=== PATIENT | female | born 1985 | race Caucasian/White ===

== ENCOUNTER 2017-02-16 22:28 | Emergency (ER) | payer SELFPAY ==
--- NOTE | 2017-02-16 22:36 | EDM.PDOC ---
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 Allergies/ADRs: Allergies cephalexin [From Keflex] Allergy (Verified 02/16/17 22:33) Anaphylactic Shock ibuprofen Allergy (Verified 02/16/17 22:33) Anaphylactic Shock Home Medications: Ambulatory Orders QUEtiapine [SEROquel] 100 mg PO DAILY 02/16/17 [Confirmed 02/16/17] Sertraline [Zoloft] 100 mg PO DAILY 02/16/17 [Confirmed 02/16/17] Review of Systems - Review of Systems Review Of Systems: ROS reveals no pertinent complaints other than HPI. Trauma Exam - Physical Exam Exam: See Below Exam Limited By: No limitations General Appearance: Reports: alert, WD/WN, no apparent distress Head: Reports: atraumatic Ears: Reports: hearing grossly normal Throat/Mouth: Reports: Normal voice, No airway compromise Neck: Reports: non-tender, full range of motion Respiratory Exam: Reports: no respiratory distress Cardiovascular: Reports: regular rate, rhythm GI/Abdominal: Reports: soft, non tender Extremities: Reports: pain with movement, tenderness, other (right shoulder tander @ rotator cuff region, NV wnl) Neurologic: Reports: no motor/sensory deficits, alert, normal mood/affect, oriented x 3 Skin: Reports: Normal color, Warm/dry Course - Vital Signs Last Recorded V/S: Last Vital Signs Temp 36.6 C 02/16/17 22:34 Pulse 67 02/16/17 22:34 Resp 20 02/16/17 22:34 BP 116/74 02/16/17 22:34 Pulse Ox 100 02/16/17 22:34 - Orders/Labs/Meds Meds: Medications Discontinued Medications Generic Name Dose Route Start Last Admin Trade Name Freq PRN Reason Stop Dose Admin Cyclobenzaprine HCl 10 mg 02/16/17 23:14 Flexeril PO 02/16/17 23:15 ONETIME ONE - Re-Assessments/Exams Free Text/Narrative Re-Assessment/Exam: 03/18/17 23:15 results discussed with Pt who states forgot to mention been having shooting pains past few days. Departure - Departure Time of Disposition: 23:16 Disposition: Home, Self-Care 01 Condition: good Clinical Impression: Rotator cuff disorder Qualifiers: Laterality: right Qualified Code(s): M67.911 - Unspecified disorder of synovium and tendon, right shoulder Instructions: Rotator Cuff Tendinitis Forms: ED Department Discharge Additional Instructions: 1) avoid excess use of right shoulder 2) see clinic Saturday for possible Neurology or Orthopedic or MRI scan of right rotator cuff tendonitis rx given: flexeril 10mg bid prn
[2017-02-16 22:37] VITALS: BP 116/74
[2017-02-16] MEDS ORDERED: Cyclobenzaprine 10 MG Tab PO ONE (23:14)
== END 2017-02-16 23:20 | disposition home or self-care (01) ==
LOC: DL.ED 22:28
DX: M67.911 Unspecified disorder of synovium and tendon, right shoulder (principal); Z88.1 Allergy status to other antibiotic agents; Z88.6 Allergy status to analgesic agent
CPT/HCPCS: 73030; 99283; A9270

== ENCOUNTER 2017-05-30 22:35 | Emergency (ER) | payer MEDICAID, OTHER ==
[2017-05-30 22:41] VITALS: BP 113/75
[2017-05-30] MEDS ORDERED: Acetaminophen/HYDROcodone 325-10 MG Tab PO ONE ×2 (22:54→23:01)
[2017-05-30] MEDS ORDERED: Acetaminophen/HYDROcodone 325-10 MG Tab ONE (23:01)
--- NOTE | 2017-05-30 23:02 | EDM.PDOC ---
ED HPI GENERAL MEDICAL PROBLEM - General Chief Complaint: Chest Pain Stated Complaint: RT BREAST VERY PAINFUL, [id number] Time Seen by Provider: 05/30/17 22:55 Source of Information: Reports: Patient, Family History Limitations: Reports: No Limitations - History of Present Illness INITIAL COMMENTS - FREE TEXT/NARRATIVE: c/o painful lump right breast past week. saw PMD told was probably cyst and to return for US. feeling worse more painful. Right Breast Pain Score (Numeric/FACES): 8 - Related Data Allergies Allergy/AdvReac Type Severity Reaction Status Date / Time cephalexin [From Keflex] Allergy Anaphylactic Verified 05/30/17 22:41 Shock ibuprofen Allergy Anaphylactic Verified 05/30/17 22:41 Shock Home Meds: Home Meds Sertraline [Zoloft] 100 mg PO DAILY 02/16/17 [History] Levothyroxine 25 mcg PO ACBREAKFAST 05/30/17 [History] traZODone HCl [Trazodone HCl] 50 mg PO QPM 05/30/17 [History] Past Medical History Musculoskeletal History: Reports: Fracture Psychiatric History: Reports: Anxiety, PTSD Other Psychiatric History: borderline personality disorder Endocrine/Metabolic History: Reports: Hyperthyroidism - Past Surgical History HEENT Surgical History: Reports: Other (See Below) Other HEENT Surgeries/Procedures: reconstructive ear surgery x12 Social & Family History - Tobacco Use Smoking Status *Q: Current Every Day Smoker Years of Tobacco use: 18 Packs/Tins Daily: 0.2 Second Hand Smoke Exposure: Yes - Recreational Drug Use Recreational Drug Use: No ED ROS GENERAL - Review of Systems Review Of Systems: ROS reveals no pertinent complaints other than HPI. ED EXAM, GENERAL - Physical Exam Exam: See Below Exam Limited By: No Limitations General Appearance: Alert, WD/WN, Mild Distress, Other (crying) Ears: Hearing Grossly Normal Throat/Mouth: Normal Voice, No Airway Compromise Head: Atraumatic Neck: Non-Tender, Full Range of Motion Respiratory/Chest: No Respiratory Distress Cardiovascular: Normal Peripheral Pulses GI/Abdominal: Soft, Non-Tender Neurological: Alert, Oriented, Normal Cognition, Normal Gait, No Motor/Sensory Deficits Psychiatric: Tearful Skin Exam: Other (lapable mass right breat @ medial superior quadrant. no s/s overlying cellulitis/lymphangitis) Course - Vital Signs Last Recorded V/S: Last Vital Signs Temp 37.3 C 05/30/17 22:38 Pulse 100 05/30/17 22:38 Resp 20 05/30/17 22:38 BP 113/75 05/30/17 22:38 Pulse Ox 96 05/30/17 22:38 - Orders/Labs/Meds Orders: Active Orders 24 hr Category Date Time Status Acetaminophen/HYDROcodone [[place] 325-10 MG] Med 05/30/17 22:54 Once 1 tab PO ONETIME ONE Departure - Departure Time of Disposition: 23:02 Disposition: Home, Self-Care 01 Condition: Good Clinical Impression: Breast pain, right - Discharge Information Instructions: Nonspecific Chest Pain, [id number] Forms: ED Department Discharge Additional Instructions: 1) avoid bending lifting straining nest 5 to 6 days 2) see family doctor tomorrow for ULTRASOUND OF BREAST IN [place] 3) try heat to sore area rx given; vicodin 5/325mg bid prn x 12 - My Orders Last 24 Hours: My Active Orders 05/30/17 22:54 Acetaminophen/HYDROcodone [[place] 325-10 MG] 1 tab PO ONETIME ONE - Assessment/Plan Last 24 Hours: My Active Orders 05/30/17 22:54 Acetaminophen/HYDROcodone [[place] 325-10 MG] 1 tab PO ONETIME ONE
== END 2017-05-30 23:08 | disposition home or self-care (01) ==
LOC: DL.ED 22:35
DX: N64.4 Mastodynia (principal); F41.9 Anxiety disorder, unspecified; E05.90 Thyrotoxicosis, unspecified without thyrotoxic crisis or storm; F17.210 Nicotine dependence, cigarettes, uncomplicated; Z98.890 Other specified postprocedural states; Z79.899 Other long term (current) drug therapy; Z88.1 Allergy status to other antibiotic agents; Z88.6 Allergy status to analgesic agent
CPT/HCPCS: 99283; A9270

== ENCOUNTER 2017-06-01 18:16 | Emergency (ER) | payer MEDICAID, OTHER ==
[2017-06-01] MEDS ORDERED: Acetaminophen 325 MG Tab PO ONE (18:55)
--- NOTE | 2017-06-01 19:56 | EDM.PDOC ---
ED HPI GENERAL MEDICAL PROBLEM - General Chief Complaint: Fever Stated Complaint: HI FEVER [id number] Time Seen by Provider: 06/01/17 19:45 Source of Information: Reports: Patient, Family (spouse) History Limitations: Reports: No Limitations - History of Present Illness INITIAL COMMENTS - FREE TEXT/NARRATIVE: This 32 yo female patient reports to the ED with a fever, generalized body aches , a cough and right breast pain. The patient has been seen in the ED in the past week and by her clinic provider in the past week for her right breast pain. The patient reports she is scheduled for further testing on 06/05/17 in [place] for her breast swelling and pain. The patient reports she has not been started on any antibiotics a this time. The patient reports she has been having a cough for the past week with greenish sputum. The patient reports she took Tylenol at about noon today. 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 (at noon) Chest Pain Score (Numeric/FACES): 8 - Related Data Allergies Allergy/AdvReac Type Severity Reaction Status Date / Time cephalexin [From Keflex] Allergy Anaphylactic Verified 06/01/17 18:39 Shock ibuprofen Allergy Anaphylactic Verified 06/01/17 18:39 Shock Home Meds: Home Meds Sertraline [Zoloft] 100 mg PO DAILY 02/16/17 [History] Levothyroxine 25 mcg PO ACBREAKFAST 05/30/17 [History] traZODone HCl [Trazodone HCl] 50 mg PO QPM 05/30/17 [History] Hydrocodone/Acetaminophen [Vicodin 5-300 mg Tablet] 1 tab PO BID PRN 06/01/17 [ History] Past Medical History Musculoskeletal History: Reports: Fracture Psychiatric History: Reports: Anxiety, PTSD Other Psychiatric History: borderline personality disorder Endocrine/Metabolic History: Reports: Hypothyroidism - Past Surgical History HEENT Surgical History: Reports: Other (See Below) Other HEENT Surgeries/Procedures: reconstructive ear surgery x12 Social & Family History - Family History Family Medical History: Noncontributory - Tobacco Use Smoking Status *Q: Current Every Day Smoker Years of Tobacco use: 20 Packs/Tins Daily: 0.5 Second Hand Smoke Exposure: Yes - Caffeine Use Caffeine Use: Reports: None - Recreational Drug Use Recreational Drug Use: No ED ROS GENERAL - Review of Systems Review Of Systems: ROS reveals no pertinent complaints other than HPI. ED EXAM, GENERAL - Physical Exam Exam: See Below Exam Limited By: No Limitations General Appearance: Alert, WD/WN, Moderate Distress, Thin Eye Exam: Bilateral Eye: EOMI, Normal Inspection, PERRL Ears: Normal External Exam, Other (canals have been surgically closed) Nose: Normal Inspection, Normal Mucosa, No Blood Throat/Mouth: Normal Inspection, Normal Lips, Normal Teeth, Normal Gums, Normal Voice, No Airway Compromise, Inflammation (posterior pharynx) Head: Atraumatic, Normocephalic Neck: Normal Inspection, Supple, Non-Tender, Full Range of Motion Respiratory/Chest: No Respiratory Distress, Lungs Clear, Normal Breath Sounds, No Accessory Muscle Use, Chest Non-Tender Cardiovascular: Normal Peripheral Pulses, Regular Rate, Rhythm, No Edema, No Gallop, No JVD, No Murmur, No Rub GI/Abdominal: Normal Bowel Sounds, Soft, Non-Tender, No Organomegaly, No Distention, No Abnormal Bruit, No Mass (Female) Exam: Deferred Rectal (Female) Exam: Deferred Back Exam: Normal Inspection, Full Range of Motion, NT Extremities: Normal Inspection, Normal Range of Motion, Non-Tender, Normal Capillary Refill, No Pedal Edema Neurological: Alert, Oriented, CN II-XII Intact, Normal Cognition, Normal Gait, Normal Reflexes, No Motor/Sensory Deficits Psychiatric: Normal Affect, Normal Mood Skin Exam: Warm, Dry, Intact, Normal Color (breast), No Rash, Erythema Lymphatic: No Adenopathy Course - Vital Signs Last Recorded V/S: Last Vital Signs Temp 38.9 C H 06/01/17 19:05 Pulse 108 H 06/01/17 18:44 Resp 20 06/01/17 18:44 BP 102/58 L 06/01/17 18:44 Pulse Ox 100 06/01/17 18:44 - Orders/Labs/Meds Orders: Active Orders 24 hr Category Date Time Status Chest 2V [CR] Urgent Exams 06/01/17 19:56 Ordered CULTURE BLOOD [BC] Stat Lab 06/01/17 19:50 Ordered CULTURE BLOOD [BC] Stat Lab 06/01/17 19:50 Ordered CULTURE STREP A CONFIRMATION [RM] Stat Lab 06/01/17 18:53 Results STREP SCRN A RAPID W CULT CONF [RM] Stat Lab 06/01/17 18:53 Results Blood Culture x2 Reflex Set [OM.PC] Stat Oth 06/01/17 19:50 Ordered Labs: Laboratory Tests 06/01/17 06/01/17 06/01/17 Range/Units 19:23 19:23 19:23 WBC (5.0-10.0) 10^3/uL RBC (4.2-5.4) 10^6/uL Hgb (12.0-16.0) g/dL Hct (37.0-47.0) % MCV (80-100) fL MCH (27.0-34.0) pg MCHC (33.0-35.0) g/dL Plt Count (150-450) 10^3/uL Neut % (Auto) (42.2-75.2) % Lymph % (Auto) (20.5-50.1) % [place] % (Auto) (2-8) % Eos % (Auto) (1.0-3.0) % Baso % (Auto) (0.0-1.0) % Sodium (135-145) mmol/L Potassium (3.6-5.0) mmol/L Chloride (101-111) mmol/L Carbon Dioxide (21.0-31.0) mmol/L Anion Gap BUN (7-18) mg/dL Creatinine (0.6-1.3) mg/dL Est Cr Clr Drug Dosing Estimated GFR (MDRD) BUN/Creatinine Ratio Glucose (74-105) mg/dL Lactic Acid (0.5-2.2) mmol/L Calcium (8.4-10.2) mg/dl Total Bilirubin (0.2-1.0) mg/dL AST (10-42) IU/L ALT (10-60) IU/L Alkaline Phosphatase (42-121) IU/L Total Protein (6.7-8.2) g/dl Albumin (3.2-5.5) g/dl Globulin Albumin/Globulin Ratio Urine Color Yellow (YELLOW) Urine Appearance Clear (CLEAR) Urine pH 7.0 (5.0-9.0) Ur Specific Busy 1.010 (1.005-1.030) Urine Protein Negative (NEGATIVE) Urine Glucose (UA) Negative (NEGATIVE) Urine Ketones Negative (NEGATIVE) Urine Occult Blood Trace-lysed H (NEGATIVE) Urine Nitrite Negative (NEGATIVE) Urine Bilirubin Negative (NEGATIVE) Urine Urobilinogen 0.2 (0.2-1.0) mg/dL Ur Leukocyte Esterase Negative (NEGATIVE) Urine RBC 0-5 /HPF Urine WBC 0-5 (0-5/HPF) /HPF Ur Epithelial Cells Rare /HPF Urine Bacteria Rare (0-FEW/HPF) /HPF Urine HCG, Qual Negative Urine Opiates Screen Positive H (NEGATIVE) Ur Oxycodone Screen Negative (NEGATIVE) Urine Methadone Screen Negative (NEGATIVE) Ur Barbiturates Screen Negative (NEGATIVE) U Tricyclic Antidepress Negative (NEGATIVE) Ur Phencyclidine Scrn Negative (NEGATIVE) Ur Amphetamine Screen Negative (NEGATIVE) U Methamphetamines Scrn Negative (NEGATIVE) Urine MDMA Screen Negative (NEGATIVE) U Benzodiazepines Scrn Negative (NEGATIVE) Urine Cocaine Screen Negative (NEGATIVE) U Marijuana (THC) Screen Negative (NEGATIVE) 06/01/17 06/01/17 06/01/17 Range/Units 20:00 20:00 20:00 WBC 15.0 H (5.0-10.0) 10^3/uL RBC 3.87 L (4.2-5.4) 10^6/uL Hgb 11.9 L (12.0-16.0) g/dL Hct 34.9 L (37.0-47.0) % MCV 90.2 (80-100) fL MCH 30.7 (27.0-34.0) pg MCHC 34.1 (33.0-35.0) g/dL Plt Count 178 (150-450) 10^3/uL Neut % (Auto) 80.0 H (42.2-75.2) % Lymph % (Auto) 12.7 L (20.5-50.1) % [place] % (Auto) 6.7 (2-8) % Eos % (Auto) 0.5 L (1.0-3.0) % Baso % (Auto) 0.1 (0.0-1.0) % Sodium 137 (135-145) mmol/L Potassium 3.5 L (3.6-5.0) mmol/L Chloride 104 (101-111) mmol/L Carbon Dioxide 23.0 (21.0-31.0) mmol/L Anion Gap 13.5 BUN 7 (7-18) mg/dL Creatinine 0.8 (0.6-1.3) mg/dL Est Cr Clr Drug Dosing TNP Estimated GFR (MDRD) > 60 BUN/Creatinine Ratio 8.75 Glucose 96 (74-105) mg/dL Lactic Acid 0.5 (0.5-2.2) mmol/L Calcium 8.9 (8.4-10.2) mg/dl Total Bilirubin 0.9 (0.2-1.0) mg/dL AST 16 (10-42) IU/L ALT 13 (10-60) IU/L Alkaline Phosphatase 68 (42-121) IU/L Total Protein 6.8 (6.7-8.2) g/dl Albumin 3.9 (3.2-5.5) g/dl Globulin 2.9 Albumin/Globulin Ratio 1.34 Urine Color (YELLOW) Urine Appearance (CLEAR) Urine pH (5.0-9.0) Ur Specific Busy (1.005-1.030) Urine Protein (NEGATIVE) Urine Glucose (UA) (NEGATIVE) Urine Ketones (NEGATIVE) Urine Occult Blood (NEGATIVE) Urine Nitrite (NEGATIVE) Urine Bilirubin (NEGATIVE) Urine Urobilinogen (0.2-1.0) mg/dL Ur Leukocyte Esterase (NEGATIVE) Urine RBC /HPF Urine WBC (0-5/HPF) /HPF Ur Epithelial Cells /HPF Urine Bacteria (0-FEW/HPF) /HPF Urine HCG, Qual Urine Opiates Screen (NEGATIVE) Ur Oxycodone Screen (NEGATIVE) Urine Methadone Screen (NEGATIVE) Ur Barbiturates Screen (NEGATIVE) U Tricyclic Antidepress (NEGATIVE) Ur Phencyclidine Scrn (NEGATIVE) Ur Amphetamine Screen (NEGATIVE) U Methamphetamines Scrn (NEGATIVE) Urine MDMA Screen (NEGATIVE) U Benzodiazepines Scrn (NEGATIVE) Urine Cocaine Screen (NEGATIVE) U Marijuana (THC) Screen (NEGATIVE) Meds: Medications Discontinued Medications Generic Name Dose Route Start Last Admin Trade Name Freq PRN Reason Stop Dose Admin Acetaminophen 650 mg 06/01/17 18:55 06/01/17 19:04 Tylenol PO 06/01/17 18:56 650 mg NOW ONE Administration Amoxicillin/Clavulanate Potassium 1 tab 06/01/17 20:53 Augmentin 875 Mg/125 Mg PO 06/01/17 20:54 ONETIME ONE Guaifenesin/Codeine Phosphate 5 ml 06/01/17 20:53 Robitussin Ac PO 06/01/17 20:54 ONETIME ONE Departure - Departure Time of Disposition: 20:57 Disposition: Home, Self-Care 01 Condition: Fair Clinical Impression: Pneumonia Qualifiers: Pneumonia type: due to unspecified organism Laterality: left Lung location: lower lobe of lung Qualified Code(s): J18.1 - Lobar pneumonia, unspecified organism - Discharge Information Instructions: Community-Acquired Pneumonia, Adult, [id number] Forms: ED Department Discharge Care Plan Goals: The patient was advised of the examination, lab and x-ray results during the visit. The patient was given an oral dose of Augmentin and Robitussin AC while in the ED. The patient was discharged with a dose of Augmentin for the morning and a script for Augmentin (875/125) to take 1 by mouth 2 times per day for 10 days and Robitussin AC #100 mL to take 5 mL by mouth at bedtime as needed. If the patient has any additional symptoms or concerns, the patient should follow- up with her primary care facility or return to the emergency department. - My Orders Last 24 Hours: My Active Orders 06/01/17 18:53 CULTURE STREP A CONFIRMATION [RM] Stat STREP SCRN A RAPID W CULT CONF [RM] Stat 06/01/17 19:50 CULTURE BLOOD [BC] Stat CULTURE BLOOD [BC] Stat Blood Culture x2 Reflex Set [OM.PC] Stat 06/01/17 19:56 Chest 2V [CR] Urgent - Assessment/Plan Last 24 Hours: My Active Orders 06/01/17 18:53 CULTURE STREP A CONFIRMATION [RM] Stat STREP SCRN A RAPID W CULT CONF [RM] Stat 06/01/17 19:50 CULTURE BLOOD [BC] Stat CULTURE BLOOD [BC] Stat Blood Culture x2 Reflex Set [OM.PC] Stat 06/01/17 19:56 Chest 2V [CR] Urgent
[2017-06-01 20:22] LABS: CHLORIDE,CL 104 mmol/L (101-111); SODIUM,NA 137 mmol/L (135-145)
[2017-06-01] MEDS ORDERED: Codeine/guaiFENesin 100-10 MG/5 ML Syrup 5 ML Cup PO ONE (20:53)
[2017-06-01] MEDS ORDERED: Amoxicillin/Clavulanate K 875-125 MG Tab PO ONE ×2 (20:53→20:58)
[2017-06-01] MEDS ORDERED: Amoxicillin/Clavulanate K 875-125 MG Tab ONE (20:58)
[2017-06-01 21:42] VITALS: BP 105/67
== END 2017-06-01 21:08 | disposition home or self-care (01) ==
LOC: DL.ED 18:16
DX: J18.9 Pneumonia, unspecified organism (principal); F41.9 Anxiety disorder, unspecified; E03.9 Hypothyroidism, unspecified; F17.210 Nicotine dependence, cigarettes, uncomplicated; Z79.899 Other long term (current) drug therapy
CPT/HCPCS: 36415; 71020; 80053; 80305; 81001; 81025; 83605; 85025; 87040; 87081; 87430; 99283; A9270

== ENCOUNTER 2017-06-07 20:08 | Emergency (ER) | payer MEDICAID, OTHER ==
[2017-06-07 22:35] LABS: CHLORIDE,CL 104 mmol/L (101-111); SODIUM,NA 139 mmol/L (135-145)
--- NOTE | 2017-06-07 22:44 | EDM.PDOC ---
ED HPI GENERAL MEDICAL PROBLEM - General Chief Complaint: Gastrointestinal Problem Stated Complaint: BLOOD IN STOOL, [id number] Time Seen by Provider: 06/07/17 21:00 Source of Information: Reports: Patient History Limitations: Reports: No Limitations - History of Present Illness INITIAL COMMENTS - FREE TEXT/NARRATIVE: noticing blood with bowel movement for past week Duration: Day(s): Chest Pain Score (Numeric/FACES): 6 - Related Data Allergies Allergy/AdvReac Type Severity Reaction Status Date / Time cephalexin [From Keflex] Allergy Anaphylactic Verified 06/07/17 20:16 Shock ibuprofen Allergy Anaphylactic Verified 06/07/17 20:16 Shock Home Meds: Home Meds Sertraline [Zoloft] 100 mg PO DAILY 02/16/17 [History] Levothyroxine 25 mcg PO ACBREAKFAST 05/30/17 [History] traZODone HCl [Trazodone HCl] 50 mg PO QPM 05/30/17 [History] Amoxicillin/Potassium Clav [Amox-Clav 875-125 mg Tablet] 1 tab PO BID 06/07/17 [ History] guaiFENesin/Codeine Phosphate [Cheratussin AC Syrup] 5 ml PO BEDTIME PRN [History] Past Medical History Respiratory History: Reports: Bronchitis, Recurrent Musculoskeletal History: Reports: Fracture Neurological History: Reports: Migraines Psychiatric History: Reports: Anxiety, PTSD Other Psychiatric History: borderline personality disorder Endocrine/Metabolic History: Reports: Hypothyroidism Hematologic History: Reports: Anemia - Infectious Disease History Infectious Disease History: Reports: Chicken Pox - Past Surgical History HEENT Surgical History: Reports: Other (See Below) Other HEENT Surgeries/Procedures: reconstructive ear surgery x12 Social & Family History - Family History Family Medical History: Noncontributory Cardiac: Reports: [place] Endocrine/Metabolic: Reports: Hypothyroidism Oncologic: Reports: Colon - Tobacco Use Smoking Status *Q: Current Every Day Smoker Years of Tobacco use: 18 Packs/Tins Daily: 0.1 Second Hand Smoke Exposure: Yes - Caffeine Use Caffeine Use: Reports: Coffee, Energy Drinks, Soda, Tea - Recreational Drug Use Recreational Drug Use: No ED ROS GENERAL - Review of Systems Review Of Systems: See Below Constitutional: Reports: No Symptoms HEENT: Reports: No Symptoms Respiratory: Reports: No Symptoms, Cough (Current tx Augmentin for bronchitis/ pneumonia for one week) Cardiovascular: Reports: No Symptoms GI/Abdominal: Reports: Bloody Stool, Other (4-5 stools perday with blood on tissue and in stool, unable to determine stool color blood in toilet.). Denies : Abdominal Pain, Decreased Appetite, Vomiting : Reports: No Symptoms Musculoskeletal: Reports: No Symptoms Skin: Reports: No Symptoms Neurological: Reports: No Symptoms Psychiatric: Reports: No Symptoms ED EXAM, GI/ABD - Physical Exam Exam: See Below Exam Limited By: No Limitations General Appearance: Alert, No Apparent Distress Eyes: Bilateral: EOMI Ears: Hearing Loss. No: Normal External Exam, Normal Canal (absent canals) Nose: Normal Inspection Throat/Mouth: Normal Inspection Head: Atraumatic, Normocephalic Neck: Normal Inspection Respiratory/Chest: No Respiratory Distress, Lungs Clear, Normal Breath Sounds Cardiovascular: Normal Peripheral Pulses, Regular Rate, Rhythm GI/Abdominal: Normal Bowel Sounds, Soft, No Distention. No: Tenderness Rectal (Female) Exam: Normal Exam, Normal Rectal Tone, Other (no stool in rectal vault scant bright red blood on glove, smallexternal hemorrhoids no fissures) Back Exam: Normal Inspection Extremities: Normal Inspection Neurological: Alert, Oriented, Normal Cognition Psychiatric: Normal Affect Skin Exam: Warm, Dry, Intact, Normal Color Course - Vital Signs Last Recorded V/S: Last Vital Signs Temp 97 F 06/07/17 22:53 Pulse 67 06/07/17 22:53 Resp 18 06/07/17 20:23 BP 107/75 06/07/17 22:53 Pulse Ox 97 06/07/17 20:23 - Orders/Labs/Meds Labs: Laboratory Tests 06/07/17 06/07/17 06/07/17 Range/Units 21:15 22:10 22:10 WBC 13.9 H (5.0-10.0) 10^3/uL RBC 3.95 L (4.2-5.4) 10^6/uL Hgb 12.0 (12.0-16.0) g/dL Hct 36.0 L (37.0-47.0) % MCV 91.1 (80-100) fL MCH 30.4 (27.0-34.0) pg MCHC 33.3 (33.0-35.0) g/dL Plt Count 253 (150-450) 10^3/uL Neut % (Auto) 68.4 (42.2-75.2) % Lymph % (Auto) 21.9 (20.5-50.1) % [facility] % (Auto) 5.3 (2-8) % Eos % (Auto) 4.2 H (1.0-3.0) % Baso % (Auto) 0.2 (0.0-1.0) % PT 9.9 (9.0-12.0) SEC INR 1.0 (0.9-1.2) Sodium (135-145) mmol/L Potassium (3.6-5.0) mmol/L Chloride (101-111) mmol/L Carbon Dioxide (21.0-31.0) mmol/L Anion Gap BUN (7-18) mg/dL Creatinine (0.6-1.3) mg/dL Est Cr Clr Drug Dosing Estimated GFR (MDRD) BUN/Creatinine Ratio Glucose (74-105) mg/dL Calcium (8.4-10.2) mg/dl Total Bilirubin (0.2-1.0) mg/dL AST (10-42) IU/L ALT (10-60) IU/L Alkaline Phosphatase (42-121) IU/L Total Protein (6.7-8.2) g/dl Albumin (3.2-5.5) g/dl Globulin Albumin/Globulin Ratio Urine Color Yellow (YELLOW) Urine Appearance Slightly cloudy (CLEAR) Urine pH 6.0 (5.0-9.0) Ur Specific [place] 1.015 (1.005-1.030) Urine Protein Negative (NEGATIVE) Urine Glucose (UA) Negative (NEGATIVE) Urine Ketones Negative (NEGATIVE) Urine Occult Blood Negative (NEGATIVE) Urine Nitrite Negative (NEGATIVE) Urine Bilirubin Negative (NEGATIVE) Urine Urobilinogen 0.2 (0.2-1.0) mg/dL Ur Leukocyte Esterase Negative (NEGATIVE) Urine RBC 0-5 /HPF Urine WBC 0-5 (0-5/HPF) /HPF Ur Epithelial Cells Many H /HPF Urine Bacteria Moderate H (0-FEW/HPF) /HPF Urinalysis Comment 06/07/17 Range/Units 22:10 WBC (5.0-10.0) 10^3/uL RBC (4.2-5.4) 10^6/uL Hgb (12.0-16.0) g/dL Hct (37.0-47.0) % MCV (80-100) fL MCH (27.0-34.0) pg MCHC (33.0-35.0) g/dL Plt Count (150-450) 10^3/uL Neut % (Auto) (42.2-75.2) % Lymph % (Auto) (20.5-50.1) % [facility] % (Auto) (2-8) % Eos % (Auto) (1.0-3.0) % Baso % (Auto) (0.0-1.0) % PT (9.0-12.0) SEC INR (0.9-1.2) Sodium 139 (135-145) mmol/L Potassium 4.0 (3.6-5.0) mmol/L Chloride 104 (101-111) mmol/L Carbon Dioxide 25.0 (21.0-31.0) mmol/L Anion Gap 14.0 BUN 16 (7-18) mg/dL Creatinine 0.8 (0.6-1.3) mg/dL Est Cr Clr Drug Dosing TNP Estimated GFR (MDRD) > 60 BUN/Creatinine Ratio 20.00 Glucose 90 (74-105) mg/dL Calcium 9.0 (8.4-10.2) mg/dl Total Bilirubin 0.2 (0.2-1.0) mg/dL AST 17 (10-42) IU/L ALT 12 (10-60) IU/L Alkaline Phosphatase 80 (42-121) IU/L Total Protein 6.3 L (6.7-8.2) g/dl Albumin 3.5 (3.2-5.5) g/dl Globulin 2.8 Albumin/Globulin Ratio 1.25 Urine Color (YELLOW) Urine Appearance (CLEAR) Urine pH (5.0-9.0) Ur Specific [place] (1.005-1.030) Urine Protein (NEGATIVE) Urine Glucose (UA) (NEGATIVE) Urine Ketones (NEGATIVE) Urine Occult Blood (NEGATIVE) Urine Nitrite (NEGATIVE) Urine Bilirubin (NEGATIVE) Urine Urobilinogen (0.2-1.0) mg/dL Ur Leukocyte Esterase (NEGATIVE) Urine RBC /HPF Urine WBC (0-5/HPF) /HPF Ur Epithelial Cells /HPF Urine Bacteria (0-FEW/HPF) /HPF Urinalysis Comment Departure - Departure Time of Disposition: 22:39 Disposition: Home, Self-Care 01 Condition: Good Clinical Impression: Hemorrhoid Qualifiers: Hemorrhoid type: unspecified Qualified Code(s): K64.9 - Unspecified hemorrhoids - Discharge Information Instructions: Diarrhea, Adult, [id number], Hemorrhoids, [id number] Forms: ED Department Discharge Additional Instructions: increase fluids follow up if symptoms worsen increase fruit and fiber in diet. Recheck in clinic early next week
[2017-06-07 23:02] VITALS: BP 107/75
== END 2017-06-07 23:02 | disposition home or self-care (01) ==
LOC: DL.ED 20:08
DX: K64.9 Unspecified hemorrhoids (principal); F41.9 Anxiety disorder, unspecified; E03.9 Hypothyroidism, unspecified; F17.210 Nicotine dependence, cigarettes, uncomplicated; Z86.2 Personal history of diseases of the blood and blood-forming organs and certain disorders involving the immune mechanism; Z98.890 Other specified postprocedural states; Z79.899 Other long term (current) drug therapy; Z88.1 Allergy status to other antibiotic agents; Z88.6 Allergy status to analgesic agent
CPT/HCPCS: 36415; 80053; 81001; 82272; 85025; 85610; 99284

== ENCOUNTER 2017-07-09 05:55 | Day surgery (SDC) | payer MEDICAID ==
[2017-07-09] MEDS ORDERED: Sodium Chloride 0.9% 10 ML Syringe FLUSH PRN (06:00)
[2017-07-09] MEDS ORDERED: Dextrose 5%-0.45% NaCl 1,000 ML IV SCH (06:00)
[2017-07-09] MEDS ORDERED: Midazolam 1 MG/ML 2 ML SDV ONE (06:08)
[2017-07-09] MEDS ORDERED: fentaNYL 100 MCG/2 ML SDV ONE (06:08)
[2017-07-09] MEDS ORDERED: fentaNYL 100 MCG/2 ML SDV IV ONE ×3 (07:15→11:27)
[2017-07-09] MEDS ORDERED: Midazolam 1 MG/ML 2 ML SDV IV ONE ×7 (07:16→11:27)
[2017-07-09 09:12] VITALS: BP 102/67
--- NOTE | 2017-07-09 10:17 | OR ---
DATE: 07/09/2017 PROCEDURE: Total colonoscopy. INSTRUMENT USED: PCF-H180AL Olympus video colonoscope. PREMEDICATIONS: Fentanyl 100 mcg intravenous, Versed 3.5 mg intravenous. Nasal O2 cannula. The procedure was done under pulse oximetry, BP recording, and child monitor. INDICATION: The patient with recent alteration in bowel habits and rectal bleeding, unexplained, and not responsive to medical measures. Colonoscopic examination is done for detection of any polypoid lesions and removal, endoscopic hemostasis therapy if needed. DESCRIPTION OF PROCEDURE: Initial rectal exam was unremarkable. Rigid anoscopy was normal. The colonoscope was passed with ease up to the ileocecal area, photographs were taken of the normal-appearing cecum, identified by landmarks of appendiceal orifice and thin-lipped ileocecal folds. No bleeding was noted from any of the visualized areas at the commencement of the examination. No stricture. No vascular ectasia. No large isolated ulcerations seen. No evidence of diffuse inflammatory bowel disease in the form of friability, contact bleeding, or ulcerations. No polyp or tumor mass identified. Probing the proximal sides of folds and flexures, using adequate distention and clearing up the stool material, withdrawal of the scope was made, cecum to rectum time over 6 minutes. No bleeding was noted from any of the visualized areas at the completion of examination. IMPRESSION: Normal study. The patient tolerated the procedure well. [facility] /[id number]
== END 2017-07-09 09:20 | disposition home or self-care (01) ==
LOC: DL.ENDO 05:55
PROVIDERS: ATTEND Internal Medicine Gastroenterology
DX: R19.4 Change in bowel habit (principal); K62.5 Hemorrhage of anus and rectum; E03.9 Hypothyroidism, unspecified; F32.9 Major depressive disorder, single episode, unspecified; F17.210 Nicotine dependence, cigarettes, uncomplicated; Z88.1 Allergy status to other antibiotic agents; Z88.8 Allergy status to other drugs, medicaments and biological substances; Z79.899 Other long term (current) drug therapy
CPT/HCPCS: 45378; J2250; J3010; J7042

== ENCOUNTER 2017-11-26 19:43 | Emergency (ER) | payer MEDICAID ==
[2017-11-26] MEDS ORDERED: Clindamycin HCl 150 MG Cap PO ONE (19:44)
[2017-11-26 19:50] VITALS: BP 120/77
--- NOTE | 2017-11-26 20:35 | EDM.PDOC ---
ED HPI GENERAL MEDICAL PROBLEM - General Chief Complaint: ENT Problem Stated Complaint: EAR INFECTION [id number] Time Seen by Provider: 11/26/17 20:00 Source of Information: Reports: Patient, Family History Limitations: Reports: No Limitations - History of Present Illness INITIAL COMMENTS - FREE TEXT/NARRATIVE: ED for wound check, Patient reports surgery for hearing 13 days ago, SO noted "button draing yellow pus and area has been more tender. 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 Sutures from incision behind ear removed 8 days ago. No follow up with surgeon scheduled until January. Patient reports feeling chilled last 2 days. Location: Reports: Head Left Head Pain Score (Numeric/FACES): 6 - Related Data Allergies Allergy/AdvReac Type Severity Reaction Status Date / Time cephalexin [From Keflex] Allergy Anaphylactic Verified 11/26/17 19:50 Shock ibuprofen Allergy Anaphylactic Verified 11/26/17 19:50 Shock Home Meds: Home Meds Levothyroxine 25 mcg PO ACBREAKFAST 05/30/17 [History] Escitalopram [Lexapro] 1 tab PO DAILY 07/08/17 [History] Cyclobenzaprine [Flexeril] 10 mg PO TID PRN 11/26/17 [History] Mirtazapine 15 mg PO BEDTIME 11/26/17 [History] Past Medical History HEENT History: Reports: Impaired Vision Other HEENT History: WEARS CORRECTIVE LENSES Cardiovascular History: Reports: None Respiratory History: Reports: Bronchitis, Recurrent Gastrointestinal History: Reports: None Genitourinary History: Reports: None 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: Musculoskeletal History: Reports: Fracture Other Musculoskeletal History: FX RIGHT COLLAR BONE Neurological History: Reports: Migraines Psychiatric History: Reports: Anxiety, Depression, PTSD Other Psychiatric History: borderline personality disorder Endocrine/Metabolic History: Reports: Hypothyroidism Hematologic History: Reports: Anemia Immunologic History: Reports: None Oncologic (Cancer) History: Reports: None Dermatologic History: Reports: None - Infectious Disease History Infectious Disease History: Reports: Chicken Pox - Past Surgical History Head Surgeries/Procedures: Reports: None HEENT Surgical History: Reports: Other (See Below) Other HEENT Surgeries/Procedures: reconstructive ear surgery x12. BAHA surgeru Cardiovascular Surgical History: Reports: None Respiratory Surgical History: Reports: None GI Surgical History: Reports: None Endocrine Surgical History: Reports: None Neurological Surgical History: Reports: None Musculoskeletal Surgical History: Reports: None Oncologic Surgical History: Reports: None Social & Family History - Family History Family Medical History: Noncontributory Cardiac: Reports: [place] Endocrine/Metabolic: Reports: Hypothyroidism Oncologic: Reports: Brain, Breast, Pancreatic - Tobacco Use Smoking Status *Q: Current Every Day Smoker Years of Tobacco use: 18 Packs/Tins Daily: 0.3 Used Tobacco, but Quit: No Second Hand Smoke Exposure: Yes - Caffeine Use Caffeine Use: Reports: Coffee, Energy Drinks, Soda, Tea - Recreational Drug Use Recreational Drug Use: No ED ROS GENERAL - Review of Systems Review Of Systems: ROS reveals no pertinent complaints other than HPI. ED EXAM, SKIN/RASH Exam: See Below Exam Limited By: No Limitations General Appearance: Alert, No Apparent Distress Eye Exam: Bilateral Eye: EOMI Ears: No: Normal Canal (absent), Normal TMs (absent) Nose: Normal Inspection Throat/Mouth: Normal Inspection Head: Other (recent healing incision behind left ear, tender, no drainage. Snap like device in scalp mild swelling , tender, scant bloody drainage with pressure ) Neck: Normal Inspection. No: Lymphadenopathy (L), Lymphadenopathy (R) Respiratory/Chest: No Respiratory Distress Cardiovascular: Normal Peripheral Pulses, Regular Rate, Rhythm Extremities: Normal Inspection Neurological: Alert, Oriented Psychiatric: Normal Affect Skin: Wound/Incision (above) Location, Skin: Head Associated features: Tenderness. No: Warmth Course - Vital Signs Last Recorded V/S: Last Vital Signs Temp 97.2 F 11/26/17 19:49 Pulse 96 11/26/17 19:49 Resp 20 11/26/17 19:49 BP 120/77 11/26/17 19:49 Pulse Ox 100 11/26/17 19:49 - Orders/Labs/Meds Orders: Active Orders 24 hr Category Date Time Status CULTURE BLOOD [BC] Stat Lab 11/26/17 20:12 Ordered CULTURE WOUND [RM] Stat Lab 11/26/17 20:13 Ordered Labs: Laboratory Tests 11/26/17 Range/Units 20:18 WBC 14.9 H (5.0-10.0) 10^3/uL RBC 4.29 (4.2-5.4) 10^6/uL Hgb 13.3 (12.0-16.0) g/dL Hct 38.3 (37.0-47.0) % MCV 89.3 (80-100) fL MCH 31.0 (27.0-34.0) pg MCHC 34.7 (33.0-35.0) g/dL Plt Count 219 (150-450) 10^3/uL Neut % (Auto) 70.4 (42.2-75.2) % Lymph % (Auto) 21.4 (20.5-50.1) % [place] % (Auto) 5.4 (2-8) % Eos % (Auto) 2.6 (1.0-3.0) % Baso % (Auto) 0.2 (0.0-1.0) % Departure - Departure Time of Disposition: 20:32 Disposition: Home, Self-Care 01 Condition: Good Clinical Impression: Wound infection - Discharge Information Instructions: Wound Infection, [id number] Additional Instructions: keep area clean follow up with Dr. Gilbert in am clindamycin 150mg 2 capsules 4 times daily for one week - My Orders Last 24 Hours: My Active Orders 11/26/17 20:12 CULTURE BLOOD [BC] Stat 11/26/17 20:13 CULTURE WOUND [RM] Stat - Assessment/Plan Last 24 Hours: My Active Orders 11/26/17 20:12 CULTURE BLOOD [BC] Stat 11/26/17 20:13 CULTURE WOUND [RM] Stat
[2017-11-26] MEDS ORDERED: Clindamycin HCl 150 MG Cap ONE (20:37)
== END 2017-11-26 20:41 | disposition home or self-care (01) ==
LOC: DL.ED 19:43
DX: T81.4XXA Infection following a procedure, initial encounter (principal); F17.210 Nicotine dependence, cigarettes, uncomplicated; Z88.1 Allergy status to other antibiotic agents; Z79.899 Other long term (current) drug therapy; Z98.890 Other specified postprocedural states
CPT/HCPCS: 36415; 85025; 87040; 87070; 99283; A9270-GY

== ENCOUNTER 2018-01-24 17:55 | Emergency (ER) | payer MEDICAID ==
[2018-01-24 18:17] VITALS: BP 113/69
[2018-01-24 20:33] LABS: CHLORIDE,CL 101 mmol/L (101-111); SODIUM,NA 134 mmol/L (135-145)
--- NOTE | 2018-01-24 20:56 | EDM.PDOC ---
ED HPI GENERAL MEDICAL PROBLEM - General Chief Complaint: Skin Complaint Stated Complaint: infection head [id number] Time Seen by Provider: 01/24/18 19:55 Source of Information: Reports: Patient, Family, Prison Records, RN History Limitations: Reports: No Limitations - History of Present Illness INITIAL COMMENTS - FREE TEXT/NARRATIVE: Pt presents to the ER with c/o possible infection of a "button" that was placed on her left scalp behind the ear in November. The button was placed for a cochlear implant in January. Patient states she noticed some drainage from the area. Last evening her used a q tip and rolled along the skin below the button. He states a large amount of white/green pus with a small white hard piece in it came out around the button. Patient denies fever, chills, N/V/D. She states she is 13 weeks and is concerned the infection will affect the baby. Onset: Gradual Location: Reports: Head Quality: Reports: Throbbing Severity: Moderate Improves with: Reports: None Worsens with: Reports: None Associated Symptoms: Reports: No Other Symptoms Left Head Pain Score (Numeric/FACES): 6 - Related Data Allergies Allergy/AdvReac Type Severity Reaction Status Date / Time cephalexin [From Keflex] Allergy Anaphylactic Verified 11/26/17 19:50 Shock ibuprofen Allergy Anaphylactic Verified 11/26/17 19:50 Shock Home Meds: Home Meds Levothyroxine 25 mcg PO ACBREAKFAST 05/30/17 [History] Escitalopram [Lexapro] 1 tab PO DAILY 07/08/17 [History] Cyclobenzaprine [Flexeril] 10 mg PO TID PRN 11/26/17 [History] Mirtazapine 15 mg PO BEDTIME 11/26/17 [History] Past Medical History HEENT History: Reports: Impaired Vision Other HEENT History: WEARS CORRECTIVE LENSES Cardiovascular History: Reports: None Respiratory History: Reports: Bronchitis, Recurrent Gastrointestinal History: Reports: None Genitourinary History: Reports: None 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 13 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 Musculoskeletal History: Reports: Fracture Other Musculoskeletal History: FX RIGHT COLLAR BONE Neurological History: Reports: Migraines Psychiatric History: Reports: Anxiety, Depression, PTSD Other Psychiatric History: borderline personality disorder Endocrine/Metabolic History: Reports: Hypothyroidism Hematologic History: Reports: Anemia Immunologic History: Reports: None Oncologic (Cancer) History: Reports: None Dermatologic History: Reports: None - Infectious Disease History Infectious Disease History: Reports: Chicken Pox - Past Surgical History Head Surgeries/Procedures: Reports: None HEENT Surgical History: Reports: Other (See Below) Other HEENT Surgeries/Procedures: reconstructive ear surgery x12. BERNARD hines Cardiovascular Surgical History: Reports: None Respiratory Surgical History: Reports: None GI Surgical History: Reports: None Endocrine Surgical History: Reports: None Neurological Surgical History: Reports: None Musculoskeletal Surgical History: Reports: None Oncologic Surgical History: Reports: None Social & Family History - Family History Family Medical History: Noncontributory Cardiac: Reports: [place] Endocrine/Metabolic: Reports: Hypothyroidism Oncologic: Reports: Brain, Breast, Pancreatic - Tobacco Use Smoking Status *Q: Current Every Day Smoker Years of Tobacco use: 18 Packs/Tins Daily: 0.3 Used Tobacco, but Quit: No Second Hand Smoke Exposure: Yes - Caffeine Use Caffeine Use: Reports: Coffee, Energy Drinks, Soda, Tea - Recreational Drug Use Recreational Drug Use: No ED ROS GENERAL - Review of Systems Review Of Systems: ROS reveals no pertinent complaints other than HPI. ED EXAM, SKIN/RASH Exam: See Below Exam Limited By: Other (Patient deaf, left ear congenital deformity) Eye Exam: Bilateral Eye: EOMI, Normal Inspection, PERRL Ears: Hearing Grossly Normal (with hearing aid). No: Normal External Exam ( Congenital deformity, no canal) Nose: Normal Inspection Throat/Mouth: Normal Inspection, Normal Voice, No Airway Compromise Head: Atraumatic, Normocephalic, Other (some dry crust around the area of the button behind the left ear. ) Neck: Normal Inspection, Supple, Non-Tender, Full Range of Motion Respiratory/Chest: No Respiratory Distress, Lungs Clear, Normal Breath Sounds, No Accessory Muscle Use, Chest Non-Tender Cardiovascular: Normal Peripheral Pulses, Regular Rate, Rhythm, No Edema, No Gallop, No JVD, No Murmur, No Rub Peripheral Pulses: 2+: Radial (L), Radial (R) GI/Abdominal: Normal Bowel Sounds, Soft, Non-Tender, No Distention (Female) Exam: Deferred Rectal (Female) Exam: Deferred Back Exam: Normal Inspection, Full Range of Motion Extremities: Normal Inspection, Normal Range of Motion, Non-Tender, No Pedal Edema, Normal Capillary Refill Neurological: Alert, Oriented, CN II-XII Intact, Normal Cognition, Normal Gait, Normal Reflexes, No Motor/Sensory Deficits Psychiatric: Normal Affect, Normal Mood Skin: Warm, Dry, Intact, Normal Color, No Rash, Other (No drainage that can be cultured at this time) Location, Skin: Head Associated features: Crusting Lymphatic: No Adenopathy Course - Vital Signs Last Recorded V/S: Last Vital Signs Temp 97.2 F 01/24/18 17:57 Pulse 81 01/24/18 17:57 Resp 16 01/24/18 17:57 BP 113/69 01/24/18 17:57 Pulse Ox 100 01/24/18 17:57 - Orders/Labs/Meds Labs: Laboratory Tests 01/24/18 01/24/18 Range/Units 20:05 20:05 WBC 11.2 H (5.0-10.0) 10^3/uL RBC 3.90 L (4.2-5.4) 10^6/uL Hgb 12.3 (12.0-16.0) g/dL Hct 35.5 L (37.0-47.0) % MCV 91.0 (80-100) fL MCH 31.5 (27.0-34.0) pg MCHC 34.6 (33.0-35.0) g/dL Plt Count 214 (150-450) 10^3/uL Neut % (Auto) 63.1 (42.2-75.2) % Lymph % (Auto) 26.7 (20.5-50.1) % [place] % (Auto) 6.7 (2-8) % Eos % (Auto) 3.3 H (1.0-3.0) % Baso % (Auto) 0.2 (0.0-1.0) % Sodium 134 L (135-145) mmol/L Potassium 3.4 L (3.6-5.0) mmol/L Chloride 101 (101-111) mmol/L Carbon Dioxide 26.0 (21.0-31.0) mmol/L Anion Gap 10.4 BUN 13 (7-18) mg/dL Creatinine 0.7 (0.6-1.3) mg/dL Est Cr Clr Drug Dosing 114.23 mL/min Estimated GFR (MDRD) > 60 BUN/Creatinine Ratio 18.57 Glucose 70 L (74-105) mg/dL Calcium 9.0 (8.4-10.2) mg/dl Total Bilirubin 0.4 (0.2-1.0) mg/dL AST 19 (10-42) IU/L ALT 20 (10-60) IU/L Alkaline Phosphatase 72 (42-121) IU/L Total Protein 6.5 L (6.7-8.2) g/dl Albumin 3.7 (3.2-5.5) g/dl Globulin 2.8 Albumin/Globulin Ratio 1.32 Meds: Medications Discontinued Medications Generic Name Dose Route Start Last Admin Trade Name Freq PRN Reason Stop Dose Admin Clindamycin HCl 300 mg 01/24/18 20:53 01/24/18 21:03 Cleocin PO 01/24/18 20:54 300 mg ONETIME ONE Administration Departure - Departure Time of Disposition: 20:55 Disposition: Home, Self-Care 01 Condition: Fair Clinical Impression: Abscess - Discharge Information Instructions: Skin Abscess, [id number] Forms: ED Department Discharge Additional Instructions: RX: Clindamycin Follow up with your primary care facility on Saturday Use topical antibiotic ointment around the area as tolerated Keep area clean and dry
[2018-01-24] MEDS: Clindamycin HCl 150 MG Cap PO ONE (21:03)
== END 2018-01-24 21:05 | disposition home or self-care (01) ==
LOC: DL.ED 17:55
DX: O99.711 Diseases of the skin and subcutaneous tissue complicating pregnancy, first trimester (principal); L02.811 Cutaneous abscess of head [any part, except face]; O99.331 Smoking (tobacco) complicating pregnancy, first trimester; F17.210 Nicotine dependence, cigarettes, uncomplicated; O99.281 Endocrine, nutritional and metabolic diseases complicating pregnancy, first trimester; E03.9 Hypothyroidism, unspecified; Z79.899 Other long term (current) drug therapy; Z88.8 Allergy status to other drugs, medicaments and biological substances; Z88.1 Allergy status to other antibiotic agents; Z3A.13 13 weeks gestation of pregnancy
CPT/HCPCS: 36415; 80053; 85025; 99283; A9270

== ENCOUNTER 2018-04-07 10:11 | Emergency (ER) | payer MEDICAID ==
[2018-04-07 10:27] VITALS: BP 103/55
--- NOTE | 2018-04-07 10:35 | EDM.PDOC ---
ED HPI GENERAL MEDICAL PROBLEM - General Chief Complaint: ENT Problem Stated Complaint: TOOTH PAIN Time Seen by Provider: 04/07/18 10:32 Source of Information: Reports: Patient, Old Records, RN, RN Notes Reviewed History Limitations: Reports: No Limitations - History of Present Illness INITIAL COMMENTS - FREE TEXT/NARRATIVE: 23 week female presents to ER with c/o "broken tooth" at right upper incisor x1 month with dental pain. Pt has not seen a dentist and has not been to clinic for this problem. Onset: Other (1 month) Duration: Constant Location: Reports: Other (dental) Quality: Reports: Ache, Throbbing Severity: Severe Improves with: Reports: None Worsens with: Reports: Eating Associated Symptoms: Reports: No Other Symptoms Right Upper Oral/Mouth Pain Score (Numeric/FACES): 8 - Related Data Allergies Allergy/AdvReac Type Severity Reaction Status Date / Time cephalexin [From Keflex] Allergy Anaphylactic Verified 11/26/17 19:50 Shock ibuprofen Allergy Anaphylactic Verified 11/26/17 19:50 Shock Home Meds: Home Meds Levothyroxine 88 mcg PO ACBREAKFAST 05/30/17 [History] Escitalopram [Lexapro] 1 tab PO DAILY 07/08/17 [History] Cyclobenzaprine [Flexeril] 10 mg PO TID PRN 11/26/17 [History] Mirtazapine 15 mg PO BEDTIME 11/26/17 [History] Past Medical History HEENT History: Reports: Impaired Vision, Other (See Below) (Hearing impaired, congenital B/L ear deformity) Other HEENT History: WEARS CORRECTIVE LENSES Cardiovascular History: Reports: None Respiratory History: Reports: Bronchitis, Recurrent Gastrointestinal History: Reports: None Genitourinary History: Reports: None 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: 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 13 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 Musculoskeletal History: Reports: Fracture Other Musculoskeletal History: FX RIGHT COLLAR BONE Neurological History: Reports: Migraines Psychiatric History: Reports: Anxiety, Depression, PTSD Other Psychiatric History: borderline personality disorder Endocrine/Metabolic History: Reports: Hypothyroidism Hematologic History: Reports: Anemia Immunologic History: Reports: None Oncologic (Cancer) History: Reports: None Dermatologic History: Reports: None - Infectious Disease History Infectious Disease History: Reports: Chicken Pox - Past Surgical History Head Surgeries/Procedures: Reports: None HEENT Surgical History: Reports: Other (See Below) (cochlear implant) Other HEENT Surgeries/Procedures: reconstructive ear surgery x12. BERNARD hines Cardiovascular Surgical History: Reports: None Respiratory Surgical History: Reports: None GI Surgical History: Reports: None Endocrine Surgical History: Reports: None Neurological Surgical History: Reports: None Musculoskeletal Surgical History: Reports: None Oncologic Surgical History: Reports: None Social & Family History - Family History Family Medical History: Noncontributory Cardiac: Reports: [place] Endocrine/Metabolic: Reports: Hypothyroidism Oncologic: Reports: Brain, Breast, Pancreatic - Tobacco Use Smoking Status *Q: Current Every Day Smoker Years of Tobacco use: 18 Packs/Tins Daily: 0.3 Used Tobacco, but Quit: No Second Hand Smoke Exposure: Yes - Caffeine Use Caffeine Use: Reports: Coffee, Energy Drinks, Soda, Tea - Recreational Drug Use Recreational Drug Use: No - Living Situation & Occupation Living situation: Reports: with Significant Other, with Family Occupation: Unemployed ED ROS ENT - Review of Systems Review Of Systems: ROS reveals no pertinent complaints other than HPI. ED EXAM, ENT - Physical Exam Exam: See Below Exam Limited By: No Limitations General Appearance: Alert, WD/WN, No Apparent Distress Eye Exam: Bilateral Eye: Normal Inspection Nose: Normal Inspection Mouth/Throat: Normal Lips, Normal Oropharynx, Dental Abcess (chronically decayed tooth #7 with caries and adjacent gum swelling without flucutance or drainage.), Dental Pain, Gum Swelling Head: Atraumatic, Normocephalic, Facial Tenderness (Rt maxillary face). No: Facial Swelling Neck: Normal Inspection, Supple, Non-Tender, Full Range of Motion. No: Lymphadenopathy (L), Lymphadenopathy (R) Respiratory/Chest: No Respiratory Distress Cardiovascular: Regular Rate, Rhythm Neurological: Alert, Oriented, Normal Cognition, Normal Gait, No Motor/Sensory Deficits Psychiatric: Normal Mood Skin: Warm, Dry, Intact, Normal Color, No Rash Course - Vital Signs Last Recorded V/S: Last Vital Signs Temp 36.9 C 04/07/18 10:26 Pulse 86 04/07/18 10:26 Resp 16 04/07/18 10:26 BP 103/55 L 04/07/18 10:26 Pulse Ox 99 04/07/18 10:26 Departure - Departure Time of Disposition: 10:46 Disposition: Home, Self-Care 01 Condition: Good Clinical Impression: Dental abscess, Dental caries - Discharge Information Instructions: Dental Abscess Forms: ED Department Discharge Additional Instructions: Rx: Amoxicillin 500mg Rx: Flagyl 500mg Rx: Viscous Lidocaine 2% Gel Follow up with dentist at first available appointment. Inform Dr. Contreras of your dental infection.
== END 2018-04-07 10:52 | disposition home or self-care (01) ==
LOC: DL.ED 10:11
DX: O09.512 Supervision of elderly primigravida, second trimester (principal); O99.612 Diseases of the digestive system complicating pregnancy, second trimester; K04.7 Periapical abscess without sinus; K03.81 Cracked tooth; K02.9 Dental caries, unspecified; O99.332 Smoking (tobacco) complicating pregnancy, second trimester; F17.210 Nicotine dependence, cigarettes, uncomplicated; O99.282 Endocrine, nutritional and metabolic diseases complicating pregnancy, second trimester; E03.9 Hypothyroidism, unspecified; O99.342 Other mental disorders complicating pregnancy, second trimester; F41.9 Anxiety disorder, unspecified; F32.9 Major depressive disorder, single episode, unspecified; Z3A.23 23 weeks gestation of pregnancy; Z88.1 Allergy status to other antibiotic agents; Z88.6 Allergy status to analgesic agent; Z79.899 Other long term (current) drug therapy
CPT/HCPCS: 99282

== ENCOUNTER 2018-04-13 20:42 | Emergency (ER) | payer MEDICAID ==
[2018-04-13 21:02] VITALS: BP 116/65
--- NOTE | 2018-04-13 21:26 | EDM.PDOC ---
ED HPI GENERAL MEDICAL PROBLEM - General Chief Complaint: ENT Problem Stated Complaint: SORE AND ITCHY [id number] [id number] Time Seen by Provider: 04/13/18 21:15 Source of Information: Reports: Patient History Limitations: Reports: No Limitations - History of Present Illness INITIAL COMMENTS - FREE TEXT/NARRATIVE: This 33 yo female reports to the ED with a cough over the past couple of days. The patient reports she has been on Amoxicillin for dental pain and abscess since 04/09/18, but started to develop this cough. The patient is unsure what she can take due to the . Onset Date: 04/11/18 Duration: Constant, Getting Worse Location: Reports: Neck Quality: Reports: Ache, Dull Severity: Moderate Improves with: Reports: None Worsens with: Reports: None Associated Symptoms: Reports: Cough - Related Data Allergies Allergy/AdvReac Type Severity Reaction Status Date / Time bee venom protein (honey bee) Allergy Hives Verified 04/13/18 20:57 cephalexin [From Keflex] Allergy Anaphylactic Verified 04/13/18 20:57 Shock ibuprofen Allergy Anaphylactic Verified 04/13/18 20:57 Shock Home Meds: Home Meds Levothyroxine 88 mcg PO ACBREAKFAST 05/30/17 [History] Escitalopram [Lexapro] 1 tab PO DAILY 07/08/17 [History] Mirtazapine 15 mg PO BEDTIME 11/26/17 [History] Amoxicillin 500 mg PO TID 04/13/18 [History] hydrOXYzine Pamoate [Hydroxyzine Pamoate] 25 mg PO TID PRN 04/13/18 [History] metroNIDAZOLE [Metronidazole] 1 tab PO TID 04/13/18 [History] Past Medical History HEENT History: Reports: Impaired Vision, Other (See Below) Other HEENT History: WEARS CORRECTIVE LENSES Cardiovascular History: Reports: None Respiratory History: Reports: Bronchitis, Recurrent Gastrointestinal History: Reports: GERD Genitourinary History: Reports: None CLINIC PHYSICIAN History: Reports: Other OB/BYN History: states 24 weeks Musculoskeletal History: Reports: Fracture Other Musculoskeletal History: FX RIGHT COLLAR BONE Neurological History: Reports: Migraines Psychiatric History: Reports: Anxiety, Depression, PTSD Other Psychiatric History: borderline personality disorder Endocrine/Metabolic History: Reports: Hypothyroidism Hematologic History: Reports: Anemia Immunologic History: Reports: None Oncologic (Cancer) History: Reports: None Dermatologic History: Reports: None - Infectious Disease History Infectious Disease History: Reports: Chicken Pox - Past Surgical History Head Surgeries/Procedures: Reports: None HEENT Surgical History: Reports: Other (See Below) Other HEENT Surgeries/Procedures: reconstructive ear surgery x12. BAHA surgery Cardiovascular Surgical History: Reports: None Respiratory Surgical History: Reports: None GI Surgical History: Reports: None Endocrine Surgical History: Reports: None Neurological Surgical History: Reports: None Musculoskeletal Surgical History: Reports: None Oncologic Surgical History: Reports: None Social & Family History - Family History Family Medical History: Noncontributory Cardiac: Reports: CT Endocrine/Metabolic: Reports: Hypothyroidism Oncologic: Reports: Brain, Breast, Pancreatic - Tobacco Use Smoking Status *Q: Current Every Day Smoker Years of Tobacco use: 18 Packs/Tins Daily: 0.3 Used Tobacco, but Quit: No Second Hand Smoke Exposure: Yes - Caffeine Use Caffeine Use: Reports: Coffee, Energy Drinks, Soda - Recreational Drug Use Recreational Drug Use: No - Living Situation & Occupation Living situation: Reports: with Significant Other, with Family Occupation: Unemployed ED ROS ENT - Review of Systems Review Of Systems: ROS reveals no pertinent complaints other than HPI. 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.) Nose: Normal Inspection Mouth/Throat: Normal Gums, Normal Lips, Normal Teeth, Pharyngeal Erythema Head: Atraumatic, Normocephalic Neck: Normal Inspection, Supple, Non-Tender, Full Range of Motion Respiratory/Chest: No Respiratory Distress, Lungs Clear, Normal Breath Sounds, No Accessory Muscle Use, Chest Non-Tender Cardiovascular: Normal Peripheral Pulses, Regular Rate, Rhythm, No Edema, No Gallop, No JVD, No Murmur, No Rub GI/Abdominal: Normal Bowel Sounds, Soft, Non-Tender, No Organomegaly, No Distention, No Abnormal Bruit, No Mass (Female) Exam: Deferred Rectal (Female) Exam: Deferred Back: Normal Inspection, Full Range of Motion Extremities: Normal Inspection, Normal Range of Motion, Non-Tender, No Pedal Edema, Normal Capillary Refill Neurological: Alert, Oriented, CN II-XII Intact, Normal Cognition, Normal Gait, Normal Reflexes, No Motor/Sensory Deficits Psychiatric: Normal Affect, Normal Mood Skin: Warm, Dry, Intact, Normal Color, No Rash Lymphatic: No Adenopathy Course - Vital Signs Last Recorded V/S: Last Vital Signs Temp 37.3 C 04/13/18 21:01 Pulse 111 H 04/13/18 21:01 Resp 18 04/13/18 21:01 BP 116/65 04/13/18 21: Pulse Ox 96 04/13/18 21:01 Departure - Departure Time of Disposition: 21:23 Disposition: Home, Self-Care 01 Condition: Fair Clinical Impression: Cough in adult - Discharge Information Instructions: Cough, Adult, [id number] Referrals: Liset Contreras MD [Primary Care Provider] - Forms: ED Department Discharge Care Plan Goals: The patient was advised of the examination results during the visit. The patient was encouraged to continue taking the Amoxicillin as prescribed for dental abscess. The patient was also encouraged to shredder picker some Robitussin ( Guaifenesin) for temporary symptom relief. Unfortunately, due to the , the other prescription cough medications are not appropriate. If the patient has any additional symptoms or concerns, the patient should follow-up with her primary care facility or return to the emergency department.
== END 2018-04-13 21:32 | disposition home or self-care (01) ==
LOC: DL.ED 20:42
DX: R05 Cough (principal); E03.9 Hypothyroidism, unspecified; F17.210 Nicotine dependence, cigarettes, uncomplicated; Z91.030 Bee allergy status; Z88.1 Allergy status to other antibiotic agents; Z88.6 Allergy status to analgesic agent; Z79.899 Other long term (current) drug therapy
CPT/HCPCS: 99282

== ENCOUNTER 2018-07-26 10:48 | Inpatient (IN) | payer MEDICAID ==
[2018-07-26] MEDS: Acetaminophen 325 MG Tab PO PRN (13:50)
[2018-07-26] MEDS: hydrOXYzine HCl 25 MG Tab PO PRN (13:51)
[2018-07-26] MEDS: Lactated Ringers 1,000 ML IV SCH ×3 (14:45→19:15)
[2018-07-26] MEDS ORDERED: Nalbuphine 10 MG/1 ML Vial IM ONE (14:52)
[2018-07-26] MEDS ORDERED: Penicillin G Potassium 5 MILLUNITS in Sodium Chloride 0.9% 100 ML IV ONE (14:53)
[2018-07-26] MEDS ORDERED: Lidocaine 1% 30 ML SDV INJECT PRN (15:10)
[2018-07-26] MEDS ORDERED: Misoprostol 400 MCG (4 X 100 MCG TAB) RECTAL PRN (15:10)
[2018-07-26] MEDS ORDERED: Sodium Chloride 0.9% 10 ML Syringe FLUSH PRN (15:10)
[2018-07-26] MEDS ORDERED: Carboprost Tromethamine 250 MCG/1 ML Amp IM PRN (15:10)
[2018-07-26] MEDS ORDERED: Methylergonovine 0.2 MG/1 ML Amp IM PRN (15:10)
[2018-07-26] MEDS ORDERED: Ondansetron 4 MG/2 ML SDV IV PRN (15:10)
[2018-07-26] MEDS ORDERED: Tranexamic Acid 1,000 MG in Sodium Chloride 0.9% 100 ML IV PRN (15:10)
[2018-07-26] MEDS ORDERED: Lactated Ringers 500 ML IV ONE (15:10)
--- NOTE | 2018-07-26 15:14 | PCM.LDHP ---
L&D History of Present Illness - General Date of Service: 07/26/18 Admit Problem/Dx: Patient Status Order with Admit Dx/Problem 07/26/18 11:38 Patient Status [ADT] Routine 07/26/18 15:10 Patient Status [ADT] Routine Admission Diagnosis/Problem Admission Diagnosis/Problem Vaginal bleeding Source of Information: Patient History Limitations: Reports: No Limitations - History of Present Illness Introduction:: 33-year-old at 38w3d presents to L&D with vaginal bleeding and increased cramping. Patient had increased cramping for 3-4 hours prior to arrival on L& D. About 30 minutes prior to arrival, patient noticed bright red blood on some toilet paper after urinating. The bleeding has continued for the last 30 minutes, soaking through a light pad. Baby has been active. No recent trauma. No leaking of fluid. Pain Score: 8 Associated Symptoms: Reports: vaginal bleeding - Related Data Allergies/Adverse Reactions: Allergies Allergy/AdvReac Type Severity Reaction Status Date / Time bee venom protein (honey bee) Allergy Hives Verified 06/27/18 23:12 cephalexin [From Keflex] Allergy Anaphylactic Verified 06/27/18 23:12 Shock ibuprofen Allergy Anaphylactic Verified 06/27/18 23:12 Shock Home Medications: Home Meds Levothyroxine 88 mcg PO ACBREAKFAST 05/30/17 [History] Escitalopram [Lexapro] 1 tab PO DAILY 07/08/17 [History] Mirtazapine 15 mg PO BEDTIME 11/26/17 [History] hydrOXYzine pamoate [Hydroxyzine Pamoate] 25 mg PO TID PRN 04/13/18 [History] Acetaminophen [Tylenol] 650 mg PO Q6H PRN tablet 07/28/18 [Rx] Docusate Sodium [Colace] 100 mg PO BID PRN cap 07/28/18 [Rx] Past Medical History HEENT History: Reports: Impaired Vision, Other (See Below) Other HEENT History: WEARS CORRECTIVE LENSES Cardiovascular History: Reports: None Respiratory History: Reports: Bronchitis, Recurrent Gastrointestinal History: Reports: None Genitourinary History: Reports: None 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: Other OB/BYN History: states 13 weeks Musculoskeletal History: Reports: Fracture Other Musculoskeletal History: FX RIGHT COLLAR BONE Neurological History: Reports: Migraines Psychiatric History: Reports: Anxiety, Depression, PTSD Other Psychiatric History: borderline personality disorder Endocrine/Metabolic History: Reports: Hypothyroidism Hematologic History: Reports: Anemia Immunologic History: Reports: None Oncologic (Cancer) History: Reports: None Dermatologic History: Reports: None - Infectious Disease History Infectious Disease History: Reports: None - Past Surgical History Head Surgeries/Procedures: Reports: None HEENT Surgical History: Reports: Other (See Below) Other HEENT Surgeries/Procedures: Congenital hearing loss, congenital aural atresia, microtia, external ear surgeries, BAHA Cardiovascular Surgical History: Reports: None Respiratory Surgical History: Reports: None Endocrine Surgical History: Reports: None Neurological Surgical History: Reports: None Musculoskeletal Surgical History: Reports: None Oncologic Surgical History: Reports: None Social & Family History - Family History Family Medical History: Noncontributory Cardiac: Reports: NM Endocrine/Metabolic: Reports: Hypothyroidism Oncologic: Reports: Brain, Breast, Pancreatic - Caffeine Use Caffeine Use: Reports: Coffee, Soda - Living Situation & Occupation Living situation: Reports: with Significant Other, with Family Occupation: Unemployed H&P Review of Systems - Review of Systems: Review Of Systems: See Below General: Reports: No Symptoms HEENT: Reports: No Symptoms Pulmonary: Reports: No Symptoms Cardiovascular: Reports: No Symptoms Gastrointestinal: Reports: Other (cramping) Genitourinary: Reports: Other (Vaginal bleeding) Musculoskeletal: Reports: No Symptoms Skin: Reports: No Symptoms L&D Exam - Exam Exam: See Below - OB Specific Movement: Active Heart Tones: Present Heart Tones per Min: 135 Heart Rate (FHR) Variability: Moderate (6-25 bmp) Presentation: Vertex - Boogie Score Boogie Score Cervix Position: Midposition Boogie Score Consistency: Soft Boogie Score Effacement: 51-70% Boogie Score Dilation: 3-4 cm Boogie Score 's Station: -1 ,0 Boogie Score Total: 9 - Exam General: Alert, Oriented HEENT: Conjunctiva Clear, Mucosa Moist & [place] Lungs: Clear to Auscultation, Normal Respiratory Effort Cardiovascular: Regular Rate, Regular Rhythm. No: Systolic Murmur, Diastolic Murmur GI/Abdominal Exam: Soft, Non-Tender Genitourinary: Vaginal bleeding (Speculum exam revealed blood in the vaginal vault originating from the cervix; No active bleeding noted). No: Cervix motion tenderness Extremities: Normal Inspection, No Pedal Edema Skin: Warm, Dry, Intact - Patient Data Result Diagrams: 07/26/18 15:15 - Problem List (1) care in third trimester SNOMED Code(s): 425270166, 37569928, 62139033, 381925960, 523295383 ICD Code: Z34.93 - ENCNTR FOR SUPRVSN OF NORMAL PREG, UNSP, THIRD TRIMESTER Status: Acute (2) Vaginal bleeding during SNOMED Code(s): 60110379243301460 ICD Code: O46.90 - ANTEPARTUM HEMORRHAGE, UNSPECIFIED, UNSPECIFIED TRIMESTER Status: Acute (3) Thyroid disease during in third trimester SNOMED Code(s): 756065736 ICD Code: O99.283 - ENDO, NUTRITIONAL AND METAB DISEASES COMP PREG, THIRD TRI ; E07.9 - DISORDER OF THYROID, UNSPECIFIED Status: Acute (4) GBS (group B Streptococcus carrier), +RV culture, currently SNOMED Code(s): 3430518366854, 439376456, 4663572079410 ICD Code: O99.820 - STREPTOCOCCUS B CARRIER STATE COMPLICATING Status: Acute Problem List Initiated/Reviewed/Updated: Yes Orders Last 24hrs: Active Orders 24 hr Category Date Time Status Patient Status [ADT] Routine ADT 07/26/18 11:38 Active Patient Status [ADT] Routine ADT 07/26/18 15:10 Ordered Communication Order [RC] ASDIRECTED Care 07/26/18 15:10 Ordered Communication Order [RC] ROUTINE Care 07/26/18 11:40 Active Heart Tones [RC] PER UNIT ROUTINE Care 07/26/18 15:10 Ordered Monitoring [RC] CONTINUOUS Care 07/26/18 11:39 Active Non Stress Test [RC] PER UNIT ROUTINE Care 07/26/18 15:10 Ordered Notify Provider Vital Signs OB [RC] ASDIRECTED Care 07/26/18 15:10 Ordered Notify Provider [RC] PRN Care 07/26/18 15:10 Ordered Pump Management, Intrathecal [RC] ASDIRECTED Care 07/26/18 15:10 Ordered Up ad Kianna [RC] ASDIRECTED Care 07/26/18 11:39 Active Vital Signs [RC] PER UNIT ROUTINE Care 07/26/18 11:38 Active Vital Signs [RC] PER UNIT ROUTINE Care 07/26/18 15:10 Ordered Clear Liquid Diet [DIET] Diet 07/26/18 Dinner Ordered CBC W/O DIFF,HEMOGRAM [HEME] Routine Lab 07/26/18 14:57 Ordered Acetaminophen [Tylenol] Med 07/26/18 11:42 Active 650 mg PO Q6H PRN Carboprost Tromethamine [Hemabate DS] Med 07/26/18 15:10 Ordered 250 mcg IM ASDIRECTED PRN Lactated Ringers @ 125 MLS/HR(1000ml) Med 07/26/18 15:15 Ordered Lactated Ringers [Ringers, Lactated] 1,000 ml IV ASDIRECTED Lactated Ringers [Ringers, Lactated] 500 ml Med 07/26/18 15:10 Ordered IV .BOLUS Lidocaine 1% [Xylocaine-MPF 1%] Med 07/26/18 15:10 Ordered 10 ml INJECT ASDIRECTED PRN Methylergonovine [Methergine] Med 07/26/18 15:10 Ordered 0.2 mg IM ASDIRECTED PRN Ondansetron [Zofran] Med 07/26/18 15:10 Ordered 4 mg IV Q4H PRN Oxytocin 30 Units in NS @ 2 MUNITS/MIN(500ml) Med 07/26/18 15:15 Ordered Oxytocin/Normal Saline [Pitocin in NS 30 UNIT/500 ML] 30 unit in 500 ml IV TITRATE Penicillin G Potassium [Pfizerpen] 5 millunits Med 07/26/18 14:53 Ordered Sodium Chloride 0.9% [Normal Saline] 100 ml IV ONETIME Sodium Chloride 0.9% [Saline Flush] Med 07/26/18 15:10 Ordered 10 ml FLUSH ASDIRECTED PRN Tranexamic Acid [Cyklokapron] 1,000 mg Med 07/26/18 15:10 Ordered Sodium Chloride 0.9% [Normal Saline] 100 ml IV ONETIME hydrOXYzine HCl [Atarax] Med 07/26/18 11:42 Active 25 mg PO Q8HR PRN miSOPROStol [Cytotec] Med 07/26/18 15:10 Ordered 800 mcg RECTAL ASDIRECTED PRN Saline Lock Insert [OM.PC] Routine Oth 07/26/18 15:10 Ordered Resuscitation Status Routine Resus Stat 07/26/18 11:38 Ordered Medication Orders Acetaminophen (Tylenol) 650 mg PO Q6H PRN PRN Reason: Pain Last Admin: 07/26/18 13:50 Dose: 650 mg Hydroxyzine HCl (Atarax) 25 mg PO Q8HR PRN PRN Reason: Anxiety Last Admin: 07/26/18 13:51 Dose: 25 mg Penicillin G Potassium 5 (millunits/ Sodium Chloride) 100 mls @ 200 mls/hr IV ONETIME ONE Stop: 07/26/18 15:22 Assessment/Plan Comment:: 33-year-old at 38w3d with vaginal bleeding and possible labor. 1. Admit for observation. 2. Continuous monitoring. 3. Will obtain ultrasound to assess placenta. 4. Monitor vaginal bleeding. 5. Repeat cervical exam in 2-3 hours. Further management will be determined at that time. Liset Contreras MD ADDENDUM: Three hours after admission, bleeding has stopped. Patient is penny every 2-3 minutes. Cervical dilation has progressed to 4 cm dilation. Patient is in early active labor. 1. Admit to L&D 2. Initiate routine intrapartum orders 3. PCN for GBS positive status 4. AROM when able 5. Expectant management. Anticipate Liset Contreras MD
[2018-07-26] MEDS ORDERED: Oxytocin/Normal Saline 30 UNIT/500 ML BAG IV SCH ×2 (15:15→20:35)
[2018-07-26] MEDS ORDERED: fentaNYL 100 MCG/2 ML SDV ONE (18:53)
[2018-07-26] MEDS ORDERED: Bupivacaine 0.75%/D5W 2 ML Amp ONE (18:53)
[2018-07-26] MEDS ORDERED: EPINEPHrine 1 MG/ML SDV ONE (18:54)
--- NOTE | 2018-07-26 19:38 | PCM.PRNOTE ---
- Free Text/Narrative Note: Requested to provide analgesia to full term patient in severe pain. Upon entering the room, patient is supine in bed complaining of severe abdominal/ pelvic pain and discomfort. Procedure was discussed with patient including adverse outcomes and expectations. Pt consented to analgesia, SAB/IT. Pt placed into a sitting position. Landmarks for SAB/IT were identified and marked. Hands were washed and appropriate PPE was applied. Back was prepped with betadine x3. A sterile, transparent, fenestrated drape was applied. Excess betadine was removed. Using 3 mL of a 1% lidocaine solution, a skin wheel was placed at the L2/L3 interspace. A 24 ga (4 inch) Pencan spinal needle was inserted until positive paresthesia to right leg. Needle repositioned medially until positive for CSF. Negative for heme and paresthesia quickly disappeared. Injected fentanyl 30 mcg, sufentanil 25 mcg, and 10.5 mg of a 0.75% bupivacaine solution with an epi wash. Pt was placed left lateral position for approximately 20 minutes. There were zero complications or adverse outcomes. Will continue to monitor. Procedure Date & Time: 07/26/2018 [id number]
[2018-07-26] MEDS: Penicillin G Potassium 2.5 MILLUNITS in Sodium Chloride 0.9% 100 ML IV SCH (20:02)
--- NOTE | 2018-07-26 22:30 | PCM.DEL ---
L & D Note - General Info Date of Service: 07/26/18 Mother's Due Date: 08/06/18 - Delivery Note Labor: Spontaneous, Augmented by ARM Delivery Outcome: Livebirth Delivery Method: Spontaneous Vaginal Delivery-Single Presentation: Vertex Nuchal Cord: None Anesthesia Type: Intrathecal Amniotic Fluid Description: Clear Episiotomy Type: None Laceration: 1st Degree, Labial (Left) Suture type: Vicryl Suture size: 4-0 Placenta: Intact, Spontaneous Cord: 3 Vessels Estimated Blood Loss: 225 Resuscitation Needed: Yes [place]: Suctioned, Bulb Syringe, Stimulated, Warmed, [place] Used Score 1 min: 6 Score 5 min: 8 Delivery Comments (Free Text/Narrative):: 33-year-old at 38w3d gestation initially presented with vaginal bleeding. After observation for 3 hours, the vaginal bleeding had stopped. However, at this time, patient was noted to be in active labor. Labor initially progressed slower than expected. AROM was performed for clear fluid for augmentation of labor. Pitocin was also made for augmentation of labor. Patient received an intrathecal for pain control. Patient progressed to complete dilation. She delivered a viable female with Apgars of 6 and 8 at one and 5 minutes respectively after 2 pushes. The baby was placed on the mother's abdomen and was briefly taken to the warmer for stimulation. The placenta delivered spontaneously approximately 5 minutes later. Bleeding was noted to be appropriate. A left labial laceration was noted and was repaired with 4-0 Vicryl suture. Perineum was noted to be intact. Bleeding was again assessed and was noted to be appropriate. Patient tolerated the procedure and there were no immediate consultations. - General Info Date of Service: 07/26/18 - Patient Data Vitals - Most Recent: Last Vital Signs Temp 36.8 C 07/26/18 17:00 Pulse 47 L 07/26/18 18:30 Resp 16 07/26/18 18:30 BP 112/59 L 07/26/18 18:30 Pulse Ox Weight - Most Recent: 200 kg I&O - Last 24 Hours: Intake & Output 07/26/18 07/26/18 07/26/18 06:59 14:59 22:59 Intake Total 1000 Output Total 950 Balance 50 Lab Results Last 24 Hours: Laboratory Results - last 24 hr 07/26/18 Range/Units 15:15 WBC 16.8 H (5.0-10.0) 10^3/uL RBC 4.17 L (4.2-5.4) 10^6/uL Hgb 12.9 (12.0-16.0) g/dL Hct 37.5 (37.0-47.0) % MCV 89.9 (80-100) fL MCH 30.9 (27.0-34.0) pg MCHC 34.4 (33.0-35.0) g/dL Plt Count 203 (150-450) 10^3/uL Med Orders - Current: Current Medications Acetaminophen (Tylenol) 650 mg PO Q6H PRN PRN Reason: Pain Last Admin: 07/26/18 13:50 Dose: 650 mg Carboprost Tromethamine (Hemabate Ds) 250 mcg IM ASDIRECTED PRN PRN Reason: HEMORRHAGE Hydroxyzine HCl (Atarax) 25 mg PO Q8HR PRN PRN Reason: Anxiety Last Admin: 07/26/18 13:51 Dose: 25 mg Tranexamic Acid 1,000 mg/ (Sodium Chloride) 110 mls @ 660 mls/hr IV ONETIME PRN PRN Reason: Bleeding Lactated Ringer's (Ringers, Lactated) 1,000 mls @ 125 mls/hr IV ASDIRECTED SAVANNAH Last Admin: 07/26/18 19:15 Dose: 125 mls/hr Oxytocin/Sodium Chloride (Pitocin In Ns 30 Unit/500 Ml) 30 unit in 500 mls @ 2 mls/hr IV TITRATE SAVANNAH; Protocol Last Titration: 07/26/18 21:32 Dose: 4 mls/hr Penicillin G Potassium 2.5 (millunits/ Sodium Chloride) 100 mls @ 200 mls/hr IV Q4H SAVANNAH Last Admin: 07/26/18 20:02 Dose: 200 mls/hr Oxytocin/Sodium Chloride (Pitocin In Ns 30 Unit/500 Ml) 30 unit in 500 mls @ 2 mls/hr IV TITRATE SAVANNAH; Protocol Lidocaine HCl (Xylocaine-Mpf 1%) 10 ml INJECT ASDIRECTED PRN PRN Reason: Perineal Repair Methylergonovine Maleate (Methergine) 0.2 mg IM ASDIRECTED PRN PRN Reason: Hemorrhage Misoprostol (Cytotec) 800 mcg RECTAL ASDIRECTED PRN PRN Reason: Hemorrhage Ondansetron HCl (Zofran) 4 mg IV Q4H PRN PRN Reason: Nausea/Vomiting Last Admin: 07/26/18 18:44 Dose: 4 mg Sodium Chloride (Saline Flush) 10 ml FLUSH ASDIRECTED PRN PRN Reason: Keep Vein Open Discontinued Medications Bupivacaine HCl/Dextrose (Marcaine 0.75% Spinal) Confirm Administered Dose 2 ml .ROUTE .STK-MED ONE Stop: 07/26/18 18:54 Last Admin: 07/26/18 21:29 Dose: Not Given Epinephrine HCl (Adrenalin) Confirm Administered Dose 1 mg .ROUTE .STK-MED ONE Stop: 07/26/18 18:55 Last Admin: 07/26/18 21:29 Dose: Not Given Fentanyl (Sublimaze) Confirm Administered Dose 100 mcg .ROUTE .STK-MED ONE Stop: 07/26/18 18:54 Last Admin: 07/26/18 21:29 Dose: Not Given Penicillin G Potassium 5 (millunits/ Sodium Chloride) 100 mls @ 200 mls/hr IV ONETIME ONE Stop: 07/26/18 15:22 Last Admin: 07/26/18 15:38 Dose: 200 mls/hr Lactated Ringer's (Ringers, Lactated) 500 mls @ 999 mls/hr IV .BOLUS ONE Stop: 07/26/18 15:40 Nalbuphine HCl (Nubain) 20 mg IM ONETIME ONE Stop: 07/26/18 14:53 Last Admin: 07/26/18 15:40 Dose: 20 mg Sufentanil Citrate (Sufenta) Confirm Administered Dose 50 mcg .ROUTE .STK-MED ONE Stop: 07/26/18 18:55 Last Admin: 07/26/18 21:29 Dose: Not Given - Problem List & Annotations (1) (normal spontaneous vaginal delivery) SNOMED Code(s): 16304657 Code(s): O80 - ENCOUNTER FOR FULL-TERM UNCOMPLICATED DELIVERY Status: Acute (2) Laceration of labia majora SNOMED Code(s): 907556724 Code(s): S31.41XA - LACERATION W/O FOREIGN BODY OF VAGINA AND VULVA, INIT ENCNTR Status: Acute Annotation/Comment:: left (3) GBS (group B Streptococcus carrier), +RV culture, currently SNOMED Code(s): 2227800531221, 573805305, 7786999152872 Code(s): O99.820 - STREPTOCOCCUS B CARRIER STATE COMPLICATING Status: Acute (4) Thyroid disease during in third trimester SNOMED Code(s): 692792845 Code(s): O99.283 - ENDO, NUTRITIONAL AND METAB DISEASES COMP PREG, THIRD TRI ; E07.9 - DISORDER OF THYROID, UNSPECIFIED Status: Acute (5) Vaginal bleeding during SNOMED Code(s): 51096670901130467 Code(s): O46.90 - ANTEPARTUM HEMORRHAGE, UNSPECIFIED, UNSPECIFIED TRIMESTER Status: Acute - Problem List Review Problem List Initiated/Reviewed/Updated: Yes - My Orders Last 24 Hours: My Active Orders 07/26/18 11:38 Patient Status [ADT] Routine Vital Signs [RC] PER UNIT ROUTINE Resuscitation Status Routine 07/26/18 11:39 Up ad Kianna [RC] ASDIRECTED 07/26/18 11:40 Communication Order [RC] ROUTINE 07/26/18 11:42 Acetaminophen [Tylenol] 650 mg PO Q6H PRN hydrOXYzine HCl [Atarax] 25 mg PO Q8HR PRN 07/26/18 15:10 Patient Status [ADT] Routine Communication Order [RC] ASDIRECTED Notify Provider Vital Signs OB [RC] ASDIRECTED Notify Provider [RC] PRN Vital Signs [RC] PER UNIT ROUTINE Carboprost Tromethamine [Hemabate DS] 250 mcg IM ASDIRECTED PRN Lidocaine 1% [Xylocaine-MPF 1%] 10 ml INJECT ASDIRECTED PRN Methylergonovine [Methergine] 0.2 mg IM ASDIRECTED PRN Ondansetron [Zofran] 4 mg IV Q4H PRN Sodium Chloride 0.9% [Saline Flush] 10 ml FLUSH ASDIRECTED PRN Tranexamic Acid [Cyklokapron] 1,000 mg Sodium Chloride 0.9% [Normal Saline] 100 ml IV ONETIME miSOPROStol [Cytotec] 800 mcg RECTAL ASDIRECTED PRN Saline Lock Insert [OM.PC] Routine 07/26/18 15:15 Lactated Ringers [Ringers, Lactated] 1,000 ml IV ASDIRECTED Oxytocin/Normal Saline [Pitocin in NS 30 UNIT/500 ML] 30 unit in 500 ml IV TITRATE 07/26/18 20:00 Penicillin G Potassium [Pfizerpen] 2.5 millunits Sodium Chloride 0.9% [Normal Saline] 100 ml IV Q4H 07/26/18 20:35 Oxytocin/Normal Saline [Pitocin in NS 30 UNIT/500 ML] 30 unit in 500 ml IV TITRATE 07/26/18 Dinner Clear Liquid Diet [DIET] - Assessment Assessment:: 33-year-old now status post at 38w3d - Plan Plan:: 1. Initiate routine cares. 2. Mother plans to breast-feed. 3. Closely monitor bleeding 4. Anticipate discharge 07/28/2018 Liset Contreras MD
[2018-07-26] MEDS ORDERED: Ibuprofen 800 MG Tab PO PRN (22:32)
[2018-07-26] MEDS ORDERED: Benzocaine/Menthol 20%-0.5% Spray 56 GM Canister TOP PRN (22:32)
[2018-07-26] MEDS ORDERED: Oxytocin 10 Units/1 ML SDV IM PRN (22:32)
[2018-07-26] MEDS ORDERED: Simethicone 80 MG Tab.Chew PO PRN (22:32)
[2018-07-27] MEDS: Acetaminophen 325 MG Tab PO PRN ×4 (01:52→22:00)
[2018-07-27] MEDS: Penicillin G Potassium 2.5 MILLUNITS in Sodium Chloride 0.9% 100 ML IV SCH (02:14)
[2018-07-27] MEDS: Docusate Sodium 100 MG Cap PO PRN ×2 (08:24→22:00)
[2018-07-27] MEDS: Prenatal Multivitamin with Calcium/Folic Acid/Iron Tab PO SCH (08:24)
--- NOTE | 2018-07-27 10:14 | PCM.PNPP ---
- General Info Date of Service: 07/27/18 Subjective Update: Patient is doing well. She is ambulating without difficulty area she is tolerating a general diet. No dizziness or lightheadedness. Bleeding is slowing down. She is urinating without difficulty. She has passed gas but has not had a bowel movement. Patient is breast-feeding. This is going fairly well. She is supplementing some due to baby being small for gestational age. Baby is latching well. No concerns per patient or per nursing. Functional Status: Reports: Pain Controlled, Tolerating Diet, Ambulating, Urinating - Review of Systems General: Reports: No Symptoms HEENT: Reports: No Symptoms Pulmonary: Reports: No Symptoms Cardiovascular: Reports: No Symptoms Gastrointestinal: Reports: No Symptoms Genitourinary: Reports: No Symptoms Musculoskeletal: Reports: No Symptoms - Patient Data Vital Signs - Most Recent: Last Vital Signs Temp 36.3 C 07/26/18 21:31 Pulse 67 07/27/18 00:00 Resp 16 07/27/18 00:00 BP 118/74 07/27/18 00:00 Pulse Ox 95 07/26/18 21:57 Weight - Most Recent: 200 kg I&O - Last 24 Hours: Intake & Output 07/26/18 07/27/18 07/27/18 22:59 06:59 14:59 Intake Total 1100 900 Output Total 1350 950 Balance -250 -50 Lab Results - Last 24 Hours: Laboratory Results - last 24 hr 07/26/18 Range/Units 15:15 WBC 16.8 H (5.0-10.0) 10^3/uL RBC 4.17 L (4.2-5.4) 10^6/uL Hgb 12.9 (12.0-16.0) g/dL Hct 37.5 (37.0-47.0) % MCV 89.9 (80-100) fL MCH 30.9 (27.0-34.0) pg MCHC 34.4 (33.0-35.0) g/dL Plt Count 203 (150-450) 10^3/uL Med Orders - Current: Current Medications Acetaminophen (Tylenol) 650 mg PO Q6H PRN PRN Reason: Pain Last Admin: 07/27/18 08:43 Dose: 650 mg Benzocaine/Menthol (Dermoplast Pain Relief [place]) 0 gm TOP Q4H PRN PRN Reason: Perineal comfort measures Last Admin: 07/27/18 01:53 Dose: 1 spray Docusate Sodium (Colace) 100 mg PO BID PRN PRN Reason: Constipation Last Admin: 07/27/18 08:24 Dose: 100 mg Hydroxyzine HCl (Atarax) 25 mg PO Q8HR PRN PRN Reason: Anxiety Last Admin: 07/26/18 13:51 Dose: 25 mg Lactated Ringer's (Ringers, Lactated) 1,000 mls @ 125 mls/hr IV ASDIRECTED [facility] Last Admin: 07/26/18 19:15 Dose: 125 mls/hr Ondansetron HCl (Zofran) 4 mg IV Q4H PRN PRN Reason: Nausea/Vomiting Last Admin: 07/26/18 18:44 Dose: 4 mg Prenat Multivit/Oncology Rep/Iron/Folic Ac ( Plus Iron) 1 each PO DAILY [facility] Last Admin: 07/27/18 08:24 Dose: 1 each Simethicone (Simethicone) 80 mg PO Q4H PRN PRN Reason: Gas Sodium Chloride (Saline Flush) 10 ml FLUSH ASDIRECTED PRN PRN Reason: Keep Vein Open Discontinued Medications Bupivacaine HCl/Dextrose (Marcaine 0.75% Spinal) Confirm Administered Dose 2 ml .ROUTE .STK-MED ONE Stop: 07/26/18 18:54 Last Admin: 07/26/18 21:29 Dose: Not Given Carboprost Tromethamine (Hemabate Ds) 250 mcg IM ASDIRECTED PRN PRN Reason: HEMORRHAGE Epinephrine HCl (Adrenalin) Confirm Administered Dose 1 mg .ROUTE .STK-MED ONE Stop: 07/26/18 18:55 Last Admin: 07/26/18 21:29 Dose: Not Given Fentanyl (Sublimaze) Confirm Administered Dose 100 mcg .ROUTE .STK-MED ONE Stop: 07/26/18 18:54 Last Admin: 07/26/18 21:29 Dose: Not Given Penicillin G Potassium 5 (millunits/ Sodium Chloride) 100 mls @ 200 mls/hr IV ONETIME ONE Stop: 07/26/18 15:22 Last Admin: 07/26/18 15:38 Dose: 200 mls/hr Lactated Ringer's (Ringers, Lactated) 500 mls @ 999 mls/hr IV .BOLUS ONE Stop: 07/26/18 15:40 Last Admin: 07/27/18 02:14 Dose: Not Given Tranexamic Acid 1,000 mg/ (Sodium Chloride) 110 mls @ 660 mls/hr IV ONETIME PRN PRN Reason: Bleeding Oxytocin/Sodium Chloride (Pitocin In Ns 30 Unit/500 Ml) 30 unit in 500 mls @ 2 mls/hr IV TITRATE [facility]; Protocol Last Titration: 07/27/18 01:14 Dose: 0 mls/hr Penicillin G Potassium 2.5 (millunits/ Sodium Chloride) 100 mls @ 200 mls/hr IV Q4H [facility] Last Admin: 07/27/18 02:14 Dose: Not Given Oxytocin/Sodium Chloride (Pitocin In Ns 30 Unit/500 Ml) 30 unit in 500 mls @ 2 mls/hr IV TITRATE [facility]; Protocol Ibuprofen (Motrin) 800 mg PO Q8H PRN PRN Reason: Mild Pain or Fever Lidocaine HCl (Xylocaine-Mpf 1%) 10 ml INJECT ASDIRECTED PRN PRN Reason: Perineal Repair Methylergonovine Maleate (Methergine) 0.2 mg IM ASDIRECTED PRN PRN Reason: Hemorrhage Misoprostol (Cytotec) 800 mcg RECTAL ASDIRECTED PRN PRN Reason: Hemorrhage Nalbuphine HCl (Nubain) 20 mg IM ONETIME ONE Stop: 07/26/18 14:53 Last Admin: 07/26/18 15:40 Dose: 20 mg Oxytocin (Pitocin) 10 unit IM ONETIME PRN PRN Reason: Bleeding Sufentanil Citrate (Sufenta) Confirm Administered Dose 50 mcg .ROUTE .STK-MED ONE Stop: 07/26/18 18:55 Last Admin: 07/26/18 21:29 Dose: Not Given - Infant Interaction Disposition, : in Room with Family Interaction: Holding Infant Feeding: Attempted ; Nursed Fair/Poor Support Person: Significant Other - Recovery Exam Fundal Tone: Firm Fundal Level: 1 Fingerbreadths Below Umbilicus Fundal Placement: Midline Lochia Amount: Small Lochia Color: Rubra/Red Perineum Description: Edematous Episiotomy/Laceration: Approximated Bladder Status: Voiding Urinary Elimination: Voided Other Urinary Elimination, : unseen - Exam General: Alert, Oriented Lungs: Clear to Auscultation, Normal Respiratory Effort Cardiovascular: Regular Rate, Regular Rhythm, No Murmurs GI/Abdominal Exam: Soft, Non-Tender Extremities: Pedal Edema (Trace to lower extremities bilaterally) Skin: Warm, Dry, Intact - Problem List & Annotations (1) GBS (group B Streptococcus carrier), +RV culture, currently SNOMED Code(s): 1990555964232, 225161980, 9700396097441 Code(s): O99.820 - STREPTOCOCCUS B CARRIER STATE COMPLICATING Status: Acute (2) Laceration of labia majora SNOMED Code(s): 893059937 Code(s): S31.41XA - LACERATION W/O FOREIGN BODY OF VAGINA AND VULVA, INIT ENCNTR Status: Acute Annotation/Comment:: left (3) (normal spontaneous vaginal delivery) SNOMED Code(s): 43487555 Code(s): O80 - ENCOUNTER FOR FULL-TERM UNCOMPLICATED DELIVERY Status: Acute (4) Thyroid disease during in third trimester SNOMED Code(s): 929575422 Code(s): O99.283 - ENDO, NUTRITIONAL AND METAB DISEASES COMP PREG, THIRD TRI ; E07.9 - DISORDER OF THYROID, UNSPECIFIED Status: Acute (5) Vaginal bleeding during SNOMED Code(s): 53098832408267826 Code(s): O46.90 - ANTEPARTUM HEMORRHAGE, UNSPECIFIED, UNSPECIFIED TRIMESTER Status: Acute - Problem List Review Problem List Initiated/Reviewed/Updated: Yes - My Orders Last 24 Hours: My Active Orders 07/26/18 11:38 Patient Status [ADT] Routine Resuscitation Status Routine 07/26/18 11:39 Up ad Kianna [RC] ASDIRECTED 07/26/18 11:42 Acetaminophen [Tylenol] 650 mg PO Q6H PRN hydrOXYzine HCl [Atarax] 25 mg PO Q8HR PRN 07/26/18 15:10 Patient Status [ADT] Routine Notify Provider Vital Signs OB [RC] ASDIRECTED Vital Signs [RC] PER UNIT ROUTINE Ondansetron [Zofran] 4 mg IV Q4H PRN Sodium Chloride 0.9% [Saline Flush] 10 ml FLUSH ASDIRECTED PRN Saline Lock Insert [OM.PC] Routine 07/26/18 15:15 Lactated Ringers [Ringers, Lactated] 1,000 ml IV ASDIRECTED 07/26/18 22:32 Vital Signs [RC] PFP Consult to Education And Development Manager [CONS] Routine Benzocaine/Menthol [Dermoplast Pain Relief [place]] See Dose Instructions TOP Q4H PRN Docusate Sodium [Colace] 100 mg PO BID PRN Simethicone 80 mg PO Q4H PRN Assess Lochia [WOMSER] Per Unit Routine Assess Uterine Involution [WOMSER] Per Unit Routine Breast Pump [WOMSER] Per Unit Routine Ice Therapy [OM.PC] Per Unit Routine Perineal Care [OM.PC] Per Unit Routine Saline Lock Insert [OM.PC] Urgent Sitz Bath [OM.PC] Per Unit Routine 07/27/18 09:00 Vit with Ca/FA/Iron [ Plus Iron] 1 each PO DAILY - Assessment Assessment:: 33-year-old now PPD#1 status post at 38w3d - Plan Plan:: 1. Continue routine cares. 2. Continue breast-feeding. 3. Anticipate discharge 07/28/2018 Liset Contreras MD
[2018-07-27] MEDS: Escitalopram 10 MG Tab PO SCH (15:20)
[2018-07-27] MEDS: Levothyroxine 88 MCG Tab PO SCH (15:20)
[2018-07-27] MEDS ORDERED: Mirtazapine 15 MG Tab PO SCH (21:00)
[2018-07-27] MEDS: hydrOXYzine HCl 25 MG Tab PO PRN (22:00)
[2018-07-28] MEDS ORDERED: Levothyroxine 88 MCG Tab PO SCH (06:00)
[2018-07-28] MEDS: Prenatal Multivitamin with Calcium/Folic Acid/Iron Tab PO SCH (08:42)
[2018-07-28] MEDS: Levothyroxine 88 MCG Tab PO SCH (08:43)
[2018-07-28] MEDS: Escitalopram 10 MG Tab PO SCH (08:43)
[2018-07-28] MEDS: Docusate Sodium 100 MG Cap PO PRN (08:43)
[2018-07-28] MEDS: Acetaminophen 325 MG Tab PO PRN (08:43)
[2018-07-28 09:42] VITALS: BP 125/74
[2018-07-28] MEDS ORDERED: fentaNYL 100 MCG/2 ML SDV ITHECAL ONE (11:19)
[2018-07-28] MEDS ORDERED: EPINEPHrine 1 MG/ML SDV ONE (11:19)
[2018-07-28] MEDS ORDERED: Bupivacaine 0.75%/D5W 2 ML Amp INJECT ONE (11:19)
--- NOTE | 2018-07-28 12:50 | PCM.DCSUM1 ---
Discharge Summary - Hospital Course Free Text/Narrative:: 33-year-old status post at 38w3d Diagnosis: Stroke: No - Discharge Data Discharge Date: 07/28/18 Discharge Disposition: Home, Self-Care 01 Condition: Good - Patient Summary/Data Operative Procedure(s) Performed: None Complications: None Consults: Consultations 07/26/18 22:32 Consult to [place] Architect [CONS] Routine Labs Pending at D/C: None Recommended Follow-up Testing/Procedures: None Planned Operative Procedure(s) after DC: None Hospital Course: Unremarkable. Please see subjective section. - Patient Instructions Diet: Usual Diet as Tolerated Activity: As Tolerated, No Lifting Over 20 Pounds Driving: May Drive Today Showering/Bathing: May Shower Notify Provider of: Fever, Increased Pain, Swelling and Redness, Drainage - Discharge Plan *PRESCRIPTION DRUG MONITORING PROGRAM REVIEWED*: Not Applicable *COPY OF PRESCRIPTION DRUG MONITORING REPORT IN PATIENT BIMAL: Not Applicable Home Medications: Home Meds Levothyroxine 88 mcg PO ACBREAKFAST 05/30/17 [History] Escitalopram [Lexapro] 1 tab PO DAILY 07/08/17 [History] Mirtazapine 15 mg PO BEDTIME 11/26/17 [History] hydrOXYzine pamoate [Hydroxyzine Pamoate] 25 mg PO TID PRN 04/13/18 [History] Acetaminophen [Tylenol] 650 mg PO Q6H PRN tablet 07/28/18 [Rx] Docusate Sodium [Colace] 100 mg PO BID PRN cap 07/28/18 [Rx] Patient Handouts: Vaginal Delivery, Care After, Care of a Perineal Tear Referrals: Liset Contreras MD [Physician] - (6-8 weeks for routine visit ) - Discharge Summary/Plan Comment DC Time >30 min.: No Discharge Summary/Plan Comment: Discharge home today with follow-up in 6-8 weeks for routine cares. Reasons to return sooner or present to the emergency department were reviewed. Warning signs for endometritis and mastitis were reviewed. Patient voiced understanding, questions were answered. Liset Contreras MD - General Info Date of Service: 07/28/18 Subjective Update: Patient is doing well. She is ambulating without difficulty area she is tolerating a general diet. No dizziness or lightheadedness. Bleeding is slowing down. She is urinating without difficulty. She has passed gas but has not had a bowel movement. Patient is breast-feeding. This is going fairly well. She continues to supplement some due to baby being small for gestational age. Baby is latching well. No concerns per patient or per nursing. Functional Status: Reports: Pain Controlled, Tolerating Diet, Ambulating, Urinating - Review of Systems General: Reports: No Symptoms HEENT: Reports: No Symptoms Pulmonary: Reports: No Symptoms Cardiovascular: Reports: No Symptoms Gastrointestinal: Reports: No Symptoms Genitourinary: Reports: No Symptoms Musculoskeletal: Reports: No Symptoms - Patient Data Vitals - Most Recent: Last Vital Signs Temp 36.8 C 07/28/18 08:00 Pulse 74 07/28/18 08:00 Resp 16 07/28/18 08:00 BP 125/74 07/28/18 08:00 Pulse Ox 100 07/27/18 21:00 Weight - Most Recent: 200 kg Med Orders - Current: Current Medications Acetaminophen (Tylenol) 650 mg PO Q6H PRN PRN Reason: Pain Last Admin: 07/28/18 08:43 Dose: 650 mg Benzocaine/Menthol (Dermoplast Pain Relief [place]) 0 gm TOP Q4H PRN PRN Reason: Perineal comfort measures Last Admin: 07/27/18 01:53 Dose: 1 spray Docusate Sodium (Colace) 100 mg PO BID PRN PRN Reason: Constipation Last Admin: 07/28/18 08:43 Dose: 100 mg Escitalopram Oxalate (Lexapro) 20 mg PO DAILY [facility] Last Admin: 07/28/18 08:43 Dose: 20 mg Hydroxyzine HCl (Atarax) 25 mg PO Q8HR PRN PRN Reason: Anxiety Last Admin: 07/27/18 22:00 Dose: 25 mg Lactated Ringer's (Ringers, Lactated) 1,000 mls @ 125 mls/hr IV ASDIRECTED [facility] Last Admin: 07/26/18 19:15 Dose: 125 mls/hr Levothyroxine Sodium (Synthroid) 88 mcg PO ACBREAKFAST [facility] Last Admin: 07/28/18 08:43 Dose: 88 mcg Mirtazapine (Remeron) 15 mg PO BEDTIME [facility] Last Admin: 07/27/18 22:00 Dose: 15 mg Ondansetron HCl (Zofran) 4 mg IV Q4H PRN PRN Reason: Nausea/Vomiting Last Admin: 07/26/18 18:44 Dose: 4 mg Prenat Multivit/[place]/Iron/Folic Ac ( Plus Iron) 1 each PO DAILY [facility] Last Admin: 07/28/18 08:42 Dose: 1 each Simethicone (Simethicone) 80 mg PO Q4H PRN PRN Reason: Gas Sodium Chloride (Saline Flush) 10 ml FLUSH ASDIRECTED PRN PRN Reason: Keep Vein Open Discontinued Medications Bupivacaine HCl/Dextrose (Marcaine 0.75% Spinal) Confirm Administered Dose 2 ml .ROUTE .STK-MED ONE Stop: 07/26/18 18:54 Last Admin: 07/26/18 21:29 Dose: Not Given Bupivacaine HCl/Dextrose (Marcaine 0.75% Spinal) 1.4 ml INJECT .STK-MED ONE Stop: 07/28/18 11:20 Carboprost Tromethamine (Hemabate Ds) 250 mcg IM ASDIRECTED PRN PRN Reason: HEMORRHAGE Epinephrine HCl (Adrenalin) Confirm Administered Dose 1 mg .ROUTE .STK-MED ONE Stop: 07/26/18 18:55 Last Admin: 07/26/18 21:29 Dose: Not Given Epinephrine HCl (Adrenalin) 0.1 mg .XX .STK-MED ONE Stop: 07/28/18 11:20 Fentanyl (Sublimaze) Confirm Administered Dose 100 mcg .ROUTE .STK-MED ONE Stop: 07/26/18 18:54 Last Admin: 07/26/18 21:29 Dose: Not Given Fentanyl (Sublimaze) 30 mcg ITHECAL .STK-MED ONE Stop: 07/28/18 11:20 Penicillin G Potassium 5 (millunits/ Sodium Chloride) 100 mls @ 200 mls/hr IV ONETIME ONE Stop: 07/26/18 15:22 Last Admin: 07/26/18 15:38 Dose: 200 mls/hr Lactated Ringer's (Ringers, Lactated) 500 mls @ 999 mls/hr IV .BOLUS ONE Stop: 07/26/18 15:40 Last Admin: 07/27/18 02:14 Dose: Not Given Tranexamic Acid 1,000 mg/ (Sodium Chloride) 110 mls @ 660 mls/hr IV ONETIME PRN PRN Reason: Bleeding Oxytocin/Sodium Chloride (Pitocin In Ns 30 Unit/500 Ml) 30 unit in 500 mls @ 2 mls/hr IV TITRATE [facility]; Protocol Last Titration: 07/27/18 01:14 Dose: 0 mls/hr Penicillin G Potassium 2.5 (millunits/ Sodium Chloride) 100 mls @ 200 mls/hr IV Q4H [facility] Last Admin: 07/27/18 02:14 Dose: Not Given Oxytocin/Sodium Chloride (Pitocin In Ns 30 Unit/500 Ml) 30 unit in 500 mls @ 2 mls/hr IV TITRATE [facility]; Protocol Ibuprofen (Motrin) 800 mg PO Q8H PRN PRN Reason: Mild Pain or Fever Levothyroxine Sodium (Synthroid) 88 mcg PO ACBREAKFAST [facility] Lidocaine HCl (Xylocaine-Mpf 1%) 10 ml INJECT ASDIRECTED PRN PRN Reason: Perineal Repair Lidocaine HCl (Xylocaine-Mpf 1%) 3 ml INJECT .STK-MED ONE Stop: 07/28/18 11:20 Methylergonovine Maleate (Methergine) 0.2 mg IM ASDIRECTED PRN PRN Reason: Hemorrhage Misoprostol (Cytotec) 800 mcg RECTAL ASDIRECTED PRN PRN Reason: Hemorrhage Nalbuphine HCl (Nubain) 20 mg IM ONETIME ONE Stop: 07/26/18 14:53 Last Admin: 07/26/18 15:40 Dose: 20 mg Oxytocin (Pitocin) 10 unit IM ONETIME PRN PRN Reason: Bleeding Sufentanil Citrate (Sufenta) Confirm Administered Dose 50 mcg .ROUTE .STK-MED ONE Stop: 07/26/18 18:55 Last Admin: 07/26/18 21:29 Dose: Not Given Sufentanil Citrate (Sufenta) 25 mcg ITHECAL .STK-MED ONE Stop: 07/28/18 11:20 - Exam General: Reports: Alert, Oriented HEENT: Reports: Mucous Membr. Moist/[place] Lungs: Reports: Clear to Auscultation, Normal Respiratory Effort Cardiovascular: Reports: Regular Rate, Regular Rhythm, No Murmurs GI/Abdominal Exam: Soft, Non-Tender Extremities: Pedal Edema (Trace to lower extremities bilaterally) Skin: Reports: Warm, Dry, Intact
== END 2018-07-28 13:10 | disposition home or self-care (01) | DRG 774 ==
LOC: DL.OBCHECK 10:48 → UNDOADMOB 11:31 → DL.OB 11:31 → OBSVTOIN 22:05
PROVIDERS: ADMIT Family Medicine; ATTEND Family Medicine
PROC: 10E0XZZ Delivery of Products of Conception, External Approach (ICD-10-PCS; principal; 2018-07-26)
PROC: 3E0R3BZ Introduction of Anesthetic Agent into Spinal Canal, Percutaneous Approach (ICD-10-PCS; principal; 2018-07-26)
PROC: 0UQMXZZ Repair Vulva, External Approach (ICD-10-PCS; 2018-07-26)
PROC: 10907ZC Drainage of Amniotic Fluid, Therapeutic from Products of Conception, Via Natural or Artificial Opening (ICD-10-PCS; 2018-07-26)
DX: O46.93 Antepartum hemorrhage, unspecified, third trimester (principal); O99.284 Endocrine, nutritional and metabolic diseases complicating childbirth; Z3A.38 38 weeks gestation of pregnancy; Z37.0 Single live birth; O99.344 Other mental disorders complicating childbirth; F41.9 Anxiety disorder, unspecified; F32.9 Major depressive disorder, single episode, unspecified; O70.0 First degree perineal laceration during delivery; F43.10 Post-traumatic stress disorder, unspecified; F60.3 Borderline personality disorder; E03.9 Hypothyroidism, unspecified; Z79.899 Other long term (current) drug therapy; O26.893 Other specified pregnancy related conditions, third trimester; H90.0 Conductive hearing loss, bilateral; O99.334 Smoking (tobacco) complicating childbirth; F17.210 Nicotine dependence, cigarettes, uncomplicated
CPT/HCPCS: 01967; 36415; 59300; 59409; 76815; 85027; A9270-GY; J0171; J2300; J2405; J2540; J2590; J3010; J7050; J7120

== ENCOUNTER 2018-08-27 22:02 | Emergency (ER) | payer MEDICAID ==
[2018-08-27] MEDS ORDERED: Sodium Chloride 0.9% 1,000 ML IV ONE (22:31)
[2018-08-27 22:41] LABS: ANION GAP 14.5; CHLORIDE,CL 99 mmol/L (101-111); SODIUM,NA 132 mmol/L (135-145)
--- NOTE | 2018-08-27 23:08 | EDM.PDOC ---
ED HPI GENERAL MEDICAL PROBLEM - General Chief Complaint: General Stated Complaint: SICK,CHILLS [id number] Time Seen by Provider: 08/27/18 22:10 Source of Information: Reports: Patient History Limitations: Reports: No Limitations - History of Present Illness INITIAL COMMENTS - FREE TEXT/NARRATIVE: C/O fever, body aches and sore throat x 2 days. Taken tylenol last at 4pm today , Stated that she had reached maxium 4gm /day dosing. Unable to take ibuprofen due to allergy. Tolerating liquids. no vomiting or nausea. Ocassional cough. Symptoms rapid onset. Treatments MEAL ATTENDANT: Reports: Acetaminophen Generalized Pain Score (Numeric/FACES): 8 - Related Data Allergies Allergy/AdvReac Type Severity Reaction Status Date / Time bee venom protein (honey bee) Allergy Hives Verified 06/27/18 23:12 cephalexin [From Keflex] Allergy Anaphylactic Verified 06/27/18 23:12 Shock ibuprofen Allergy Anaphylactic Verified 06/27/18 23:12 Shock Home Meds: Home Meds Levothyroxine 88 mcg PO ACBREAKFAST 05/30/17 [History] Escitalopram [Lexapro] 1 tab PO DAILY 07/08/17 [History] Mirtazapine 15 mg PO BEDTIME 11/26/17 [History] hydrOXYzine pamoate [Hydroxyzine Pamoate] 25 mg PO TID PRN 04/13/18 [History] Acetaminophen [Tylenol] 650 mg PO Q6H PRN tablet 07/28/18 [Rx] Past Medical History HEENT History: Reports: Impaired Vision, Other (See Below) Other HEENT History: WEARS CORRECTIVE LENSES Cardiovascular History: Reports: None Respiratory History: Reports: Bronchitis, Recurrent Gastrointestinal History: Reports: None Genitourinary History: Reports: None CYCLE CONSULTANT History: Reports: Other CYCLE CONSULTANT History: states 13 weeks Musculoskeletal History: Reports: Fracture Other Musculoskeletal History: FX RIGHT COLLAR BONE Neurological History: Reports: Migraines Psychiatric History: Reports: Anxiety, Depression, PTSD Other Psychiatric History: borderline personality disorder Endocrine/Metabolic History: Reports: Hypothyroidism Hematologic History: Reports: Anemia Immunologic History: Reports: None Oncologic (Cancer) History: Reports: None Dermatologic History: Reports: None - Infectious Disease History Infectious Disease History: Reports: None - Past Surgical History Head Surgeries/Procedures: Reports: None HEENT Surgical History: Reports: Other (See Below) Other HEENT Surgeries/Procedures: Congenital hearing loss, congenital aural atresia, microtia, external ear surgeries, BAHA Cardiovascular Surgical History: Reports: None Respiratory Surgical History: Reports: None Endocrine Surgical History: Reports: None Neurological Surgical History: Reports: None Musculoskeletal Surgical History: Reports: None Oncologic Surgical History: Reports: None Social & Family History - Family History Family Medical History: Noncontributory Cardiac: Reports: [place] Endocrine/Metabolic: Reports: Hypothyroidism Oncologic: Reports: Brain, Breast, Pancreatic - Tobacco Use Smoking Status *Q: Current Every Day Smoker Years of Tobacco use: 19 Packs/Tins Daily: 1 - Caffeine Use Caffeine Use: Reports: Coffee, Energy Drinks, Soda, Tea - Recreational Drug Use Recreational Drug Use: No - Living Situation & Occupation Living situation: Reports: with Significant Other, with Family Occupation: Unemployed ED ROS GENERAL - Review of Systems Review Of Systems: ROS reveals no pertinent complaints other than HPI. ED EXAM, GENERAL - Physical Exam Exam: See Below Exam Limited By: No Limitations General Appearance: Alert, Moderate Distress Eye Exam: Bilateral Eye: EOMI, PERRL (mild injection, no icterus) Ears: No: Normal External Exam (canals absent, cochlear implant) Nose: Normal Inspection Throat/Mouth: Normal Inspection, Other (pharyngeal erythema mild uvula swelling airway patent, no deviation) Head: Atraumatic, Normocephalic Neck: Normal Inspection, Full Range of Motion, Lymphadenopathy (L), Lymphadenopathy (R) Respiratory/Chest: No Respiratory Distress, Lungs Clear, Normal Breath Sounds Cardiovascular: Normal Peripheral Pulses, Regular Rate, Rhythm, Tachycardia GI/Abdominal: Normal Bowel Sounds Extremities: Normal Inspection Neurological: Alert, Oriented, Normal Cognition Psychiatric: Normal Affect, Normal Mood Skin Exam: Warm, Dry, Intact, Normal Color Course - Vital Signs Last Recorded V/S: Last Vital Signs Temp 99.0 F 08/28/18 00:20 Pulse 116 H 08/28/18 00:20 Resp 20 08/28/18 00:20 BP 100/68 08/28/18 00:20 Pulse Ox 97 08/28/18 00:20 - Orders/Labs/Meds Orders: Active Orders 24 hr Category Date Time Status CULTURE BLOOD [BC] Stat Lab 08/27/18 22:14 Received Labs: Laboratory Tests 08/27/18 08/27/18 08/27/18 Range/Units 22:14 22:14 22:14 WBC 20.8 H (5.0-10.0) 10^3/uL RBC 4.14 L (4.2-5.4) 10^6/uL Hgb 12.4 (12.0-16.0) g/dL Hct 36.3 L (37.0-47.0) % MCV 87.7 (80-100) fL MCH 30.0 (27.0-34.0) pg MCHC 34.2 (33.0-35.0) g/dL Plt Count 177 (150-450) 10^3/uL Neut % (Auto) 87.6 H (42.2-75.2) % Lymph % (Auto) 7.4 L (20.5-50.1) % [place] % (Auto) 4.8 (2-8) % Eos % (Auto) 0.2 L (1.0-3.0) % Baso % (Auto) 0.0 (0.0-1.0) % Sodium 132 L (135-145) mmol/L Potassium 3.5 L (3.6-5.0) mmol/L Chloride 99 L (101-111) mmol/L Carbon Dioxide 22.0 (21.0-31.0) mmol/L Anion Gap 14.5 BUN 10 (7-18) mg/dL Creatinine 0.8 (0.6-1.3) mg/dL Est Cr Clr Drug Dosing 99.01 mL/min Estimated GFR (MDRD) > 60 BUN/Creatinine Ratio 12.50 Glucose 105 (74-105) mg/dL Lactic Acid 1.1 (0.5-2.2) mmol/L Calcium 8.8 (8.4-10.2) mg/dl Total Bilirubin 0.5 (0.2-1.0) mg/dL AST 27 (10-42) IU/L ALT 21 (10-60) IU/L Alkaline Phosphatase 115 (42-121) IU/L Total Protein 6.6 L (6.7-8.2) g/dl Albumin 3.7 (3.2-5.5) g/dl Globulin 2.9 Albumin/Globulin Ratio 1.28 Meds: Medications Discontinued Medications Generic Name Dose Route Start Last Admin Trade Name Freq PRN Reason Stop Dose Admin Acetaminophen 650 mg 08/27/18 23:14 08/27/18 23:17 Tylenol PO 08/27/18 23:15 650 mg NOW ONE Administration Sodium Chloride 1,000 mls @ 999 mls/hr 08/27/18 22:31 08/27/18 22:33 Normal Saline IV 08/27/18 23:31 999 mls/hr .BOLUS ONE Administration Clindamycin Phosphate 300 mg/ 52 mls @ 50 mls/hr 08/27/18 23:01 08/27/18 23: 17 Sodium Chloride IV 08/28/18 00:03 50 mls/hr ONETIME ONE Administration Departure - Departure Time of Disposition: 00:11 Disposition: Home, Self-Care 01 Condition: Good Clinical Impression: Strep pharyngitis - Discharge Information *PRESCRIPTION DRUG MONITORING PROGRAM REVIEWED*: Not Applicable Instructions: Strep Throat Referrals: Liset Contreras MD [Primary Care Provider] - Forms: ED Department Discharge Additional Instructions: clindamycin 300mg three times dialy for 10 days probiotic while on antibiotic increase fluid intake tylenol every 4 hours as needed for fever follow up if unable to control fever, or tolerate fluids - My Orders Last 24 Hours: My Active Orders 08/27/18 22:14 CULTURE BLOOD [BC] Stat - Assessment/Plan Last 24 Hours: My Active Orders 08/27/18 22:14 CULTURE BLOOD [BC] Stat
[2018-08-27] MEDS ORDERED: Acetaminophen 325 MG Tab PO ONE (23:14)
[2018-08-28 00:26] VITALS: BP 100/68
== END 2018-08-28 00:24 | disposition home or self-care (01) ==
LOC: DL.ED 22:02
DX: O99.53 Diseases of the respiratory system complicating the puerperium (principal); J02.0 Streptococcal pharyngitis; O99.335 Smoking (tobacco) complicating the puerperium; F17.210 Nicotine dependence, cigarettes, uncomplicated; Z79.899 Other long term (current) drug therapy; Z88.1 Allergy status to other antibiotic agents; Z88.6 Allergy status to analgesic agent; Z91.030 Bee allergy status
CPT/HCPCS: 36415; 80053; 83605; 85025; 87040; 87430; 87804; 96361; 96365; 99283; A9270; J3490; J7030; J7050

== ENCOUNTER 2019-03-21 18:14 | Emergency (ER) | payer MEDICAID ==
[2019-03-21] MEDS ORDERED: Acetaminophen/HYDROcodone 325-10 MG Tab PO ONE (20:16)
[2019-03-21] MEDS ORDERED: Rabies Vaccine (Avian) 2.5 Unit Inj Kit IM ONE (20:16)
[2019-03-21] MEDS ORDERED: Clindamycin HCl 150 MG Cap PO ONE (20:16)
[2019-03-21] MEDS ORDERED: Diphtheria,Pertussis(Acell),Tetanus Vaccine 0.5 ML SDV IM ONE (20:16)
--- NOTE | 2019-03-21 20:22 | EDM.PDOC ---
ED HPI GENERAL MEDICAL PROBLEM - General Chief Complaint: Upper Extremity Injury/Pain Stated Complaint: bite by dog, left arm Time Seen by Provider: 03/21/19 20:17 Source of Information: Reports: Patient History Limitations: Reports: No Limitations - History of Present Illness INITIAL COMMENTS - FREE TEXT/NARRATIVE: got bit by stray dog today. Left Arm Pain Score (Numeric/FACES): 7 - Related Data Allergies Allergy/AdvReac Type Severity Reaction Status Date / Time bee venom protein (honey bee) Allergy Hives Verified 03/21/19 18:45 cephalexin [From Keflex] Allergy Anaphylactic Verified 03/21/19 18:45 Shock ibuprofen Allergy Anaphylactic Verified 03/21/19 18:45 Shock Home Meds: Home Meds Levothyroxine 88 mcg PO ACBREAKFAST 05/30/17 [History] Escitalopram [Lexapro] 1 tab PO DAILY 07/08/17 [History] Mirtazapine 15 mg PO BEDTIME 11/26/17 [History] hydrOXYzine pamoate [Hydroxyzine Pamoate] 25 mg PO TID PRN 04/13/18 [History] Acetaminophen [Tylenol] 650 mg PO Q6H PRN tablet 07/28/18 [Rx] Past Medical History HEENT History: Reports: Impaired Vision, Other (See Below) Other HEENT History: WEARS CORRECTIVE LENSES Cardiovascular History: Reports: None Respiratory History: Reports: Bronchitis, Recurrent Gastrointestinal History: Reports: None Genitourinary History: Reports: None RESPIRATORY THERAPY DIRECTOR History: Reports: Other RESPIRATORY THERAPY DIRECTOR History: states 13 weeks Musculoskeletal History: Reports: Fracture Other Musculoskeletal History: FX RIGHT COLLAR BONE Neurological History: Reports: Migraines Psychiatric History: Reports: Anxiety, Depression, PTSD Other Psychiatric History: borderline personality disorder Endocrine/Metabolic History: Reports: Hypothyroidism Hematologic History: Reports: Anemia Immunologic History: Reports: None Oncologic (Cancer) History: Reports: None Dermatologic History: Reports: None - Infectious Disease History Infectious Disease History: Reports: None - Past Surgical History Head Surgeries/Procedures: Reports: None HEENT Surgical History: Reports: Other (See Below) Other HEENT Surgeries/Procedures: Congenital hearing loss, congenital aural atresia, microtia, external ear surgeries, BAHA Cardiovascular Surgical History: Reports: None Respiratory Surgical History: Reports: None Endocrine Surgical History: Reports: None Neurological Surgical History: Reports: None Musculoskeletal Surgical History: Reports: None Oncologic Surgical History: Reports: None Social & Family History - Family History Family Medical History: Noncontributory Cardiac: Reports: [place] Endocrine/Metabolic: Reports: Hypothyroidism Oncologic: Reports: Brain, Breast, Pancreatic - Tobacco Use Smoking Status *Q: Current Every Day Smoker Years of Tobacco use: 18 Packs/Tins Daily: 0.5 - Caffeine Use Caffeine Use: Reports: Coffee, Energy Drinks, Soda - Recreational Drug Use Recreational Drug Use: No - Living Situation & Occupation Living situation: Reports: with Significant Other, with Family Occupation: Unemployed Review of Systems - Review of Systems Review Of Systems: ROS reveals no pertinent complaints other than HPI. ED EXAM, GENERAL - Physical Exam Exam: See Below Exam Limited By: No Limitations General Appearance: Alert, WD/WN, Anxious, Mild Distress Ears: Hearing Grossly Normal Throat/Mouth: Normal Voice, No Airway Compromise Head: Atraumatic Neck: Non-Tender, Full Range of Motion Respiratory/Chest: No Respiratory Distress Cardiovascular: Regular Rate, Rhythm GI/Abdominal: Soft, Non-Tender Extremities: Other (left forearm 2x puncture superior sirface 1x puncture inferior surface, NV wnl, tender R/P, no active bleeding) Neurological: Alert, Oriented, Normal Cognition, Normal Gait, No Motor/Sensory Deficits Psychiatric: Tearful Skin Exam: Warm, Dry, Normal Color Lymphatic: No Adenopathy Course - Vital Signs Last Recorded V/S: Last Vital Signs Temp 36.6 C 03/21/19 18:37 Pulse 82 03/21/19 18:37 Resp 16 03/21/19 18:37 BP 114/64 03/21/19 18:37 Pulse Ox 99 03/21/19 18:37 - Orders/Labs/Meds Orders: Active Orders 24 hr Category Date Time Status Vaccines to be Administered [RC] PER UNIT ROUTINE Care 03/21/19 20:17 Active Rabies Vaccine (Jovan) [RabAvert] Med 03/21/19 20:16 Once 2.5 unit IM .ONCE ONE Medication Orders Rabies Vaccine (Rabavert) 2.5 unit IM .ONCE ONE Stop: 03/21/19 20:17 Meds: Medications Generic Name Dose Route Start Last Admin Trade Name Freq PRN Reason Stop Dose Admin Rabies Vaccine 2.5 unit 03/21/19 20:16 Rabavert IM 03/21/19 20:17 .ONCE ONE Discontinued Medications Generic Name Dose Route Start Last Admin Trade Name Freq PRN Reason Stop Dose Admin Hydrocodone Bitart/Acetaminophen 1 tab 03/21/19 20:16 [place] 325-10 Mg PO 03/21/19 20:17 ONETIME ONE Clindamycin HCl 300 mg 03/21/19 20:16 Cleocin PO 03/21/19 20:17 ONETIME ONE Diphtheria/Tetanus/Acell Pertussis 0.5 ml 03/21/19 20:16 Adacel IM 03/21/19 20:17 .ONCE ONE Departure - Departure Time of Disposition: 20:26 Disposition: Home, Self-Care 01 Condition: Good Clinical Impression: Dog bite of arm Qualifiers: Encounter type: initial encounter Laterality: left Qualified Code(s): S41.152A - Open bite of left upper arm, initial encounter - Discharge Information Instructions: Animal Bite, Adult, [id number] Forms: ED Department Discharge Additional Instructions: 1) keep wounds clean dry covered 2) return to ER for April 05 for rabies rx given; clindamycin 300mg qid x 40 vicodin 5/325mg bid prn x 6 - My Orders Last 24 Hours: My Active Orders 03/21/19 20:16 Rabies Vaccine (Jovan) [RabAvert] 2.5 unit IM .ONCE ONE 03/21/19 20:17 Vaccines to be Administered [RC] PER UNIT ROUTINE - Assessment/Plan Last 24 Hours: My Active Orders 03/21/19 20:16 Rabies Vaccine (Jovan) [RabAvert] 2.5 unit IM .ONCE ONE 03/21/19 20:17 Vaccines to be Administered [RC] PER UNIT ROUTINE
[2019-03-21 20:53] VITALS: BP 117/74
== END 2019-03-21 21:00 | disposition home or self-care (01) ==
LOC: DL.ED 18:14
DX: S41.152A Open bite of left upper arm, initial encounter (principal); Z23 Encounter for immunization; W54.0XXA Bitten by dog, initial encounter
CPT/HCPCS: 90471; 90472; 90675; 90715; 99283; A9270

== ENCOUNTER 2019-08-29 20:55 | Emergency (ER) | payer MEDICAID ==
[2019-08-29 21:14] VITALS: BP 90/74; PULSE 88
[2019-08-29] MEDS ORDERED: diphenhydrAMINE 25 MG Tab PO ONE (21:30)
[2019-08-29] MEDS ORDERED: Clindamycin HCl 150 MG Cap PO ONE (21:30)
[2019-08-29] MEDS ORDERED: Mupirocin Oint 22 GM Tube ONE (21:38)
--- NOTE | 2019-08-29 21:40 | EDM.PDOC ---
ED HPI GENERAL MEDICAL PROBLEM - General Chief Complaint: Skin Complaint Stated Complaint: BIT BY SOMETHING UP THIGH,BUTT CHEEK Time Seen by Provider: 08/29/19 21:36 Source of Information: Reports: Patient History Limitations: Reports: No Limitations - History of Present Illness INITIAL COMMENTS - FREE TEXT/NARRATIVE: got bit by something few days ago, been keeping them clean but been spreading also. Back Pain Score (Numeric/FACES): 7 - Related Data Allergies Allergy/AdvReac Type Severity Reaction Status Date / Time bee venom protein (honey bee) Allergy Hives Verified 08/29/19 21:11 cephalexin [From Keflex] Allergy Anaphylactic Verified 08/29/19 21:11 Shock ibuprofen Allergy Anaphylactic Verified 08/29/19 21:11 Shock Home Meds: Home Meds Levothyroxine 88 mcg PO ACBREAKFAST 05/30/17 [History] Escitalopram [Lexapro] 1 tab PO DAILY 07/08/17 [History] Mirtazapine 15 mg PO BEDTIME 11/26/17 [History] hydrOXYzine pamoate [Hydroxyzine Pamoate] 25 mg PO TID PRN 04/13/18 [History] Acetaminophen [Tylenol] 650 mg PO Q6H PRN tablet 07/28/18 [Rx] Past Medical History HEENT History: Reports: Impaired Vision, Other (See Below) Other HEENT History: WEARS CORRECTIVE LENSES Cardiovascular History: Reports: None Respiratory History: Reports: Bronchitis, Recurrent Gastrointestinal History: Reports: None Genitourinary History: Reports: None LAT[employer] AMERICAN STUDIES DIRECTOR History: Reports: Other LATIN AMERICAN STUDIES DIRECTOR History: states 13 weeks Musculoskeletal History: Reports: Fracture Other Musculoskeletal History: FX RIGHT COLLAR BONE Neurological History: Reports: Migraines Psychiatric History: Reports: Anxiety, Depression, PTSD Other Psychiatric History: borderline personality disorder Endocrine/Metabolic History: Reports: Hypothyroidism Hematologic History: Reports: Anemia Immunologic History: Reports: None Oncologic (Cancer) History: Reports: None Dermatologic History: Reports: None - Infectious Disease History Infectious Disease History: Reports: None - Past Surgical History Head Surgeries/Procedures: Reports: None HEENT Surgical History: Reports: Other (See Below) Other HEENT Surgeries/Procedures: Congenital hearing loss, congenital aural atresia, microtia, external ear surgeries, BAHA Cardiovascular Surgical History: Reports: None Respiratory Surgical History: Reports: None Endocrine Surgical History: Reports: None Neurological Surgical History: Reports: None Musculoskeletal Surgical History: Reports: None Oncologic Surgical History: Reports: None Social & Family History - Family History Family Medical History: Noncontributory Cardiac: Reports: [place] Endocrine/Metabolic: Reports: Hypothyroidism Oncologic: Reports: Brain, Breast, Pancreatic - Tobacco Use Smoking Status *Q: Light Tobacco Smoker Years of Tobacco use: 20 Packs/Tins Daily: 0.2 - Caffeine Use Caffeine Use: Reports: Coffee, Energy Drinks, Soda - Recreational Drug Use Recreational Drug Use: No - Living Situation & Occupation Living situation: Reports: with Significant Other, with Family Occupation: Unemployed ED ROS GENERAL - Review of Systems Review Of Systems: ROS reveals no pertinent complaints other than HPI. ED EXAM, SKIN/RASH Exam: See Below Exam Limited By: No Limitations General Appearance: Alert, WD/WN, No Apparent Distress Ears: Hearing Grossly Normal Throat/Mouth: Normal Voice, No Airway Compromise Head: Atraumatic Neck: Non-Tender, Full Range of Motion Respiratory/Chest: No Respiratory Distress Cardiovascular: Regular Rate, Rhythm GI/Abdominal: Soft, Non-Tender Extremities: Other (left thigh/buttock area multiple discreet sores without grainage at present, no s/s cellulitis-lymphangitis, NV wnl) Neurological: Alert, Oriented, Normal Cognition, Normal Gait, No Motor/Sensory Deficits Psychiatric: Normal Affect, Normal Mood Skin: Warm, Dry, Normal Color Location, Skin: Lower Extremity, Left Associated features: No: Lymphangitis, Weeping Lymphatic: No Adenopathy Course - Vital Signs Last Recorded V/S: Last Vital Signs Temp 36.8 C 08/29/19 21:11 Pulse 88 08/29/19 21:11 Resp 18 08/29/19 21:11 BP 90/74 08/29/19 21:11 Pulse Ox 99 08/29/19 21:11 - Orders/Labs/Meds Meds: Medications Discontinued Medications Generic Name Dose Route Start Last Admin Trade Name Freq PRN Reason Stop Dose Admin Clindamycin HCl 150 mg 08/29/19 21:30 Cleocin PO 08/29/19 21:31 ONETIME ONE Diphenhydramine HCl 25 mg 08/29/19 21:30 Benadryl PO 08/29/19 21:31 ONETIME ONE Departure - Departure Time of Disposition: 21:39 Disposition: Home, Self-Care 01 Condition: Good Clinical Impression: Impetigo any site - Discharge Information Instructions: Impetigo, Adult Additional Instructions: 1) don't scratch 2) keep sores clean dry cover 3) follow up at clinic rx togo; bactroban cream apply bid rx givne; clindamycin 150mg qid x 40
== END 2019-08-29 21:45 | disposition home or self-care (01) ==
LOC: DL.ED 20:55
DX: L01.00 Impetigo, unspecified (principal); F41.9 Anxiety disorder, unspecified; F32.9 Major depressive disorder, single episode, unspecified; E03.9 Hypothyroidism, unspecified; Z86.2 Personal history of diseases of the blood and blood-forming organs and certain disorders involving the immune mechanism; F17.210 Nicotine dependence, cigarettes, uncomplicated; Z88.8 Allergy status to other drugs, medicaments and biological substances; Z88.1 Allergy status to other antibiotic agents; Z91.030 Bee allergy status; Z79.899 Other long term (current) drug therapy
CPT/HCPCS: 99282; A9270

== ENCOUNTER 2020-01-08 00:01 | Inpatient (IN) | payer MEDICAID ==
[~2020-01-08 00:01] MED LIST: Butorphanol 2 MG/ML SDV IVPUSH PRN; Carboprost Tromethamine 250 MCG/1 ML Amp IM PRN; Lactated Ringers 1,000 ML IV ONE; Lidocaine 1% 30 ML SDV INJECT PRN; Methylergonovine 0.2 MG/1 ML Amp IM PRN; Misoprostol 400 MCG (4 X 100 MCG TAB) RECTAL PRN; Ondansetron 4 MG/2 ML SDV IVPUSH PRN; Oxytocin/Normal Saline 30 UNIT/500 ML BAG IV SCH; Sodium Chloride 0.9% 10 ML Syringe FLUSH PRN; Tranexamic Acid 1,000 MG in Sodium Chloride 0.9% 100 ML IV PRN; fentaNYL 100 MCG/2 ML SDV IVPUSH PRN; hydrOXYzine HCl 25 MG Tab PO PRN
[2020-01-08] MEDS ORDERED: Calcium Carbonate 500 MG Tab.Chew PO PRN (00:44)
[2020-01-08] MEDS: Misoprostol 25 MCG (1/4 of 100 MCG) Tab VAG PRN ×2 (00:56→05:00)
[2020-01-08] MEDS: Lactated Ringers 1,000 ML IV SCH ×2 (11:02→18:24)
--- NOTE | 2020-01-08 14:31 | PCM.LDHP ---
L&D History of Present Illness - General Date of Service: 01/08/20 Admit Problem/Dx: Patient Status Order with Admit Dx/Problem 01/07/20 23:38 Patient Status [ADT] Routine Admission Diagnosis/Problem Admission Diagnosis/Problem care Source of Information: Patient History Limitations: Reports: No Limitations - History of Present Illness Introduction:: 34-year-old at 38w3d presents to L&D for IOL due to IUGR with MOLDER TRIMMER% at 3.5% earlier this week. Patient is feeling well. Baby is active. She has Fabricio- Bocanegra contractions but nothing regular. No vaginal bleeding or leaking of fluid. No new headaches or vision changes. has been complicated by hypothyroidism (last TSH 1 week ago was normal ), advanced maternal age and IUGR. - Related Data Allergies/Adverse Reactions: Allergies Allergy/AdvReac Type Severity Reaction Status Date / Time bee venom protein (honey bee) Allergy Hives Verified 01/08/20 00:29 cephalexin [From Keflex] Allergy Anaphylactic Verified 01/08/20 00:29 Shock ibuprofen Allergy Anaphylactic Verified 01/08/20 00:29 Shock Home Medications: Home Meds Levothyroxine 88 mcg PO ACBREAKFAST 05/30/17 [History] Escitalopram [Lexapro] 1 tab PO DAILY 07/08/17 [History] Mirtazapine 15 mg PO BEDTIME 11/26/17 [History] hydrOXYzine pamoate [Hydroxyzine Pamoate] 25 mg PO TID PRN 04/13/18 [History] Acetaminophen [Tylenol] 650 mg PO Q6H PRN tablet 07/28/18 [Rx] Past Medical History HEENT History: Reports: Impaired Vision, Other (See Below) Other HEENT History: WEARS CORRECTIVE LENSES Cardiovascular History: Reports: None Respiratory History: Reports: Bronchitis, Recurrent Gastrointestinal History: Reports: None Genitourinary History: Reports: None SUPERINTENDENT STATIONS History: Reports: Other OB/BYN History: states 13 weeks Musculoskeletal History: Reports: Back Pain, Chronic, Fracture Other Musculoskeletal History: FX RIGHT COLLAR BONE Neurological History: Reports: Migraines Psychiatric History: Reports: Anxiety, Depression, PTSD Other Psychiatric History: borderline personality disorder Endocrine/Metabolic History: Reports: Hypothyroidism Hematologic History: Reports: Anemia Immunologic History: Reports: None Oncologic (Cancer) History: Reports: None Dermatologic History: Reports: None - Infectious Disease History Infectious Disease History: Reports: None - Past Surgical History Head Surgeries/Procedures: Reports: None HEENT Surgical History: Reports: Other (See Below) Other HEENT Surgeries/Procedures: Congenital hearing loss, congenital aural atresia, microtia, external ear surgeries, BAHA Cardiovascular Surgical History: Reports: None Respiratory Surgical History: Reports: None Endocrine Surgical History: Reports: None Neurological Surgical History: Reports: None Musculoskeletal Surgical History: Reports: None Oncologic Surgical History: Reports: None Social & Family History - Family History Family Medical History: Noncontributory Cardiac: Reports: [place] Endocrine/Metabolic: Reports: Hypothyroidism Oncologic: Reports: Brain, Breast, Pancreatic - Tobacco Use Smoking Status *Q: Current Some Day Smoker Years of Tobacco use: 10 Packs/Tins Daily: 0.2 - Caffeine Use Caffeine Use: Reports: Coffee, Soda - Alcohol Use Alcohol Use in Last Twelve Months: No - Recreational Drug Use Recreational Drug Use: No - Sexual History Sexual History: Reports: Single Partner - Living Situation & Occupation Living situation: Reports: with Significant Other, with Family Occupation: Unemployed H&P Review of Systems - Review of Systems: Review Of Systems: See Below General: Reports: No Symptoms HEENT: Reports: No Symptoms Pulmonary: Reports: No Symptoms Cardiovascular: Reports: No Symptoms Gastrointestinal: Reports: No Symptoms Genitourinary: Reports: No Symptoms Musculoskeletal: Reports: Back Pain Skin: Reports: No Symptoms Psychiatric: Reports: No Symptoms Neurological: Reports: No Symptoms L&D Exam - Exam Exam: See Below - Vital Signs Vital Signs: Last Vital Signs Temp 36.4 C 01/08/20 09:28 Pulse 84 01/08/20 12:45 Resp 20 01/08/20 06:10 BP 120/68 01/08/20 12:45 Pulse Ox Weight: 91.626 kg - OB Specific Contraction Duration (sec): 50-70 Contraction Frequency (min): 1.5-3 Contraction Intensity: Mild Movement: Active Heart Tones per Min: 135 Heart Rate (FHR) Variability: Moderate (6-25 bmp) Presentation: Vertex - Boogie Score Boogie Score Cervix Position: Posterior Boogie Score Consistency: Soft Boogie Score Effacement: 31-50% Boogie Score Dilation: 1-2 cm Boogie Score 's Station: -2 Boogie Score Total: 5 - Exam General: Alert, Oriented HEENT: Conjunctiva Clear Neck: Supple, Trachea Midline Lungs: Clear to Auscultation, Normal Respiratory Effort Cardiovascular: Regular Rate, Regular Rhythm. No: Systolic Murmur, Diastolic Murmur Genitourinary: Normal external exam Back Exam: Normal Inspection Extremities: Normal Inspection, No Pedal Edema Skin: Warm, Dry, Intact - Patient Data Lab Results Last 24 hrs: Laboratory Results - last 24 hr 01/08/20 Range/Units 00:35 WBC 16.9 H (5.0-10.0) 10^3/uL RBC 3.84 L (4.2-5.4) 10^6/uL Hgb 12.0 (12.0-16.0) g/dL Hct 34.7 L (37.0-47.0) % MCV 90.4 (80-100) fL MCH 31.3 (27.0-34.0) pg MCHC 34.6 (33.0-35.0) g/dL Plt Count 190 (150-450) 10^3/uL Result Diagrams: 01/08/20 00:35 - Problem List (1) IUGR (intrauterine growth restriction) affecting care of mother SNOMED Code(s): 113324430 ICD Code: O36.5990 - MATERN CARE FOR OTH OR SUSP POOR FETL GRTH, UNSP TRI, UNSP Status: Acute Current Visit: Yes (2) Advanced maternal age (AMA) in SNOMED Code(s): 004966883 ICD Code: [id number] - Status: Acute Current Visit: Yes (3) care in third trimester SNOMED Code(s): 238514075, 27184615, 15357521, 826773044, 451878444 ICD Code: Z34.93 - ENCNTR FOR SUPRVSN OF NORMAL PREG, UNSP, THIRD TRIMESTER Status: Acute Current Visit: No (4) Thyroid disease during in third trimester SNOMED Code(s): 017543240 ICD Code: O99.283 - ENDO, NUTRITIONAL AND METAB DISEASES COMP PREG, THIRD TRI ; E07.9 - DISORDER OF THYROID, UNSPECIFIED Status: Acute Current Visit: No Problem List Initiated/Reviewed/Updated: Yes Orders Last 24hrs: Active Orders 24 hr Category Date Time Status Patient Status [ADT] Routine ADT 01/07/20 23:38 Active Communication Order [RC] ASDIRECTED Care 01/07/20 23:41 Active Communication Order [RC] ASDIRECTED Care 01/07/20 23:41 Active Communication Order [RC] ASDIRECTED Care 01/07/20 23:41 Active Nitrous Oxide Delivery [RC] ASDIRECTED Care 01/07/20 23:40 Active Notify Provider Vital Signs OB [RC] ASDIRECTED Care 01/07/20 23:38 Active Notify Provider [RC] PRN Care 01/07/20 23:41 Active Notify Provider [RC] PRN Care 01/07/20 23:41 Active Notify Provider [RC] STAT Care 01/07/20 23:41 Active OB Discontinue Nitrous Oxide [RC] ASDIRECTED Care 01/07/20 23:40 Active POC Labs [RC] ASDIRECTED Care 01/07/20 23:38 Active Pump Management, Intrathecal [RC] ASDIRECTED Care 01/07/20 23:38 Active Up ad Kianna [RC] ASDIRECTED Care 01/07/20 23:38 Active Vaginal Exam [RC] PRN Care 01/07/20 23:41 Active Vital Signs [RC] 08,20 Care 01/07/20 23:38 Active Regular Diet [DIET] Diet 01/08/20 Breakfast Active Acetaminophen [Tylenol] Med 01/07/20 23:38 Active 650 mg PO Q4H PRN Butorphanol [Stadol] Med 01/07/20 23:38 Active 0.5 mg IVPUSH Q3H PRN Butorphanol [Stadol] Med 01/07/20 23:38 Active 1 mg IVPUSH Q3H PRN Calcium Carbonate [Tums] Med 01/08/20 00:44 Active 1,000 mg PO Q2H PRN Carboprost Tromethamine [Hemabate DS] Med 01/07/20 23:38 Active 250 mcg IM ASDIRECTED PRN Lactated Ringers [Ringers, Lactated] 1,000 ml Med 01/07/20 23:45 Active IV ASDIRECTED Levothyroxine Med 01/09/20 06:00 Ordered 125 mcg PO ACBREAKFAST Lidocaine 1% [Xylocaine-MPF 1%] Med 01/07/20 23:38 Active 30 ml INJECT ASDIRECTED PRN Methylergonovine [Methergine] Med 01/07/20 23:38 Active 0.2 mg IM ASDIRECTED PRN Ondansetron [Zofran] Med 01/07/20 23:38 Active 4 mg IVPUSH Q4H PRN Oxytocin/Normal Saline [Pitocin in NS 30 UNIT/500 ML] Med 01/07/20 23:45 Active 30 unit in 500 ml IV TITRATE Sodium Chloride 0.9% [Saline Flush] Med 01/07/20 23:38 Active 10 ml FLUSH ASDIRECTED PRN Tranexamic Acid [Cyklokapron] 1,000 mg Med 01/07/20 23:38 Active Sodium Chloride 0.9% [Normal Saline] 100 ml IV ONETIME fentaNYL [Sublimaze] Med 01/07/20 23:38 Active 100 mcg IVPUSH Q1H PRN hydrOXYzine HCL [Atarax] Med 01/07/20 23:40 Active 50 mg PO QID PRN miSOPROStoL [Cytotec] Med 01/07/20 23:41 Active 25 mcg VAG Q4H PRN miSOPROStoL [Cytotec] Med 01/07/20 23:38 Active 800 mcg RECTAL ASDIRECTED PRN Saline Lock Insert [OM.PC] Routine Oth 01/07/20 23:38 Ordered Resuscitation Status Routine Resus Stat 01/07/20 23:38 Ordered Medication Orders Acetaminophen (Tylenol) 650 mg PO Q4H PRN PRN Reason: Pain (Mild 1-3) and fever Butorphanol Tartrate (Stadol) 0.5 mg IVPUSH Q3H PRN PRN Reason: Pain Butorphanol Tartrate (Stadol) 1 mg IVPUSH Q3H PRN PRN Reason: Pain Calcium Carbonate/Glycine (Tums) 1,000 mg PO Q2H PRN PRN Reason: Indigestion Last Admin: 01/08/20 01:23 Dose: 1,000 mg Carboprost Tromethamine (Hemabate Ds) 250 mcg IM ASDIRECTED PRN PRN Reason: HEMORRHAGE Fentanyl (Sublimaze) 100 mcg IVPUSH Q1H PRN PRN Reason: Pain (moderate 4-6) Hydroxyzine HCl (Atarax) 50 mg PO QID PRN PRN Reason: Anxiety Last Admin: 01/08/20 00:55 Dose: 50 mg Lactated Ringer's (Ringers, Lactated) 1,000 mls @ 125 mls/hr IV ASDIRECTED SAVANNAH Last Admin: 01/08/20 11:02 Dose: 125 mls/hr Tranexamic Acid 1,000 mg/ (Sodium Chloride) 110 mls @ 660 mls/hr IV ONETIME PRN PRN Reason: Bleeding Oxytocin/Sodium Chloride (Pitocin In Ns 30 Unit/500 Ml) 30 unit in 500 mls @ 2 mls/hr IV TITRATE SAVANNAH; Protocol Last Titration: 01/08/20 12:33 Dose: 6 munits/min, 6 mls/hr Titration: 01/08/20 12:00 Dose: 4 munits/min, 4 mls/hr Admin: 01/08/20 11:03 Dose: 2 munits/min, 2 mls/hr Levothyroxine Sodium (Levothyroxine) 125 mcg PO ACBREAKFAST SAVANNAH Lidocaine HCl (Xylocaine-Mpf 1%) 30 ml INJECT ASDIRECTED PRN PRN Reason: Perineal Repair Methylergonovine Maleate (Methergine) 0.2 mg IM ASDIRECTED PRN PRN Reason: Hemorrhage Misoprostol (Cytotec) 800 mcg RECTAL ASDIRECTED PRN PRN Reason: Hemorrhage Misoprostol (Cytotec) 25 mcg VAG Q4H PRN PRN Reason: cervical ripening Last Admin: 01/08/20 05:00 Dose: 25 mcg Admin: 01/08/20 00:56 Dose: 25 mcg Ondansetron HCl (Zofran) 4 mg IVPUSH Q4H PRN PRN Reason: Nausea/Vomiting Sodium Chloride (Saline Flush) 10 ml FLUSH ASDIRECTED PRN PRN Reason: Keep Vein Open Assessment/Plan Comment:: 34-year-old at 38w3d presented to L&D for IOL for IUGR 1. Initiate routine intrapartum cares 2. Cytotec for cervical ripening. 3. AROM and pitocin as needed for augmentation 4. Patient does desire an intrathecal when appropriate 5. Expectant management. Anticipate Liset Contreras MD
[2020-01-08] MEDS ORDERED: fentaNYL 100 MCG/2 ML SDV ONE (18:19)
[2020-01-08] MEDS ORDERED: Sodium Bicarbonate 4.2% 2.5 MEQ/5 ML SDV ONE (18:20)
[2020-01-08] MEDS ORDERED: EPINEPHrine 1 MG/1 ML Amp ONE ×2 (18:20→18:21)
--- NOTE | 2020-01-08 18:38 | PCM.SN ---
- Free Text/Narrative Note: Intrathecal. sitting position, sterile prep and drape. 1% lidocaine w bicarb for skiinwheal to L2-L3 interspace. Introducer, 24ga Pencan x 1. Pos CSF,neg heme, neg parasthesia. 0.1 ml pf 1:1000 epi, pf NS 0.4ml, 20 mcg pf sufenta, 30 mcg pf fentanyl, and 6 mg of 0.75% pf bupivacaine injected after CSF aspiration. Pt to L lateral position. Procedure time 1820 to 1850
--- NOTE | 2020-01-08 19:54 | PCM.PNLD ---
Labor Progress Note - VS & Meds Vital Signs: Last Vital Signs Temp 37.1 C 01/08/20 18:34 Pulse 64 01/08/20 18:45 Resp 20 01/08/20 06:10 BP 110/57 L 01/08/20 18:45 Pulse Ox Active Medications: Current Medications Acetaminophen (Tylenol) 650 mg PO Q4H PRN PRN Reason: Pain (Mild 1-3) and fever Butorphanol Tartrate (Stadol) 0.5 mg IVPUSH Q3H PRN PRN Reason: Pain Butorphanol Tartrate (Stadol) 1 mg IVPUSH Q3H PRN PRN Reason: Pain Calcium Carbonate/Glycine (Tums) 1,000 mg PO Q2H PRN PRN Reason: Indigestion Last Admin: 01/08/20 01:23 Dose: 1,000 mg Carboprost Tromethamine (Hemabate Ds) 250 mcg IM ASDIRECTED PRN PRN Reason: HEMORRHAGE Fentanyl (Sublimaze) 100 mcg IVPUSH Q1H PRN PRN Reason: Pain (moderate 4-6) Hydroxyzine HCl (Atarax) 50 mg PO QID PRN PRN Reason: Anxiety Last Admin: 01/08/20 00:55 Dose: 50 mg Lactated Ringer's (Ringers, Lactated) 1,000 mls @ 125 mls/hr IV ASDIRECTED [facility] Last Admin: 01/08/20 18:24 Dose: 125 mls/hr Tranexamic Acid 1,000 mg/ (Sodium Chloride) 110 mls @ 660 mls/hr IV ONETIME PRN PRN Reason: Bleeding Oxytocin/Sodium Chloride (Pitocin In Ns 30 Unit/500 Ml) 30 unit in 500 mls @ 2 mls/hr IV TITRATE [facility]; Protocol Last Titration: 01/08/20 19:12 Dose: 12 munits/min, 12 mls/hr Levothyroxine Sodium (Levothyroxine) 125 mcg PO ACBREAKFAST [facility] Lidocaine HCl (Xylocaine-Mpf 1%) 30 ml INJECT ASDIRECTED PRN PRN Reason: Perineal Repair Methylergonovine Maleate (Methergine) 0.2 mg IM ASDIRECTED PRN PRN Reason: Hemorrhage Misoprostol (Cytotec) 800 mcg RECTAL ASDIRECTED PRN PRN Reason: Hemorrhage Misoprostol (Cytotec) 25 mcg VAG Q4H PRN PRN Reason: cervical ripening Last Admin: 01/08/20 05:00 Dose: 25 mcg Ondansetron HCl (Zofran) 4 mg IVPUSH Q4H PRN PRN Reason: Nausea/Vomiting Sodium Chloride (Saline Flush) 10 ml FLUSH ASDIRECTED PRN PRN Reason: Keep Vein Open Discontinued Medications Epinephrine HCl (Adrenalin) Confirm Administered Dose 1 mg .ROUTE .STK-MED ONE Stop: 01/08/20 18:21 Last Admin: 01/08/20 19:14 Dose: Not Given Epinephrine HCl (Adrenalin) Confirm Administered Dose 1 mg .ROUTE .STK-MED ONE Stop: 01/08/20 18:22 Last Admin: 01/08/20 19:15 Dose: Not Given Fentanyl (Sublimaze) Confirm Administered Dose 100 mcg .ROUTE .STK-MED ONE Stop: 01/08/20 18:20 Last Admin: 01/08/20 19:14 Dose: Not Given Lactated Ringer's (Ringers, Lactated) 1,000 mls @ 999 mls/hr IV BOLUS ONE Stop: 01/08/20 00:38 Last Admin: 01/08/20 17:56 Dose: 999 mls/hr Sodium Bicarbonate (Sodium Bicarbonate 4.2%) Confirm Administered Dose 2.5 meq .ROUTE .STK-MED ONE Stop: 01/08/20 18:21 Last Admin: 01/08/20 19:15 Dose: Not Given Sufentanil Citrate (Sufenta) Confirm Administered Dose 50 mcg .ROUTE .STK-MED ONE Stop: 01/08/20 18:21 Last Admin: 01/08/20 19:15 Dose: Not Given - Uterine Contractions Uterine Monitoring Mode: External [place] Contraction Intensity: Moderate to Strong Uterine Resting Tone: Soft - Monitoring Monitor Mode: External Ultrasound Heart Rate (FHR) Baseline: 135 Heart Rate (FHR) Variability: Moderate (6-25 bmp) Accelerations: Present, 15x15 Decelerations: Variable Strip Review: Category II - Vaginal Exam Dilation (cm): 5 Effacement (Percent): 75 Station: -2 Cervical Position: Anterior Sterile Vaginal Exam Performed By: Liset Contreras - Labor Progress (Free Text) Labor Progress: Contacted by nursing staff requesting to place IUPC as category 2 strip. Patient comfortable with intrathecal. AROM for moderate clear fluid. IUPC placed without difficulty.
[2020-01-08] MEDS ORDERED: Oxytocin 10 Units/1 ML SDV IM PRN (21:44)
[2020-01-08] MEDS ORDERED: Benzocaine/Menthol 20%-0.5% Spray 56 GM Canister TOP PRN (21:44)
[2020-01-08] MEDS ORDERED: Simethicone 80 MG Tab.Chew PO PRN (21:44)
[2020-01-08] MEDS ORDERED: Ibuprofen 800 MG Tab PO PRN (21:44)
--- NOTE | 2020-01-08 21:47 | PCM.DEL ---
L & D Note - General Info Date of Service: 01/08/20 Mother's Due Date: 01/19/20 - Delivery Note Labor: Augmented by ARM, Augmented by Oxytocin Cervical Ripening Method: Misoprostil Delivery Outcome: Livebirth Infant Delivery Method: Spontaneous Vaginal Delivery-Single Presentation: Vertex Nuchal Cord: None Anesthesia Type: Intrathecal Amniotic Fluid Description: Clear Episiotomy Type: None Laceration: None Cord: 3 Vessels Estimated Blood Loss: 300 Resuscitation Needed: No : Stimulated, Warmed, Lares Used Provider: Liset Contreras Score 1 min: 8 Score 5 min: 9 Delivery Comments (Free Text/Narrative):: 34-year-old now presented to L&D for IOL at 38w3d due to IUGR with EDC% of 3.5%. Patient received 2 doses of Cytotec for cervical ripening. She was unable to receive a 3rd dose due to too frequent of contractions. Pitocin was started for labor augmentation around 1000. Patient progressed appropriately. She received an intrathecal for pain control around 1820. Around 1930, AROM was performed for moderate clear fluid and an IUPC was placed. Patient progressed to complete dilation. Patient pushed for 4 minutes and delivered a viable male weighing 2615 grams and with Apgars of 8 and 9 at 1 and 5 minutes respectively. Infant was placed on the patient's chest. After cord was no longer pulsating, it was clamped x2 and cut by patient's . Cord blood was collected. The placenta delivered spontaneously and was noted to be intact. Perineum was noted to be intact. A small periurethral abrasion was noted but did not require repair. Total EBL of 300 cc. Patient tolerated the procedure well, and there were no immediate complications. Induction Criteria - Boogie Score Boogie Score Dilation: 1-2 cm Boogie Score Effacement: 60-70% Boogie Score 's Station: -2 Boogie Score Consistency: Soft Boogie Score Cervix Position: Posterior Boogie Score Total: 6 Boogie Score Presenting Part: Reports: Cephalic - Induction Gestational Age >/= 39 wks: No Medical Indication: IUGR with LINE TENDER% = 3.5% Estimated Pelvis: Reports: Adequate Reassuring Monitoring Strip: Yes Absence of Tachy Systole: No - Augmentation Estimated Pelvis: Reports: Adequate Weight Estimated:: Reports: SGA Reassuring Monitoring Strip: Yes Absence of Tachy Systole: Yes - General Info Date of Service: 01/08/20 - Patient Data Vitals - Most Recent: Last Vital Signs Temp 36.6 C 01/08/20 19:00 Pulse 61 01/08/20 19:15 Resp 18 01/08/20 19:15 BP 124/60 01/08/20 19:15 Pulse Ox Weight - Most Recent: 91.626 kg I&O - Last 24 Hours: Intake & Output 01/08/20 01/08/20 01/08/20 06:59 14:59 22:59 Intake Total 1999 Balance 1999 Lab Results Last 24 Hours: Laboratory Results - last 24 hr 01/08/20 Range/Units 00:35 WBC 16.9 H (5.0-10.0) 10^3/uL RBC 3.84 L (4.2-5.4) 10^6/uL Hgb 12.0 (12.0-16.0) g/dL Hct 34.7 L (37.0-47.0) % MCV 90.4 (80-100) fL MCH 31.3 (27.0-34.0) pg MCHC 34.6 (33.0-35.0) g/dL Plt Count 190 (150-450) 10^3/uL Med Orders - Current: Current Medications Acetaminophen (Tylenol) 650 mg PO Q4H PRN PRN Reason: Pain (Mild 1-3) and fever Calcium Carbonate/Glycine (Tums) 1,000 mg PO Q2H PRN PRN Reason: Indigestion Last Admin: 01/08/20 01:23 Dose: 1,000 mg Carboprost Tromethamine (Hemabate Ds) 250 mcg IM ASDIRECTED PRN PRN Reason: HEMORRHAGE Hydroxyzine HCl (Atarax) 50 mg PO QID PRN PRN Reason: Anxiety Last Admin: 01/08/20 00:55 Dose: 50 mg Lactated Ringer's (Ringers, Lactated) 1,000 mls @ 125 mls/hr IV ASDIRECTED [facility] Last Admin: 01/08/20 18:24 Dose: 125 mls/hr Tranexamic Acid 1,000 mg/ (Sodium Chloride) 110 mls @ 660 mls/hr IV ONETIME PRN PRN Reason: Bleeding Oxytocin/Sodium Chloride (Pitocin In Ns 30 Unit/500 Ml) 30 unit in 500 mls @ 2 mls/hr IV TITRATE [facility]; Protocol Last Titration: 01/08/20 20:25 Dose: 6 munits/min, 6 mls/hr Levothyroxine Sodium (Levothyroxine) 125 mcg PO ACBREAKFAST [facility] Methylergonovine Maleate (Methergine) 0.2 mg IM ASDIRECTED PRN PRN Reason: Hemorrhage Misoprostol (Cytotec) 800 mcg RECTAL ASDIRECTED PRN PRN Reason: Hemorrhage Ondansetron HCl (Zofran) 4 mg IVPUSH Q4H PRN PRN Reason: Nausea/Vomiting Sodium Chloride (Saline Flush) 10 ml FLUSH ASDIRECTED PRN PRN Reason: Keep Vein Open Discontinued Medications Butorphanol Tartrate (Stadol) 0.5 mg IVPUSH Q3H PRN PRN Reason: Pain Butorphanol Tartrate (Stadol) 1 mg IVPUSH Q3H PRN PRN Reason: Pain Epinephrine HCl (Adrenalin) Confirm Administered Dose 1 mg .ROUTE .STK-MED ONE Stop: 01/08/20 18:21 Last Admin: 01/08/20 19:14 Dose: Not Given Epinephrine HCl (Adrenalin) Confirm Administered Dose 1 mg .ROUTE .STK-MED ONE Stop: 01/08/20 18:22 Last Admin: 01/08/20 19:15 Dose: Not Given Fentanyl (Sublimaze) 100 mcg IVPUSH Q1H PRN PRN Reason: Pain (moderate 4-6) Fentanyl (Sublimaze) Confirm Administered Dose 100 mcg .ROUTE .[employer]MED ONE Stop: 01/08/20 18:20 Last Admin: 01/08/20 19:14 Dose: Not Given Lactated Ringer's (Ringers, Lactated) 1,000 mls @ 999 mls/hr IV BOLUS ONE Stop: 01/08/20 00:38 Last Admin: 01/08/20 17:56 Dose: 999 mls/hr Lidocaine HCl (Xylocaine-Mpf 1%) 30 ml INJECT ASDIRECTED PRN PRN Reason: Perineal Repair Misoprostol (Cytotec) 25 mcg VAG Q4H PRN PRN Reason: cervical ripening Last Admin: 01/08/20 05:00 Dose: 25 mcg Sodium Bicarbonate (Sodium Bicarbonate 4.2%) Confirm Administered Dose 2.5 meq .ROUTE .STK-MED ONE Stop: 01/08/20 18:21 Last Admin: 01/08/20 19:15 Dose: Not Given Sufentanil Citrate (Sufenta) Confirm Administered Dose 50 mcg .ROUTE .STK-MED ONE Stop: 01/08/20 18:21 Last Admin: 01/08/20 19:15 Dose: Not Given - Problem List & Annotations (1) IUGR (intrauterine growth restriction) affecting care of mother SNOMED Code(s): 774995479 Code(s): O36.5990 - MATERN CARE FOR OTH OR SUSP POOR FETL GRTH, UNSP TRI, UNSP Status: Acute (2) Advanced maternal age (AMA) in SNOMED Code(s): 752784849 Code(s): FNB7829 - Status: Acute (3) care in third trimester SNOMED Code(s): 462036373, 14266164, 43987171, 544787527, 961286342 Code(s): Z34.93 - ENCNTR FOR SUPRVSN OF NORMAL PREG, UNSP, THIRD TRIMESTER Status: Acute (4) Thyroid disease during in third trimester SNOMED Code(s): 105899104 Code(s): O99.283 - ENDO, NUTRITIONAL AND METAB DISEASES COMP PREG, THIRD TRI ; E07.9 - DISORDER OF THYROID, UNSPECIFIED Status: Acute (5) (normal spontaneous vaginal delivery) SNOMED Code(s): 62143030, 685286385 Code(s): O80 - ENCOUNTER FOR FULL-TERM UNCOMPLICATED DELIVERY Status: Acute - Problem List Review Problem List Initiated/Reviewed/Updated: Yes - My Orders Last 24 Hours: My Active Orders 01/07/20 23:38 Patient Status [ADT] Routine Notify Provider Vital Signs OB [RC] ASDIRECTED POC Labs [RC] ASDIRECTED Pump Management, Intrathecal [RC] ASDIRECTED Up ad Kianna [RC] ASDIRECTED Vital Signs [RC] 08,20 Acetaminophen [Tylenol] 650 mg PO Q4H PRN Carboprost Tromethamine [Hemabate DS] 250 mcg IM ASDIRECTED PRN Methylergonovine [Methergine] 0.2 mg IM ASDIRECTED PRN Ondansetron [Zofran] 4 mg IVPUSH Q4H PRN Sodium Chloride 0.9% [Saline Flush] 10 ml FLUSH ASDIRECTED PRN Tranexamic Acid [Cyklokapron] 1,000 mg Sodium Chloride 0.9% [Normal Saline] 100 ml IV ONETIME miSOPROStoL [Cytotec] 800 mcg RECTAL ASDIRECTED PRN Saline Lock Insert [OM.PC] Routine Resuscitation Status Routine 01/07/20 23:40 OB Discontinue Nitrous Oxide [RC] ASDIRECTED hydrOXYzine HCL [Atarax] 50 mg PO QID PRN 01/07/20 23:45 Lactated Ringers [Ringers, Lactated] 1,000 ml IV ASDIRECTED Oxytocin/Normal Saline [Pitocin in NS 30 UNIT/500 ML] 30 unit in 500 ml IV TITRATE 01/08/20 00:44 Calcium Carbonate [Tums] 1,000 mg PO Q2H PRN 01/08/20 21:44 Vital Signs [RC] PFP Benzocaine/Menthol [Dermoplast Pain Relief [place]] See Dose Instructions TOP Q4H PRN Docusate Sodium [Colace] 100 mg PO BID PRN Ibuprofen [Motrin] 800 mg PO Q8H PRN Oxytocin [Pitocin] 10 unit IM ONETIME PRN Simethicone 80 mg PO Q4H PRN Assess Lochia [WOMSER] Per Unit Routine Assess Uterine Involution [WOMSER] Per Unit Routine Breast Pump [WOMSER] Per Unit Routine Ice Therapy [OM.PC] Per Unit Routine Perineal Care [OM.PC] Per Unit Routine Sitz Bath [OM.PC] Per Unit Routine 01/08/20 Breakfast Regular Diet [DIET] Regular Diet [DIET] 01/09/20 06:00 Levothyroxine 125 mcg PO ACBREAKFAST 01/09/20 09:00 Vit with Ca/FA/Iron [ Plus Iron] 1 each PO DAILY - Assessment Assessment:: 34-year-old now status post at 38w3d after IOL for IUGR - Plan Plan:: 1. Initiate routine cares 2. Mother plans to breast and bottle feed 3. Anticipate discharge 01/10/2020 Liset Contreras MD
[2020-01-08] MEDS: Docusate Sodium 100 MG Cap PO PRN (22:26)
[2020-01-08] MEDS: Acetaminophen 325 MG Tab PO PRN (22:30)
[2020-01-09] MEDS: Levothyroxine 125 MCG Tab PO SCH (06:01)
[2020-01-09] MEDS: Docusate Sodium 100 MG Cap PO PRN (08:25)
[2020-01-09] MEDS: Acetaminophen 325 MG Tab PO PRN ×2 (08:25→17:29)
[2020-01-09] MEDS: Prenatal Multivitamin with Calcium/Folic Acid/Iron Tab PO SCH (08:25)
--- NOTE | 2020-01-09 10:41 | PCM.PNPP ---
- General Info Date of Service: 01/09/20 Subjective Update: PPD#1 s/p . Patient is doing well. No fevers or chills. Ambulating without dizziness or lightheadedness. Urinating and passing gas without issues. Tolerating a general diet. Has put baby to breast a couple times but prefers bottlefeeding as she "likes knowing how much he gets." Is thinking about pumping. Vaginal bleeding is decreasing. Patient reports low back pain that is slightly worse than her chronic back pain. She will start taking her muscle relaxers. No other concerns per patient or per nursing staff. Functional Status: Reports: Pain Controlled, Tolerating Diet, Ambulating, Urinating - Review of Systems General: Reports: No Symptoms HEENT: Reports: No Symptoms Pulmonary: Reports: No Symptoms Cardiovascular: Reports: No Symptoms Gastrointestinal: Reports: No Symptoms Genitourinary: Reports: No Symptoms Musculoskeletal: Reports: Back Pain Skin: Reports: No Symptoms Neurological: Reports: No Symptoms - General Info Date of Service: 01/09/20 - Patient Data Vital Signs - Most Recent: Last Vital Signs Temp 36.9 C 01/09/20 08:00 Pulse 94 01/09/20 08:00 Resp 18 01/09/20 08:00 BP 138/67 01/09/20 08:00 Pulse Ox 97 01/09/20 08:00 Weight - Most Recent: 91.626 kg I&O - Last 24 Hours: Intake & Output 01/08/20 01/09/20 01/09/20 22:59 06:59 14:59 Intake Total 1999 1500 Output Total 250 Balance 1999 1250 Med Orders - Current: Current Medications Acetaminophen (Tylenol) 650 mg PO Q4H PRN PRN Reason: Pain (Mild 1-3) and fever Last Admin: 01/09/20 08:25 Dose: 650 mg Benzocaine/Menthol (Dermoplast Pain Relief [place]) 0 gm TOP Q4H PRN PRN Reason: Perineal comfort measures Calcium Carbonate/Glycine (Tums) 1,000 mg PO Q2H PRN PRN Reason: Indigestion Last Admin: 01/08/20 01:23 Dose: 1,000 mg Carboprost Tromethamine (Hemabate Ds) 250 mcg IM ASDIRECTED PRN PRN Reason: HEMORRHAGE Docusate Sodium (Colace) 100 mg PO BID PRN PRN Reason: Constipation Last Admin: 01/09/20 08:25 Dose: 100 mg Hydroxyzine HCl (Atarax) 50 mg PO QID PRN PRN Reason: Anxiety Last Admin: 01/08/20 00:55 Dose: 50 mg Lactated Ringer's (Ringers, Lactated) 1,000 mls @ 125 mls/hr IV ASDIRECTED [facility] Last Admin: 01/08/20 18:24 Dose: 125 mls/hr Tranexamic Acid 1,000 mg/ (Sodium Chloride) 110 mls @ 660 mls/hr IV ONETIME PRN PRN Reason: Bleeding Oxytocin/Sodium Chloride (Pitocin In Ns 30 Unit/500 Ml) 30 unit in 500 mls @ 2 mls/hr IV TITRATE [facility]; Protocol Last Titration: 01/08/20 23:00 Dose: Infused Levothyroxine Sodium (Levothyroxine) 125 mcg PO ACBREAKFAST [facility] Last Admin: 01/09/20 06:01 Dose: 125 mcg Methylergonovine Maleate (Methergine) 0.2 mg IM ASDIRECTED PRN PRN Reason: Hemorrhage Misoprostol (Cytotec) 800 mcg RECTAL ASDIRECTED PRN PRN Reason: Hemorrhage Ondansetron HCl (Zofran) 4 mg IVPUSH Q4H PRN PRN Reason: Nausea/Vomiting Oxytocin (Pitocin) 10 unit IM ONETIME PRN PRN Reason: Bleeding Prenat Multivit/[place]/Iron/Folic Ac ( Plus Iron) 1 each PO DAILY [facility] Last Admin: 01/09/20 08:25 Dose: 1 each Simethicone (Simethicone) 80 mg PO Q4H PRN PRN Reason: Gas Sodium Chloride (Saline Flush) 10 ml FLUSH ASDIRECTED PRN PRN Reason: Keep Vein Open Discontinued Medications Butorphanol Tartrate (Stadol) 0.5 mg IVPUSH Q3H PRN PRN Reason: Pain Butorphanol Tartrate (Stadol) 1 mg IVPUSH Q3H PRN PRN Reason: Pain Epinephrine HCl (Adrenalin) Confirm Administered Dose 1 mg .ROUTE .STK-MED ONE Stop: 01/08/20 18:21 Last Admin: 01/08/20 19:14 Dose: Not Given Epinephrine HCl (Adrenalin) Confirm Administered Dose 1 mg .ROUTE .STK-MED ONE Stop: 01/08/20 18:22 Last Admin: 01/08/20 19:15 Dose: Not Given Fentanyl (Sublimaze) 100 mcg IVPUSH Q1H PRN PRN Reason: Pain (moderate 4-6) Fentanyl (Sublimaze) Confirm Administered Dose 100 mcg .ROUTE .STK-MED ONE Stop: 01/08/20 18:20 Last Admin: 01/08/20 19:14 Dose: Not Given Lactated Ringer's (Ringers, Lactated) 1,000 mls @ 999 mls/hr IV BOLUS ONE Stop: 01/08/20 00:38 Last Admin: 01/08/20 17:56 Dose: 999 mls/hr Lidocaine HCl (Xylocaine-Mpf 1%) 30 ml INJECT ASDIRECTED PRN PRN Reason: Perineal Repair Misoprostol (Cytotec) 25 mcg VAG Q4H PRN PRN Reason: cervical ripening Last Admin: 01/08/20 05:00 Dose: 25 mcg Sodium Bicarbonate (Sodium Bicarbonate 4.2%) Confirm Administered Dose 2.5 meq .ROUTE .STK-MED ONE Stop: 01/08/20 18:21 Last Admin: 01/08/20 19:15 Dose: Not Given Sufentanil Citrate (Sufenta) Confirm Administered Dose 50 mcg .ROUTE .STK-MED ONE Stop: 01/08/20 18:21 Last Admin: 01/08/20 19:15 Dose: Not Given - Infant Interaction Infant Disposition, : in Room with Family Interaction: Holding Infant Feeding: Attempted ; Nursed Fair/Poor, Bottle Fed Support Person: Significant Other - Recovery Exam Fundal Tone: Firm Fundal Level: At Umbilicus Fundal Placement: Midline Lochia Amount: Small Lochia Color: Rubra/Red Perineum Description: Intact, Minimal Bruising/Swelling Episiotomy/Laceration: None Bladder Status: Voiding - Exam HEENT: Pupils Equal, Pupils Reactive Lungs: Clear to Auscultation, Normal Respiratory Effort Cardiovascular: Regular Rate, Regular Rhythm. No: No Murmurs GI/Abdominal Exam: Soft Extremities: Normal Inspection, No Pedal Edema Skin: Warm, Dry, Intact - Problem List & Annotations (1) IUGR (intrauterine growth restriction) affecting care of mother SNOMED Code(s): 410923799 Code(s): O36.5990 - MATERN CARE FOR OTH OR SUSP POOR FETL GRTH, UNSP TRI, UNSP Status: Acute (2) Advanced maternal age (AMA) in SNOMED Code(s): 730768820 Code(s): TUE2558 - Status: Acute (3) care in third trimester SNOMED Code(s): 876517006, 78739471, 77368528, 438841896, 121988375 Code(s): Z34.93 - ENCNTR FOR SUPRVSN OF NORMAL PREG, UNSP, THIRD TRIMESTER Status: Acute (4) Thyroid disease during in third trimester SNOMED Code(s): 001488965 Code(s): O99.283 - ENDO, NUTRITIONAL AND METAB DISEASES COMP PREG, THIRD TRI ; E07.9 - DISORDER OF THYROID, UNSPECIFIED Status: Acute (5) (normal spontaneous vaginal delivery) SNOMED Code(s): 97385818, 585466861 Code(s): O80 - ENCOUNTER FOR FULL-TERM UNCOMPLICATED DELIVERY Status: Acute - Problem List Review Problem List Initiated/Reviewed/Updated: Yes - My Orders Last 24 Hours: My Active Orders 01/08/20 21:44 Vital Signs [RC] 08,20 Benzocaine/Menthol [Dermoplast Pain Relief [place]] See Dose Instructions TOP Q4H PRN Docusate Sodium [Colace] 100 mg PO BID PRN Oxytocin [Pitocin] 10 unit IM ONETIME PRN Simethicone 80 mg PO Q4H PRN Assess Lochia [WOMSER] Per Unit Routine Assess Uterine Involution [WOMSER] Per Unit Routine Breast Pump [WOMSER] Per Unit Routine Ice Therapy [OM.PC] Per Unit Routine Perineal Care [OM.PC] Per Unit Routine Sitz Bath [OM.PC] Per Unit Routine 01/09/20 06:00 Levothyroxine 125 mcg PO ACBREAKFAST 01/09/20 09:00 Vit with Ca/FA/Iron [ Plus Iron] 1 each PO DAILY - Assessment Assessment:: 34-year-old PPD#1 status post at 38w3d for IUGR - Plan Plan:: 1. Continue routine cares 2. Mix of and bottle feeding 3. Anticipate discharge 01/10/2020 Liset Contreras MD
[2020-01-10] MEDS: Levothyroxine 125 MCG Tab PO SCH (06:29)
[2020-01-10] MEDS: Acetaminophen 325 MG Tab PO PRN ×2 (07:46→12:56)
[2020-01-10] MEDS: Prenatal Multivitamin with Calcium/Folic Acid/Iron Tab PO SCH ×2 (07:46→09:14)
[2020-01-10] MEDS: Docusate Sodium 100 MG Cap PO PRN (07:46)
[2020-01-10 07:54] VITALS: BP 113/85; PULSE 81
--- NOTE | 2020-01-10 11:31 | PCM.DCSUM1 ---
Discharge Summary - Discharge Data Discharge Disposition: Home, Self-Care 01 Condition: Good - Referral to Home Health Primary Care Physician: Victorino Contreras MD - Discharge Diagnosis/Problem(s) (1) IUGR (intrauterine growth restriction) affecting care of mother SNOMED Code(s): 235432205 ICD Code: O36.5990 - MATERN CARE FOR OTH OR SUSP POOR FETL GRTH, UNSP TRI, UNSP Status: Acute Current Visit: Yes (2) Advanced maternal age (AMA) in SNOMED Code(s): 524514412 ICD Code: [id number] - Status: Acute Current Visit: Yes (3) care in third trimester SNOMED Code(s): 282905319, 06678304, 97931025, 227894885, 713643240 ICD Code: Z34.93 - ENCNTR FOR SUPRVSN OF NORMAL PREG, UNSP, THIRD TRIMESTER Status: Acute Current Visit: No (4) Thyroid disease during in third trimester SNOMED Code(s): 541838333 ICD Code: O99.283 - ENDO, NUTRITIONAL AND METAB DISEASES COMP PREG, THIRD TRI ; E07.9 - DISORDER OF THYROID, UNSPECIFIED Status: Acute Current Visit: No - Discharge Plan Home Medications: Home Meds Levothyroxine 88 mcg PO ACBREAKFAST 05/30/17 [History] Escitalopram [Lexapro] 1 tab PO DAILY 07/08/17 [History] Mirtazapine 15 mg PO BEDTIME 11/26/17 [History] hydrOXYzine pamoate [Hydroxyzine Pamoate] 25 mg PO TID PRN 04/13/18 [History] Acetaminophen [Tylenol] 650 mg PO Q6H PRN tablet 07/28/18 [Rx] - Patient Data Vitals - Most Recent: Last Vital Signs Temp 36.9 C 01/10/20 07:53 Pulse 81 01/10/20 07:53 Resp 18 01/10/20 07:53 BP 113/85 01/10/20 07:53 Pulse Ox 98 01/10/20 07:53 Weight - Most Recent: 91.626 kg Med Orders - Current: Current Medications Acetaminophen (Tylenol) 650 mg PO Q4H PRN PRN Reason: Pain (Mild 1-3) and fever Last Admin: 01/10/20 07:46 Dose: 650 mg Benzocaine/Menthol (Dermoplast Pain Relief [place]) 0 gm TOP Q4H PRN PRN Reason: Perineal comfort measures Calcium Carbonate/Glycine (Tums) 1,000 mg PO Q2H PRN PRN Reason: Indigestion Last Admin: 01/08/20 01:23 Dose: 1,000 mg Carboprost Tromethamine (Hemabate Ds) 250 mcg IM ASDIRECTED PRN PRN Reason: HEMORRHAGE Docusate Sodium (Colace) 100 mg PO BID PRN PRN Reason: Constipation Last Admin: 01/10/20 07:46 Dose: 100 mg Hydroxyzine HCl (Atarax) 50 mg PO QID PRN PRN Reason: Anxiety Last Admin: 01/08/20 00:55 Dose: 50 mg Lactated Ringer's (Ringers, Lactated) 1,000 mls @ 125 mls/hr IV ASDIRECTED [facility] Last Admin: 01/08/20 18:24 Dose: 125 mls/hr Tranexamic Acid 1,000 mg/ (Sodium Chloride) 110 mls @ 660 mls/hr IV ONETIME PRN PRN Reason: Bleeding Oxytocin/Sodium Chloride (Pitocin In Ns 30 Unit/500 Ml) 30 unit in 500 mls @ 2 mls/hr IV TITRATE [facility]; Protocol Last Titration: 01/08/20 23:00 Dose: Infused Levothyroxine Sodium (Levothyroxine) 125 mcg PO ACBREAKFAST [facility] Last Admin: 01/10/20 06:29 Dose: 125 mcg Methylergonovine Maleate (Methergine) 0.2 mg IM ASDIRECTED PRN PRN Reason: Hemorrhage Misoprostol (Cytotec) 800 mcg RECTAL ASDIRECTED PRN PRN Reason: Hemorrhage Ondansetron HCl (Zofran) 4 mg IVPUSH Q4H PRN PRN Reason: Nausea/Vomiting Oxytocin (Pitocin) 10 unit IM ONETIME PRN PRN Reason: Bleeding Prenat Multivit/[place]/Iron/Folic Ac ( Plus Iron) 1 each PO DAILY [facility] Last Admin: 01/10/20 09:14 Dose: Not Given Simethicone (Simethicone) 80 mg PO Q4H PRN PRN Reason: Gas Sodium Chloride (Saline Flush) 10 ml FLUSH ASDIRECTED PRN PRN Reason: Keep Vein Open Discontinued Medications Butorphanol Tartrate (Stadol) 0.5 mg IVPUSH Q3H PRN PRN Reason: Pain Butorphanol Tartrate (Stadol) 1 mg IVPUSH Q3H PRN PRN Reason: Pain Epinephrine HCl (Adrenalin) Confirm Administered Dose 1 mg .ROUTE .STK-MED ONE Stop: 01/08/20 18:21 Last Admin: 01/08/20 19:14 Dose: Not Given Epinephrine HCl (Adrenalin) Confirm Administered Dose 1 mg .ROUTE .STK-MED ONE Stop: 01/08/20 18:22 Last Admin: 01/08/20 19:15 Dose: Not Given Fentanyl (Sublimaze) 100 mcg IVPUSH Q1H PRN PRN Reason: Pain (moderate 4-6) Fentanyl (Sublimaze) Confirm Administered Dose 100 mcg .ROUTE .STK-MED ONE Stop: 01/08/20 18:20 Last Admin: 01/08/20 19:14 Dose: Not Given Lactated Ringer's (Ringers, Lactated) 1,000 mls @ 999 mls/hr IV BOLUS ONE Stop: 01/08/20 00:38 Last Admin: 01/08/20 17:56 Dose: 999 mls/hr Lidocaine HCl (Xylocaine-Mpf 1%) 30 ml INJECT ASDIRECTED PRN PRN Reason: Perineal Repair Misoprostol (Cytotec) 25 mcg VAG Q4H PRN PRN Reason: cervical ripening Last Admin: 01/08/20 05:00 Dose: 25 mcg Sodium Bicarbonate (Sodium Bicarbonate 4.2%) Confirm Administered Dose 2.5 meq .ROUTE .STK-MED ONE Stop: 01/08/20 18:21 Last Admin: 01/08/20 19:15 Dose: Not Given Sufentanil Citrate (Sufenta) Confirm Administered Dose 50 mcg .ROUTE .STK-MED ONE Stop: 01/08/20 18:21 Last Admin: 01/08/20 19:15 Dose: Not Given
--- NOTE | 2020-01-10 11:33 | PCM.DCSUM1 ---
Discharge Summary - Hospital Course Free Text/Narrative:: 34-year-old PPD#2 status post at 38w3d after IOL for IUGR Diagnosis: Stroke: No - Discharge Data Discharge Date: 01/10/20 Discharge Disposition: Home, Self-Care 01 Condition: Good - Referral to Home Health Primary Care Physician: Victorino Contreras MD - Discharge Diagnosis/Problem(s) (1) IUGR (intrauterine growth restriction) affecting care of mother SNOMED Code(s): 473974612 ICD Code: O36.5990 - MATERN CARE FOR OTH OR SUSP POOR FETL GRTH, UNSP TRI, UNSP Status: Acute (2) Advanced maternal age (AMA) in SNOMED Code(s): 454813062 ICD Code: HSW2206 - Status: Acute (3) care in third trimester SNOMED Code(s): 665831265, 53127419, 08571073, 674829178, 987720797 ICD Code: Z34.93 - ENCNTR FOR SUPRVSN OF NORMAL PREG, UNSP, THIRD TRIMESTER Status: Acute (4) Thyroid disease during in third trimester SNOMED Code(s): 633103658 ICD Code: O99.283 - ENDO, NUTRITIONAL AND METAB DISEASES COMP PREG, THIRD TRI ; E07.9 - DISORDER OF THYROID, UNSPECIFIED Status: Acute (5) (normal spontaneous vaginal delivery) SNOMED Code(s): 14263880, 732051621 ICD Code: O80 - ENCOUNTER FOR FULL-TERM UNCOMPLICATED DELIVERY Status: Acute - Patient Summary/Data Operative Procedure(s) Performed: None Complications: None Consults: None Labs Pending at D/C: None Recommended Follow-up Testing/Procedures: None Planned Operative Procedure(s) after DC: None Hospital Course: Please see subjective section - Patient Instructions Diet: Usual Diet as Tolerated Activity: As Tolerated, No Lifting Over 20 Pounds Driving: May Drive Today Showering/Bathing: May Shower Notify Provider of: Fever, Increased Pain, Swelling and Redness, Drainage, Nausea and/or Vomiting - Discharge Plan *PRESCRIPTION DRUG MONITORING PROGRAM REVIEWED*: Not Applicable *COPY OF PRESCRIPTION DRUG MONITORING REPORT IN PATIENT BIMAL: Not Applicable Home Medications: Home Meds Levothyroxine 88 mcg PO ACBREAKFAST 05/30/17 [History] Escitalopram [Lexapro] 1 tab PO DAILY 07/08/17 [History] Mirtazapine 15 mg PO BEDTIME 11/26/17 [History] hydrOXYzine pamoate [Hydroxyzine Pamoate] 25 mg PO TID PRN 04/13/18 [History] Acetaminophen [Tylenol] 650 mg PO Q6H PRN tablet 07/28/18 [Rx] Docusate Sodium [Colace] 100 mg PO BID PRN cap 01/10/20 [Rx] Patient Handouts: Vaginal Delivery Referrals: Liset Contreras MD [Primary Care Provider] - (Please schedule 6 week appointment with PCP.) - Discharge Summary/Plan Comment DC Time >30 min.: No Discharge Summary/Plan Comment: Discharge home today with follow-up in 6-8 weeks for routine care. Patient will continue to pump adl dewey. Reasons to present to the clinic or ED were reviewed with the patient, and all questions were answered. - General Info Date of Service: 01/10/20 Functional Status: Reports: Pain Controlled, Tolerating Diet, Ambulating, Urinating. Denies: New Symptoms - Review of Systems General: Reports: No Symptoms HEENT: Reports: No Symptoms Pulmonary: Reports: No Symptoms Cardiovascular: Reports: No Symptoms Gastrointestinal: Reports: No Symptoms Genitourinary: Reports: No Symptoms Musculoskeletal: Reports: Back Pain Skin: Reports: No Symptoms Neurological: Reports: No Symptoms - Patient Data Vitals - Most Recent: Last Vital Signs Temp 36.9 C 01/10/20 07:53 Pulse 81 01/10/20 07:53 Resp 18 01/10/20 07:53 BP 113/85 01/10/20 07:53 Pulse Ox 98 01/10/20 07:53 Weight - Most Recent: 91.626 kg Med Orders - Current: Current Medications Acetaminophen (Tylenol) 650 mg PO Q4H PRN PRN Reason: Pain (Mild 1-3) and fever Last Admin: 01/10/20 07:46 Dose: 650 mg Benzocaine/Menthol (Dermoplast Pain Relief [place]) 0 gm TOP Q4H PRN PRN Reason: Perineal comfort measures Calcium Carbonate/Glycine (Tums) 1,000 mg PO Q2H PRN PRN Reason: Indigestion Last Admin: 01/08/20 01:23 Dose: 1,000 mg Carboprost Tromethamine (Hemabate Ds) 250 mcg IM ASDIRECTED PRN PRN Reason: HEMORRHAGE Docusate Sodium (Colace) 100 mg PO BID PRN PRN Reason: Constipation Last Admin: 01/10/20 07:46 Dose: 100 mg Hydroxyzine HCl (Atarax) 50 mg PO QID PRN PRN Reason: Anxiety Last Admin: 01/08/20 00:55 Dose: 50 mg Lactated Ringer's (Ringers, Lactated) 1,000 mls @ 125 mls/hr IV ASDIRECTED SAVANNAH Last Admin: 01/08/20 18:24 Dose: 125 mls/hr Tranexamic Acid 1,000 mg/ (Sodium Chloride) 110 mls @ 660 mls/hr IV ONETIME PRN PRN Reason: Bleeding Oxytocin/Sodium Chloride (Pitocin In Ns 30 Unit/500 Ml) 30 unit in 500 mls @ 2 mls/hr IV TITRATE [facility]; Protocol Last Titration: 01/08/20 23:00 Dose: Infused Levothyroxine Sodium (Levothyroxine) 125 mcg PO ACBREAKFAST [facility] Last Admin: 01/10/20 06:29 Dose: 125 mcg Methylergonovine Maleate (Methergine) 0.2 mg IM ASDIRECTED PRN PRN Reason: Hemorrhage Misoprostol (Cytotec) 800 mcg RECTAL ASDIRECTED PRN PRN Reason: Hemorrhage Ondansetron HCl (Zofran) 4 mg IVPUSH Q4H PRN PRN Reason: Nausea/Vomiting Oxytocin (Pitocin) 10 unit IM ONETIME PRN PRN Reason: Bleeding Prenat Multivit/[place]/Iron/Folic Ac ( Plus Iron) 1 each PO DAILY [facility] Last Admin: 01/10/20 09:14 Dose: Not Given Simethicone (Simethicone) 80 mg PO Q4H PRN PRN Reason: Gas Sodium Chloride (Saline Flush) 10 ml FLUSH ASDIRECTED PRN PRN Reason: Keep Vein Open Discontinued Medications Butorphanol Tartrate (Stadol) 0.5 mg IVPUSH Q3H PRN PRN Reason: Pain Butorphanol Tartrate (Stadol) 1 mg IVPUSH Q3H PRN PRN Reason: Pain Epinephrine HCl (Adrenalin) Confirm Administered Dose 1 mg .ROUTE .STK-MED ONE Stop: 01/08/20 18:21 Last Admin: 01/08/20 19:14 Dose: Not Given Epinephrine HCl (Adrenalin) Confirm Administered Dose 1 mg .ROUTE .STK-MED ONE Stop: 01/08/20 18:22 Last Admin: 01/08/20 19:15 Dose: Not Given Fentanyl (Sublimaze) 100 mcg IVPUSH Q1H PRN PRN Reason: Pain (moderate 4-6) Fentanyl (Sublimaze) Confirm Administered Dose 100 mcg .ROUTE .STK-MED ONE Stop: 01/08/20 18:20 Last Admin: 01/08/20 19:14 Dose: Not Given Lactated Ringer's (Ringers, Lactated) 1,000 mls @ 999 mls/hr IV BOLUS ONE Stop: 01/08/20 00:38 Last Admin: 01/08/20 17:56 Dose: 999 mls/hr Lidocaine HCl (Xylocaine-Mpf 1%) 30 ml INJECT ASDIRECTED PRN PRN Reason: Perineal Repair Misoprostol (Cytotec) 25 mcg VAG Q4H PRN PRN Reason: cervical ripening Last Admin: 01/08/20 05:00 Dose: 25 mcg Sodium Bicarbonate (Sodium Bicarbonate 4.2%) Confirm Administered Dose 2.5 meq .ROUTE .STK-MED ONE Stop: 01/08/20 18:21 Last Admin: 01/08/20 19:15 Dose: Not Given Sufentanil Citrate (Sufenta) Confirm Administered Dose 50 mcg .ROUTE .STK-MED ONE Stop: 01/08/20 18:21 Last Admin: 01/08/20 19:15 Dose: Not Given - Exam General: Reports: Alert Lungs: Reports: Clear to Auscultation, Normal Respiratory Effort Cardiovascular: Reports: Regular Rate, Regular Rhythm, No Murmurs GI/Abdominal Exam: Soft, Non-Tender Back Exam: Reports: Normal Inspection Extremities: Normal Inspection, No Pedal Edema Skin: Reports: Warm, Dry, Intact
== END 2020-01-10 13:06 | disposition home or self-care (01) | DRG 807 ==
LOC: DL.OBCHECK 00:01 → DL.OB 00:02 → OBSVTOIN 21:08 → DL.OB 21:08 → EDSTATUS 23:43
PROVIDERS: ADMIT Family Medicine; ATTEND Family Medicine
PROC: 10E0XZZ Delivery of Products of Conception, External Approach (ICD-10-PCS; principal; 2020-01-08)
PROC: 3E0P7VZ Introduction of Hormone into Female Reproductive, Via Natural or Artificial Opening (ICD-10-PCS; 2020-01-08)
PROC: 10907ZC Drainage of Amniotic Fluid, Therapeutic from Products of Conception, Via Natural or Artificial Opening (ICD-10-PCS; 2020-01-08)
PROC: 3E0R3BZ Introduction of Anesthetic Agent into Spinal Canal, Percutaneous Approach (ICD-10-PCS; 2020-01-08)
PROC: 10H07YZ Insertion of Other Device into Products of Conception, Via Natural or Artificial Opening (ICD-10-PCS; 2020-01-08)
DX: O36.5930 Maternal care for other known or suspected poor fetal growth, third trimester, not applicable or unspecified (principal); Z37.0 Single live birth; O99.334 Smoking (tobacco) complicating childbirth; F17.210 Nicotine dependence, cigarettes, uncomplicated; E03.9 Hypothyroidism, unspecified; O99.284 Endocrine, nutritional and metabolic diseases complicating childbirth; Z91.030 Bee allergy status; Z88.1 Allergy status to other antibiotic agents; Z88.5 Allergy status to narcotic agent; Z79.899 Other long term (current) drug therapy; Z3A.38 38 weeks gestation of pregnancy
CPT/HCPCS: 36415; 59025; 59409; 85027; A9270-GY; J2590; J7120

== ENCOUNTER 2020-05-07 15:11 | Emergency (ER) | payer MEDICAID ==
[2020-05-07] MEDS ORDERED: Acetaminophen/HYDROcodone 325-10 MG Tab PO ONE (15:12)
[2020-05-07] MEDS ORDERED: Cyclobenzaprine 10 MG Tab PO ONE (15:12)
[2020-05-07] MEDS ORDERED: HYDROmorphone 1 MG/ML Syringe IM ONE (15:26)
[2020-05-07] MEDS ORDERED: Ondansetron 4 MG Tab.DIS PO ONE (15:26)
[2020-05-07 15:28] VITALS: BP 107/84; PULSE 100
[2020-05-07] MEDS ORDERED: Bacitracin Oint 1 GM U/D Packet TOP ONE (15:30)
--- NOTE | 2020-05-07 16:05 | CR ---
PROCEDURE INFORMATION: Exam: XR Right Hip with Pelvis when Performed Exam date and time: 05/07/2020 3:38 PM Age: 35 years old Clinical indication: Other: Bucked off horse/pain right; Additional info: Bucked off horse, low back, RT rib, RT hip pain TECHNIQUE: Imaging protocol: XR Right hip with pelvis when performed. Views: 2 or 3 views. COMPARISON: No relevant prior studies available. FINDINGS: Bones/joints: Unremarkable. No acute fracture. Soft tissues: Unremarkable. IMPRESSION: No acute fracture or dislocation.
--- NOTE | 2020-05-07 16:05 | CR ---
PROCEDURE INFORMATION: Exam: XR Lumbosacral Spine, 2 or 3 Views Exam date and time: 05/07/2020 3:41 PM Age: 35 years old Clinical indication: Other: Bucked off horse/pain; Additional info: Bucked off horse, low back, RT rib, RT hip pain TECHNIQUE: Imaging protocol: XR of the lumbosacral spine, 2 or 3 views. COMPARISON: MR Lumbar Spine Comp wo Cont 01/28/2019 2:52 PM FINDINGS: Vertebrae: Normal. No acute fracture. Normal alignment. Soft tissues: Unremarkable. IMPRESSION: No sign of acute lumbar spine injury.
--- NOTE | 2020-05-07 16:08 | CR ---
PROCEDURE INFORMATION: Exam: XR Right Ribs Exam date and time: 05/07/2020 3:42 PM Age: 35 years old Clinical indication: Other: Bucked off horse, low right rib pain; Additional info: Bucked off horse, low back, RT rib, RT hip pain TECHNIQUE: Imaging protocol: XR Right ribs. Views: 2 views. COMPARISON: CR Chest 2V 06/01/2017 8:07 PM FINDINGS: Bones/joints: Old fracture deformities posterior right 3rd and posterolateral 10th ribs. No acute fracture. Age-appropriate spondylosis. Soft tissues: Normal. IMPRESSION: No fracture.
--- NOTE | 2020-05-07 16:18 | EDM.PDOC ---
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 She was able to move all extremities and ambulate with a steady gait. Patient states that it was painful to walk. Patient was bucked off a horse today at noon. She denies loss of consciousness, head injury, neck pain, or any other injury. She was able to stand after being thrown landing on the ground and walked into the ER. Onset: Today Onset Date: 05/07/20 Onset Time: 12:00 Duration: Constant Location: Reports: Chest, Back, Pelvis, Lower Extremity, Right Quality: Reports: Ache Severity: Severe Improves with: Reports: Immobilization, Rest Worsens with: Reports: Movement Associated Symptoms: Reports: No Other Symptoms Bilateral Hip Pain Score (Numeric/FACES): 7 - Related Data Allergies Allergy/AdvReac Type Severity Reaction Status Date / Time bee venom protein (honey bee) Allergy Hives Verified 05/07/20 15:24 cephalexin [From Keflex] Allergy Anaphylactic Verified 05/07/20 15:24 Shock ibuprofen Allergy Anaphylactic Verified 05/07/20 15:24 Shock Home Meds: Home Meds Levothyroxine 88 mcg PO ACBREAKFAST 05/30/17 [History] Escitalopram [Lexapro] 1 tab PO DAILY 07/08/17 [History] Mirtazapine 15 mg PO BEDTIME 11/26/17 [History] hydrOXYzine pamoate [Hydroxyzine Pamoate] 25 mg PO TID PRN 04/13/18 [History] Acetaminophen [Tylenol] 650 mg PO Q6H PRN tablet 07/28/18 [Rx] Docusate Sodium [Colace] 100 mg PO BID PRN cap 01/10/20 [Rx] Past Medical History HEENT History: Reports: 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.), Impaired Vision, Other (See Below) Other HEENT History: WEARS CORRECTIVE LENSES Cardiovascular History: Reports: None Respiratory History: Reports: Bronchitis, Recurrent Gastrointestinal History: Reports: None Genitourinary History: Reports: None 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 EMPLOYMENT LAW SPECIALIST History: states 13 weeks Musculoskeletal History: Reports: Back Pain, Chronic, Fracture Other Musculoskeletal History: FX RIGHT COLLAR BONE Neurological History: Reports: Migraines Psychiatric History: Reports: Anxiety, Depression, PTSD Other Psychiatric History: borderline personality disorder Endocrine/Metabolic History: Reports: Hypothyroidism Hematologic History: Reports: Anemia Immunologic History: Reports: None Oncologic (Cancer) History: Reports: None Dermatologic History: Reports: None - Infectious Disease History Infectious Disease History: Reports: None - Past Surgical History Head Surgeries/Procedures: Reports: None HEENT Surgical History: Reports: Other (See Below) Other HEENT Surgeries/Procedures: Congenital hearing loss, congenital aural atresia, microtia, external ear surgeries, BAHA Cardiovascular Surgical History: Reports: None Respiratory Surgical History: Reports: None Endocrine Surgical History: Reports: None Neurological Surgical History: Reports: None Musculoskeletal Surgical History: Reports: None Oncologic Surgical History: Reports: None Social & Family History - Family History Family Medical History: Noncontributory Cardiac: Reports: [place] Endocrine/Metabolic: Reports: Hypothyroidism Oncologic: Reports: Brain, Breast, Pancreatic - Caffeine Use Caffeine Use: Reports: Coffee, Soda - Sexual History Sexual History: Reports: Single Partner - Living Situation & Occupation Living situation: Reports: with Significant Other, with Family Occupation: Unemployed Review of Systems - Review of Systems Review Of Systems: Comprehensive ROS is negative, except as noted in HPI. ED EXAM, GENERAL - Physical Exam Exam: See Below Exam Limited By: No Limitations General Appearance: Alert, WD/WN, No Apparent Distress, Anxious, Obese Eye Exam: Bilateral Eye: EOMI, Normal Inspection, PERRL Nose: Normal Inspection, No Blood Throat/Mouth: Normal Inspection, Normal Lips, Normal Teeth, Normal Gums, Normal Oropharynx, Normal Voice, No Airway Compromise Head: Atraumatic, Normocephalic Neck: Normal Inspection, Supple, Non-Tender, Full Range of Motion Respiratory/Chest: No Respiratory Distress, Lungs Clear, Normal Breath Sounds, No Accessory Muscle Use, Splinting, Other (Tender at Rt lateral lower ribs, no visible swelling, bruising, or deformity.) Cardiovascular: Normal Peripheral Pulses, Regular Rate, Rhythm GI/Abdominal: Normal Bowel Sounds, Soft, Non-Tender, No Organomegaly, No Distention, No Abnormal Bruit, No Mass (Female) Exam: Deferred Rectal (Female) Exam: Deferred Back Exam: Full Range of Motion, Muscle Spasm (Lumbar), Paraspinal Tenderness ( Lumbar), Vertebral Tenderness (Lumbar). No: CVA Tenderness (L), CVA Tenderness (R) Extremities: No Pedal Edema, Normal Capillary Refill, Leg Pain (Rt hip), Limited Range of Motion (Rt hip), Other (Superficial abrasion to Rt buttock). No: Joint Swelling, Arm Pain, Marcos's Sign, Increased Warmth Neurological: Alert, Oriented, CN II-XII Intact, Normal Cognition, Normal Gait, No Motor/Sensory Deficits Psychiatric: Anxious Skin Exam: Warm, Dry Course - Vital Signs Last Recorded V/S: Last Vital Signs Temp 97.6 F 05/07/20 15:25 Pulse 100 05/07/20 15:25 Resp 16 05/07/20 15:25 BP 107/84 05/07/20 15:25 Pulse Ox 100 05/07/20 15:25 - Orders/Labs/Meds Meds: Medications Discontinued Medications Generic Name Dose Route Start Last Admin Trade Name Dorian PRN Reason Stop Dose Admin Bacitracin 1 dose 05/07/20 15:30 05/07/20 15:36 Bacitracin Oint 1 Gm TOP 05/07/20 15:31 1 dose ONETIME ONE Administration Hydromorphone HCl 2 mg 05/07/20 15:26 05/07/20 15:36 Dilaudid IM 05/07/20 15:27 2 mg ONETIME ONE Administration Ondansetron HCl 4 mg 05/07/20 15:26 05/07/20 15:37 Zofran Odt PO 05/07/20 15:27 4 mg ONETIME ONE Administration - Radiology Interpretation Free Text/Narrative:: Right hip with pelvis: No fracture or dislocation. See rad report. Lumbar spine: No acute lumbar spine injury. See rad report. Chest with right ribs: No acute fractures. See rad report. Departure - Departure Time of Disposition: 16:15 Disposition: Home, Self-Care 01 Condition: Good Clinical Impression: Animal-rider injured by fall from or being thrown from horse in noncollision accident, initial encounter, Contusion of hip, Acute low back pain due to trauma Injury of chest wall Qualifiers: Encounter type: initial encounter Qualified Code(s): S29.9XXA - Unspecified injury of thorax, initial encounter Abrasion of buttock, right Qualifiers: Encounter type: initial encounter Qualified Code(s): S30.810A - Abrasion of lower back and pelvis, initial encounter - Discharge Information *PRESCRIPTION DRUG MONITORING PROGRAM REVIEWED*: No *COPY OF PRESCRIPTION DRUG MONITORING REPORT IN PATIENT BIMAL: No Instructions: Contusion, Abrasion, Acute Back Pain, Adult Forms: ED Department Discharge Additional Instructions: Rx: Cyclobenzaprine 10mg Rx: Hydrocodone 5mg/325mg Ice packs as needed. Hot soaks for muscle spasms. Activity as tolerated. Follow up in clinic next week if not improving as expected. Sepsis Event Note - Focused Exam Vital Signs: Vital Signs Temp Pulse Resp BP Pulse Ox 05/07/20 15:25 97.6 F 100 16 107/84 100 Date Exam was Performed: 05/07/20 Time Exam was Performed: 16:15 I have read and agree with the documentation that has been completed regarding this visit. By signing this record, I attest that the documentation was completed in my physical presence and is an accurate record of the encounter.
[2020-05-07] MEDS ORDERED: Acetaminophen/HYDROcodone 325-10 MG Tab ONE (16:21)
[2020-05-07] MEDS ORDERED: Cyclobenzaprine 10 MG Tab ONE (16:21)
== END 2020-05-07 16:26 | disposition home or self-care (01) ==
LOC: DL.ED 15:11
DX: S70.01XA Contusion of right hip, initial encounter (principal); S30.810A Abrasion of lower back and pelvis, initial encounter; S29.9XXA Unspecified injury of thorax, initial encounter; F41.9 Anxiety disorder, unspecified; F32.9 Major depressive disorder, single episode, unspecified; E03.9 Hypothyroidism, unspecified; Z91.030 Bee allergy status; Z88.1 Allergy status to other antibiotic agents; Z88.6 Allergy status to analgesic agent; Z79.899 Other long term (current) drug therapy; V80.010A Animal-rider injured by fall from or being thrown from horse in noncollision accident, initial encounter
CPT/HCPCS: 71100; 72100; 73502; 96372; 99283; A9270; J1170

== ENCOUNTER 2020-10-28 19:14 | Emergency (ER) | payer MEDICAID ==
[2020-10-28 19:50] VITALS: BP 111/94; PULSE 100
[2020-10-28 20:07] LABS: ANION GAP 13.4 mEq/L (7-13)
[2020-10-28] MEDS ORDERED: Dicyclomine 20 MG/2 ML SDV IM ONE (20:22)
[2020-10-28] MEDS ORDERED: Loperamide 2 MG Cap PO ONE (20:22)
[2020-10-28] MEDS ORDERED: Iopamidol 612 MG/ML 100 ML Bottle IVPUSH ONE (20:25)
--- NOTE | 2020-10-28 20:32 | EDM.PDOC ---
ED HPI GENERAL MEDICAL PROBLEM - General Chief Complaint: Gastrointestinal Problem Stated Complaint: BLOODY STOOLS Time Seen by Provider: 10/28/20 20:27 Source of Information: Reports: Patient History Limitations: Reports: No Limitations - History of Present Illness INITIAL COMMENTS - FREE TEXT/NARRATIVE: few days h/o abd pain with loose/watery diarrhoea then tonight had blood streaks on paper. denies has no fallopian tubes. Lower Abdomen Pain Score (Numeric/FACES): 8 - Related Data Allergies Allergy/AdvReac Type Severity Reaction Status Date / Time bee venom protein (honey bee) Allergy Hives Verified 05/07/20 15:24 cephalexin [From Keflex] Allergy Anaphylactic Verified 05/07/20 15:24 Shock ibuprofen Allergy Anaphylactic Verified 05/07/20 15:24 Shock Home Meds: Home Meds Levothyroxine 88 mcg PO ACBREAKFAST 05/30/17 [History] Escitalopram [Lexapro] 1 tab PO DAILY 07/08/17 [History] Mirtazapine 15 mg PO BEDTIME 11/26/17 [History] hydrOXYzine pamoate [Hydroxyzine Pamoate] 25 mg PO TID PRN 04/13/18 [History] Acetaminophen [Tylenol] 650 mg PO Q6H PRN tablet 07/28/18 [Rx] Docusate Sodium [Colace] 100 mg PO BID PRN cap 01/10/20 [Rx] Past Medical History HEENT History: Reports: Hard of Hearing, Impaired Vision, Other (See Below) Other HEENT History: WEARS CORRECTIVE LENSES Cardiovascular History: Reports: None Respiratory History: Reports: Bronchitis, Recurrent Gastrointestinal History: Reports: Hemorrhoids Genitourinary History: Reports: None HOME HEALTH CNA History: Reports: Other HOME HEALTH CNA History: states 13 weeks Musculoskeletal History: Reports: Back Pain, Chronic, Fracture Other Musculoskeletal History: FX RIGHT COLLAR BONE Neurological History: Reports: Migraines Psychiatric History: Reports: Anxiety, Depression, PTSD Other Psychiatric History: borderline personality disorder Endocrine/Metabolic History: Reports: Hypothyroidism Hematologic History: Reports: Anemia Immunologic History: Reports: None Oncologic (Cancer) History: Reports: None Dermatologic History: Reports: None - Infectious Disease History Infectious Disease History: Reports: None - Past Surgical History Head Surgeries/Procedures: Reports: None HEENT Surgical History: Reports: Other (See Below) Other HEENT Surgeries/Procedures: Congenital hearing loss, congenital aural atresia, microtia, external ear surgeries, BAHA Cardiovascular Surgical History: Reports: None Respiratory Surgical History: Reports: None GI Surgical History: Reports: None Endocrine Surgical History: Reports: None Neurological Surgical History: Reports: None Musculoskeletal Surgical History: Reports: None Oncologic Surgical History: Reports: None Social & Family History - Family History Family Medical History: No Pertinent Family History Cardiac: Reports: [place] Endocrine/Metabolic: Reports: Hypothyroidism Oncologic: Reports: Brain, Breast, Pancreatic - Tobacco Use Tobacco Use Status *Q: Current Every Day Tobacco User Years of Tobacco use: 21 Packs/Tins Daily: 0.5 - Caffeine Use Caffeine Use: Reports: Coffee, Soda - Recreational Drug Use Recreational Drug Use: No - Sexual History Sexual History: Reports: Single Partner - Living Situation & Occupation Living situation: Reports: with Significant Other, with Family Occupation: Unemployed ED ROS GENERAL - Review of Systems Review Of Systems: Comprehensive ROS is negative, except as noted in HPI. ED EXAM, GI/ABD - Physical Exam Exam: See Below Exam Limited By: No Limitations General Appearance: Alert, WD/WN, Mild Distress, Other (discomfort). No: Active Emesis Ears: Hearing Grossly Normal Throat/Mouth: Normal Voice, No Airway Compromise Head: Atraumatic Neck: Non-Tender, Full Range of Motion Respiratory/Chest: No Respiratory Distress Cardiovascular: Regular Rate, Rhythm GI/Abdominal Exam: Tender, Other (generalized discomfort, hyper BS). No: Distended, Guarding, Rigid, Rebound (Female) Exam: Deferred Rectal (Female) Exam: Deferred Neurological: Alert, Oriented, Normal Cognition, Normal Gait, No Motor/Sensory Deficits Psychiatric: Flat Affect Skin Exam: Warm, Dry, Normal Color Lymphatic: No Adenopathy Course - Vital Signs Last Recorded V/S: Last Vital Signs Temp 36.0 C L 10/28/20 19:20 Pulse 100 10/28/20 19:20 Resp 19 10/28/20 19:20 BP 111/94 H 10/28/20 19:20 Pulse Ox 99 10/28/20 19:20 - Orders/Labs/Meds Orders: Active Orders 24 hr Category Date Time Status CLOSTRIDIUM DIFFICILE TOX RFLX [MREF] Routine Lab 10/28/20 19:21 Received Labs: Laboratory Tests 11/27/20 11/27/20 11/27/20 Range/Units 19:40 19:40 19:40 WBC 9.5 (5.0-10.0) 10^3/uL RBC 5.00 (4.2-5.4) 10^6/uL Hgb 14.8 D (12.0-16.0) g/dL Hct 41.6 (37.0-47.0) % MCV 83.2 D (80-100) fL MCH 29.6 (27.0-34.0) pg MCHC 35.6 H (33.0-35.0) g/dL Plt Count 219 (150-450) 10^3/uL Neut % (Auto) 54.5 (42.2-75.2) % Lymph % (Auto) 29.0 (20.5-50.1) % [place] % (Auto) 8.8 H (2-8) % Eos % (Auto) 7.5 H (1.0-3.0) % Baso % (Auto) 0.2 (0.0-1.0) % PT 9.5 (9.0-12.0) SEC INR 1.0 (0.9-1.2) APTT 21.0 L (22.0-34.0) SEC Sodium 136 (136-145) mmol/L Potassium 3.4 L (3.5-5.1) mmol/L Chloride 98 (98-107) mmol/L Carbon Dioxide 28 (21-32) mmol/L Anion Gap 13.4 H (7-13) mEq/L BUN 13 (7-18) mg/dL Creatinine 1.16 H (0.55-1.02) mg/dL Est Cr Clr Drug Dosing 66.98 mL/min Estimated GFR (MDRD) 53 BUN/Creatinine Ratio 11.2 (No establ ref range) Glucose 100 H (74-99) mg/dL Calcium 8.8 (8.5-10.1) mg/dL Total Bilirubin 0.3 (0.2-1.0) mg/dL AST 15 (15-37) U/L ALT 24 (14-59) U/L Alkaline Phosphatase 106 (46-116) U/L Total Protein 7.1 (6.4-8.2) g/dL Albumin 3.5 (3.4-5.0) g/dL Globulin 3.6 Albumin/Globulin Ratio 1.0 Meds: Medications Discontinued Medications Generic Name Dose Route Start Last Admin Trade Name Fretin PRN Reason Stop Dose Admin Dicyclomine HCl 20 mg 10/28/20 20:22 10/28/20 20:47 Bentyl IM 10/28/20 20:23 20 mg ONETIME ONE Administration Iopamidol 100 ml 10/28/20 20:25 10/28/20 20:39 Isovue-300 (61%) IVPUSH 10/28/20 20:26 100 ml ONETIME ONE Administration Loperamide HCl 2 mg 10/28/20 20:22 10/28/20 20:47 Imodium PO 10/28/20 20:23 2 mg ONETIME ONE Administration - Re-Assessments/Exams Free Text/Narrative Re-Assessment/Exam: 10/28/20 21:37 results discussed with pt. Departure - Departure Time of Disposition: 21:38 Disposition: Home, Self-Care 01 Condition: Good Clinical Impression: Gastroenteritis, Diarrhea - Discharge Information Instructions: Food Choices to Help Relieve Diarrhea, Adult Forms: ED Department Discharge Additional Instructions: 1) avoid solid foods next 5 days 2) see Dr Contreras Saturday for possible COLONOSCOPY for rectal bleeding rx given; bentyl 10mg bid prn cramps x 12 imodium 2mg bid prn diarrhoea x 12 Sepsis Event Note (ED) - Evaluation Sepsis Screening Result: No Definite Risk - Focused Exam Vital Signs: Vital Signs Temp Pulse Resp BP Pulse Ox 10/28/20 19:20 36.0 C L 100 19 111/94 H 99 - My Orders Last 24 Hours: My Active Orders 10/28/20 19:21 CLOSTRIDIUM DIFFICILE TOX RFLX [MREF] Routine - Assessment/Plan Last 24 Hours: My Active Orders 10/28/20 19:21 CLOSTRIDIUM DIFFICILE TOX RFLX [MREF] Routine
--- NOTE | 2020-10-28 21:14 | CT ---
PROCEDURE INFORMATION: Exam: CT Abdomen And Pelvis With Contrast Exam date and time: 10/28/2020 8:55 PM Age: 35 years old Clinical indication: Other: Diarrhea; Additional info: Pain bloody stool TECHNIQUE: Imaging protocol: Computed tomography of the abdomen and pelvis with intravenous contrast. Radiation optimization: All CT scans at this facility use at least one of these dose optimization techniques: automated exposure control; mA and/or kV adjustment per patient size (includes targeted exams where dose is matched to clinical indication); or iterative reconstruction. Contrast material: [id number]; Contrast volume: 100 ml; Contrast route: INTRAVENOUS (IV); COMPARISON: No relevant prior studies available. FINDINGS: Lungs: There is scarring with mild traction bronchiectasis in the medial aspect of the right middle lobe. There are no pleural effusions. Liver: The liver is homogeneous in appearance without focal hepatic lesions. Gallbladder and bile ducts: The gallbladder is not distended. There is no biliary ductal dilatation. Pancreas: The pancreas is within normal limits. Spleen: The spleen is normal in size. Adrenal glands: The adrenal glands are normal in appearance. Kidneys and ureters: The kidneys are symmetric in size. There is a 3 mm nonobstructing calculus in the lower pole of the left kidney. No calculi are identified in the right kidney. There is no hydronephrosis or renal mass. The ureters are normal in caliber. No intraluminal filling defects are identified. Stomach and bowel: The stomach is not distended. There is circumferential wall thickening of multiple loops of jejunum in the left upper quadrant. The majority of the ileum appears normal. There is significant wall thickening and inflammation involving the entirety of the colon. Appendix: There is a normal appendix in the right lower quadrant. Intraperitoneal space: There is no free air or free fluid in the abdomen or pelvis. Vasculature: The abdominal aorta is normal in caliber. The celiac axis, SMA and LEONEL are patent. Lymph nodes: No pathologically enlarged lymph nodes are identified in the abdomen or pelvis. Urinary bladder: The urinary bladder appears normal. Reproductive: The uterus is normal in appearance. The ovaries appear normal bilaterally. Bones/joints: There is normal alignment throughout the visualized portion of the spine. There are nonacute fracture deformities of the right superior and inferior pubic rami. Soft tissues: The soft tissues are within normal limits. IMPRESSION: 1. Circumferential wall thickening of multiple loops of jejunum in the left upper quadrant as well as the entirety of the colon. Findings could reflect infectious or inflammatory bowel disease. There is no evidence of perforation or abscess. 2. Nonobstructing calculus in the lower pole of the left kidney. 3. Healing fractures of the right superior and inferior pubic rami.
== END 2020-10-28 21:47 | disposition home or self-care (01) ==
LOC: DL.ED 19:14
DX: K52.9 Noninfective gastroenteritis and colitis, unspecified (principal); E03.9 Hypothyroidism, unspecified; F41.9 Anxiety disorder, unspecified; F32.9 Major depressive disorder, single episode, unspecified; F17.210 Nicotine dependence, cigarettes, uncomplicated; Z91.030 Bee allergy status; Z88.1 Allergy status to other antibiotic agents; Z88.6 Allergy status to analgesic agent; Z79.899 Other long term (current) drug therapy
CPT/HCPCS: 36415; 74177; 80053; 82272; 85025; 85610; 85730; 87493; 96372; 99285; A9270; J0500; Q9967

== ENCOUNTER 2020-11-28 05:41 | Day surgery (SDC) | payer MEDICAID ==
[2020-11-28] MEDS ORDERED: Midazolam 1 MG/ML 2 ML SDV IV ONE ×7 (05:42→06:35)
[2020-11-28] MEDS ORDERED: fentaNYL 100 MCG/2 ML SDV IV ONE ×4 (05:42→06:37)
[2020-11-28] MEDS ORDERED: Midazolam 1 MG/ML 2 ML SDV ONE (06:20)
[2020-11-28] MEDS ORDERED: fentaNYL 100 MCG/2 ML SDV ONE (06:20)
[2020-11-28] MEDS ORDERED: Sodium Chloride 0.9% 10 ML Syringe FLUSH PRN (07:32)
[2020-11-28] MEDS ORDERED: Dextrose 5%-0.45% NaCl 1,000 ML IV SCH (07:45)
--- NOTE | 2020-11-28 07:58 | OR ---
DATE: 11/28/2020 PROCEDURE: Total colonoscopy, narrow-band imaging, and multiple pinch biopsies. INSTRUMENT USED: [id number]-H190DL Olympus video colonoscope. PREMEDICATIONS: Fentanyl 125 mcg intravenous, Versed 4 mg intravenous. The procedure was done under pulse oximetry, BP recording, and cardiac cath lab technologist. INDICATION: The patient with rectal bleeding and abdominal pain unexplained and not responsive to medical measures. Recent CT suggestive of thickened colonic as well as small bowel wall. Colonoscopic examination is done for detection of any polypoid lesions and removal, inflammatory bowel disease also under consideration, endoscopic hemostasis therapy if needed. DESCRIPTION OF PROCEDURE: Initial rectal exam was unremarkable. Rigid anoscopy showed some prolapse of the rectal mucosa and small hemorrhoids without bleeding from them. The colonoscope was passed with ease. Some mild patchy erythema of the distal rectal mucosa was noted, NBI views were taken, photographs were obtained. Multiple pinch biopsies were taken from the distal rectal mucosa with patchy erythema and also from normal-appearing distal sigmoid colon and sent for histopathology. The scope was passed with ease through the ileocecal area. Photographs were taken of the normal-appearing cecum identified by appendiceal orifice and thin-lipped ileocecal valve, preventing further advancement of the scope tip to visualize terminal ileum. No bleeding was noted from any of the visualized areas at the commencement of the examination. There was moderate amount of liquid and semi-liquid as well as solid fecal material that had to be aspirated. Bowel preparation [place] scale 2 in all the regions, total score of 6. No stricture. No vascular ectasia. No large isolated ulcerations seen. No polyp or tumor mass identified. Probing the proximal sides of folds and flexures using adequate distention and clearing up the stool material, withdrawal of the scope was made, cecum to rectum time over 6 minutes. No bleeding was noted from any of the visualized areas at the completion of examination. IMPRESSION: Internal hemorrhoids. The patient tolerated the procedure well. [facility] /[id number]
[2020-11-28 11:18] VITALS: BP 107/74; PULSE 70
== END 2020-11-28 09:57 | disposition home or self-care (01) ==
LOC: DL.ENDO 05:41
PROVIDERS: ATTEND Internal Medicine Gastroenterology
DX: K62.5 Hemorrhage of anus and rectum (principal); K64.8 Other hemorrhoids; E03.9 Hypothyroidism, unspecified; F32.9 Major depressive disorder, single episode, unspecified; Z98.890 Other specified postprocedural states; Z88.8 Allergy status to other drugs, medicaments and biological substances; Z79.890 Hormone replacement therapy; Z79.899 Other long term (current) drug therapy
CPT/HCPCS: J2250; J3010; J7042

== ENCOUNTER 2023-01-05 13:05 | Emergency (ER) | payer MEDICAID | END 2023-01-05 14:51 | disposition left against medical advice (07) | LOC: DL.ED 13:05 | DX: Z53.21 Procedure and treatment not carried out due to patient leaving prior to being seen by health care provider (principal) ==